=== PATIENT | male | born 1980 | race Caucasian/White ===

== ENCOUNTER 2016-10-01 07:52 | Outpatient (CLI) | payer OTHER ==
[~2016-10-01] VITALS: Ht 170.2 cm; Wt 69.4 kg
[~2016-10-01 07:52] MED LIST: BACTROBAN TOP; DEPA1TAB3 PO; DILA2TAB OR; HEPARIN IV; INVE1.5T PO; INVE156I IM; NICO21DI4 TD; NICODERM CQ TOP; No Historical Meds; No home meds; PERC7.5T8 OR; PRIV5INJ IV; PROZ20CA11 PO; RISP2TAB30 PO; SALINE FLUSHES IV; TRAM50TA2 OR; TRAZ50TA4 PO; TRIAMCINOLONE TOP; VANCOMYCIN IV; [UNRECOGNIZED DRUG - OTHER] PO; anexsia; anexsia PO
[2016-10-01] MEDS ORDERED: ACETAMINOPHEN TAB 650MG DOSE (2X325MG) PO ONE (08:00)
[2016-10-01] MEDS ORDERED: FAMOTIDINE INJ 20MG/2ML VIAL (S0028) IV ONE (08:00)
[2016-10-01] MEDS ORDERED: IMMUNE GLOBULIN 10% 5 GM in APPROPRIATE DILUENT 1 EA IV ONE (08:00)
[2016-10-01] MEDS ORDERED: diphenhydrAMINE INJ 50MG/ML VIAL (J1200) IV ONE (08:00)
[2016-10-01] MEDS ORDERED: IMMUNE GLOBULIN 10% 20 GM in APPROPRIATE DILUENT 1 EA IV ONE (08:00)
[2016-10-01] MEDS ORDERED: dexameTHASONE 20 MG/5 ML VIAL (J1100) IV ONE (08:00)
[2016-10-01] MEDS ORDERED: MEPERIDINE INJ 25 MG/ML VIAL (J2175) IV ONE (08:00)
== END 2016-10-01 11:30 | disposition home or self-care (01) ==
LOC: M INFU 07:52
PROVIDERS: ATTEND Internal Medicine Infectious Disease
DX: D83.9 Common variable immunodeficiency, unspecified (principal); Z88.6 Allergy status to analgesic agent; Z88.0 Allergy status to penicillin; Z88.2 Allergy status to sulfonamides; Z79.899 Other long term (current) drug therapy
CPT/HCPCS: 96365; 96366; 96375; J1100; J1200; J1568; J2175

== ENCOUNTER 2016-10-29 07:54 | Outpatient (CLI) | payer OTHER ==
[~2016-10-29] VITALS: Ht 170.2 cm; Wt 69.4 kg
[2016-10-29] MEDS ORDERED: ACETAMINOPHEN TAB 650MG DOSE (2X325MG) PO ONE (08:15)
[2016-10-29] MEDS ORDERED: dexameTHASONE 20 MG/5 ML VIAL (J1100) IV ONE (08:15)
[2016-10-29] MEDS ORDERED: diphenhydrAMINE INJ 50MG/ML VIAL (J1200) IV ONE (08:15)
[2016-10-29] MEDS ORDERED: MEPERIDINE INJ 25 MG/ML VIAL (J2175) IV ONE (08:15)
[2016-10-29] MEDS ORDERED: FAMOTIDINE INJ 20MG/2ML VIAL (S0028) IV ONE (08:30)
[2016-10-29] MEDS ORDERED: IMMUNE GLOBULIN 10% 5 GM in APPROPRIATE DILUENT 1 EA IV ONE (08:30)
[2016-10-29] MEDS ORDERED: IMMUNE GLOBULIN 10% 20 GM in APPROPRIATE DILUENT 1 EA IV ONE (08:30)
== END 2016-10-29 11:15 | disposition home or self-care (01) ==
LOC: M INFU 07:54
PROVIDERS: ATTEND Internal Medicine Infectious Disease
DX: D83.9 Common variable immunodeficiency, unspecified (principal); Z79.899 Other long term (current) drug therapy; Z88.8 Allergy status to other drugs, medicaments and biological substances; Z88.0 Allergy status to penicillin; Z88.1 Allergy status to other antibiotic agents; Z88.2 Allergy status to sulfonamides
CPT/HCPCS: 96365; 96366; 96375; J1100; J1200; J1568; J2175

== ENCOUNTER 2016-11-26 08:21 | Outpatient (CLI) | payer OTHER ==
[~2016-11-26] VITALS: Ht 170.2 cm; Wt 69.4 kg
[2016-11-26] MEDS ORDERED: diphenhydrAMINE INJ 50MG/ML VIAL (J1200) IV ONE (08:45)
[2016-11-26] MEDS ORDERED: FAMOTIDINE INJ 20MG/2ML VIAL (S0028) IV ONE (08:45)
[2016-11-26] MEDS ORDERED: ACETAMINOPHEN TAB 650MG DOSE (2X325MG) PO ONE (09:00)
[2016-11-26] MEDS ORDERED: IMMUNE GLOBULIN 10% 5 GM in APPROPRIATE DILUENT 1 EA IV ONE (09:00)
[2016-11-26] MEDS ORDERED: MEPERIDINE INJ 25 MG/ML VIAL (J2175) IV ONE (09:00)
[2016-11-26] MEDS ORDERED: dexameTHASONE 20 MG/5 ML VIAL (J1100) IV ONE (09:00)
[2016-11-26] MEDS ORDERED: IMMUNE GLOBULIN 10% 20 GM in APPROPRIATE DILUENT 1 EA IV ONE (09:00)
== END 2016-11-26 12:00 | disposition home or self-care (01) ==
LOC: M INFU 08:21
PROVIDERS: ATTEND Internal Medicine Infectious Disease
DX: D83.9 Common variable immunodeficiency, unspecified (principal); Z88.2 Allergy status to sulfonamides; Z88.1 Allergy status to other antibiotic agents; Z88.8 Allergy status to other drugs, medicaments and biological substances; Z88.0 Allergy status to penicillin
CPT/HCPCS: 96365; 96366; 96375; J1100; J1200; J1568; J2175

== ENCOUNTER 2016-12-27 08:54 | Outpatient (CLI) | payer OTHER ==
[~2016-12-27] VITALS: Ht 170.2 cm; Wt 69.4 kg
[2016-12-27] MEDS ORDERED: ACETAMINOPHEN TAB 650MG DOSE (2X325MG) PO ONE (09:15)
[2016-12-27] MEDS ORDERED: dexameTHASONE 20 MG/5 ML VIAL (J1100) IV ONE (09:15)
[2016-12-27] MEDS ORDERED: MEPERIDINE INJ 25 MG/ML VIAL (J2175) IV ONE (09:15)
[2016-12-27] MEDS ORDERED: IMMUNE GLOBULIN 10% 5 GM in APPROPRIATE DILUENT 1 EA IV ONE ×2 (09:15→09:45)
[2016-12-27] MEDS ORDERED: diphenhydrAMINE INJ 50MG/ML VIAL (J1200) IV ONE (09:15)
[2016-12-27] MEDS ORDERED: IMMUNE GLOBULIN 10% 20 GM in APPROPRIATE DILUENT 1 EA IV ONE ×2 (09:15→09:45)
[2016-12-27] MEDS ORDERED: FAMOTIDINE IV BAG 20 MG in APPROPRIATE DILUENT 1 EA IV ONE (09:15)
== END 2016-12-27 13:00 | disposition home or self-care (01) ==
LOC: M INFU 08:54
PROVIDERS: ATTEND Internal Medicine Infectious Disease
DX: D83.9 Common variable immunodeficiency, unspecified (principal)
CPT/HCPCS: 96365; 96366; 96374; 96375; J1100; J1200; J1568; J2175

== ENCOUNTER → 2017-01-17 | Outpatient (REF) | payer OTHER ==
[2017-01-17 11:58] LABS: BASO # 0.1 K/mm3 (0.0-0.2); BASO % 0.9 % (0.0-1.0); EOS # 0.2 K/mm3 (0.0-0.50); LARGE UNSTAINED CELL # 0.1 K/mm3 (0.0-0.4); LARGE UNSTAINED CELL % 1.5 % (0.0-4.0); LYMPH # 1.9 K/mm3 (1.5-4.5); LYMPH % 20.6 % (24.0-44.0); MEAN CORPUSCULAR HEMOGLOBIN 30.4 pg (27.0-33.0); MEAN CORPUSCULAR HGB CONC 34.8 g/dl (32.0-36.5); MEAN CORPUSCULAR VOLUME 87.4 fl (80.0-96.0); MONO # 0.5 K/mm3 (0.0-0.8); MONO % 5.9 % (0.0-5.0); NEUTROPHILS # 5.8 K/mm3 (1.8-7.7); NEUTROPHILS % 69.2 % (36.0-66.0); PLATELET COUNT, AUTOMATED 267 k/mm3 (150-450); RED CELL DISTRIBUTION WIDTH 12.7 % (11.5-14.5); WHITE BLOOD COUNT 8.4 K/mm3 (4.0-10.0)
[2017-01-17 12:20] LABS: ALBUMIN 4.2 GM/DL (3.2-5.2); ALBUMIN/GLOBULIN RATIO 1.5 (1.00-1.93); BILIRUBIN,DIRECT 0.2 MG/DL (0.0-0.2); BILIRUBIN,TOTAL 1.1 MG/DL (0.2-1.0); FREE T4 1.15 NG/DL (0.76-1.46); IMMUNOGLOBULIN A 21.2 MG/DL (70-400)
== END ==
LOC: M SFHCPLAZ 09:51
PROVIDERS: ATTEND Internal Medicine Infectious Disease
DX: D83.9 Common variable immunodeficiency, unspecified (principal); R00.2 Palpitations; R12 Heartburn

== ENCOUNTER 2017-01-28 10:26 | Outpatient (CLI) | payer OTHER ==
[~2017-01-28] VITALS: Ht 170.2 cm; Wt 69.4 kg
[2017-01-28] MEDS ORDERED: ACETAMINOPHEN TAB 650MG DOSE (2X325MG) PO ONE (10:45)
[2017-01-28] MEDS ORDERED: MEPERIDINE INJ 25 MG/ML VIAL (J2175) IV ONE (11:00)
[2017-01-28] MEDS ORDERED: IMMUNE GLOBULIN 10% 5 GM in APPROPRIATE DILUENT 1 EA IV ONE (11:00)
[2017-01-28] MEDS ORDERED: IMMUNE GLOBULIN 10% 20 GM in APPROPRIATE DILUENT 1 EA IV ONE (11:00)
[2017-01-28] MEDS ORDERED: diphenhydrAMINE INJ 50MG/ML VIAL (J1200) IV ONE (11:00)
[2017-01-28] MEDS ORDERED: dexameTHASONE 20 MG/5 ML VIAL (J1100) IV ONE (11:00)
[2017-01-28] MEDS ORDERED: FAMOTIDINE IV BAG 20 MG in APPROPRIATE DILUENT 1 EA IV ONE (11:00)
== END 2017-01-28 14:20 | disposition home or self-care (01) ==
LOC: M INFU 10:26
PROVIDERS: ATTEND Internal Medicine Infectious Disease
DX: D83.9 Common variable immunodeficiency, unspecified (principal); Z79.899 Other long term (current) drug therapy; Z88.0 Allergy status to penicillin; Z88.1 Allergy status to other antibiotic agents; Z88.2 Allergy status to sulfonamides
CPT/HCPCS: 96365; 96367; 96375; J1100; J1200; J1568; J2175

== ENCOUNTER 2017-02-04 19:26 | Inpatient (IN) | payer OTHER ==
[~2017-02-04] VITALS: Ht 170.2 cm; Wt 73.2 kg
[2017-02-04] MEDS ORDERED: RISP1TAB3 PO (19:41)
[2017-02-04 20:43] LABS: MEAN CORPUSCULAR HEMOGLOBIN 31.8 pg (27.0-33.0); MEAN CORPUSCULAR HGB CONC 36.2 g/dl (32.0-36.5); RED CELL DISTRIBUTION WIDTH 12.3 % (11.5-14.5); WHITE BLOOD COUNT 11.6 K/mm3 (4.0-10.0)
[2017-02-04 20:44] LABS: METHADONE URINE NEGATIVE (NEGATIVE)
[2017-02-04 21:13] LABS: ALBUMIN 4.4 GM/DL (3.2-5.2); ALBUMIN/GLOBULIN RATIO 1.22 (1.00-1.93); ALKALINE PHOSPHATASE 93 U/L (45-117); ALT/SGPT 35 U/L (12-78); ANION GAP 9 MEQ/L (8-16); AST/SGOT 13 U/L (15-37); BILIRUBIN,DIRECT 0.2 MG/DL (0.0-0.2); BILIRUBIN,TOTAL 0.9 MG/DL (0.2-1.0); BLOOD UREA NITROGEN 10 MG/DL (7-18); CALCIUM LEVEL 9.6 MG/DL (8.5-10.1); CARBON DIOXIDE LEVEL 26 MEQ/L (21-32); CHLORIDE LEVEL 106 MEQ/L (98-107); CREATININE FOR GFR 0.89 MG/DL (0.70-1.30); GLOMERULAR FILTRATION RATE > 60.0 (>60); GLUCOSE, FASTING 95 MG/DL (70-105); POTASSIUM SERUM 3.9 MEQ/L (3.5-5.1); SODIUM LEVEL 141 MEQ/L (136-145)
[2017-02-05] MEDS ORDERED: MOM 30ML SUSPENSION UDC PO PRN (02:00)
[2017-02-05] MEDS ORDERED: MAALOX 30 ML SUSP *UDC PO PRN (02:00)
[2017-02-05] MEDS ORDERED: traZODone 50 MG TAB PO PRN (02:00)
[2017-02-05] MEDS ORDERED: DIVA500T9 PO (02:35)
[2017-02-05 04:45] VITALS: BP 134/77
[2017-02-05] MEDS ORDERED: CitaloPRAM (CeleXA) 10 MG TABLET PO SCH (09:00)
[2017-02-05] MEDS: NICOTINE 21MG/24HR 1 EA TRANSDERMAL TD SCH (17:42)
[2017-02-05 18:00] VITALS: BP 140/75
[2017-02-05] MEDS: DIVALPROEX 500MG *ER* TAB PO SCH (18:01)
[2017-02-05] MEDS: OMEPRAZOLE 20 MG CAP PO SCH (18:01)
[2017-02-05] MEDS: PALIPERIDONE 3 MG ER TAB (INVEGA) PO SCH (21:00)
[2017-02-05] MEDS ORDERED: PALIPERIDONE 3 MG ER TAB (INVEGA) PO SCH (21:00)
--- NOTE | 2017-02-06 01:38 | MHHPE ---
DATE OF ADMISSION: 02/05/2017 LEGAL STATUS ON ADMISSION: 9.39 legal status CHIEF COMPLAINT: "I do not know." HISTORY OF PRESENT ILLNESS: 37-year-old male with a history of bipolar disorder admitted to our unit on a 9.39 legal status. According to the chart, the patient came to the emergency department to be evaluated since he stopped taking his psychiatric medications two weeks ago. According to the chart, the patient is now depressed, but was "very manic last week." The patient has difficulty concentration, has thought blocking and there is a significant delay between any question and the answer, more than 45 seconds to answer very simple questions. The patient admits feeling depressed. The patient has significant psychomotor retardation. Very poor eye contact. He is lying in bed. He is tearful and labile. The patient admits poor sleep. The patient was on Invega 1.5 mg at bedtime and Depakote ER 500 mg a day before he stopped taking the medication. The patient is a poor historian and answers questions with "I don't remember." "I don't know." Therefore, I could not get all the information for history and physical and mental status examination. PAST MEDICAL HISTORY: The patient states, "I don't remember." PAST PSYCHIATRIC HISTORY: Gathered from the chart. As above, he has been diagnosed of bipolar disorder. This is his first psychiatric admission to our facility. FAMILY HISTORY: Unknown. SOCIAL HISTORY: Unable to obtain. SUBSTANCE ABUSE HISTORY: The patient denies any problems with drugs or alcohol. The patient's urine drug screen and blood alcohol level is negative. REVIEW OF SYSTEMS: CONSTITUTIONAL: The patient denies weight loss, fevers, chills, weakness, or fatigue. CARDIOVASCULAR: The patient denies chest pain, chest pressure, chest discomfort, palpitations, or edema. RESPIRATORY: The patient denies shortness of breath, cough or sputum. The patient denies pain. PHYSICAL EXAMINATION: As per physician's family and divorce legal assistant. LABORATORIES ON ADMISSION: Complete blood count (CBC) is within normal limits except WBC of 11.6. Comprehensive metabolic panel (BMP) is unremarkable. TSH within normal limits. Blood alcohol level is negative. Urine drug screen is negative. MENTAL STATUS EXAMINATION: [facility]. The patient is lying in bed. Speech is very soft and monotone, poor and significant delay between question and answer. Has very poor eye contact. . Mood is depressed. Affect is restricted and labile, tearful. The patient is oriented to time, place, and person. Attention, concentration and memory are significant impaired. The patient denies auditory or visual hallucinations. The patient reports some feeling of paranoia, "at times." The patient is denying suicidal or homicidal ideation. Judgment and insight are poor. DIAGNOSES: AXIS I: Bipolar disorder, depressed episode. AXIS II: Deferred. AXIS III: None acute. INITIAL TREATMENT PLAN: Patient was admitted on a 9.39 legal status. Complete history was obtained. With his permission, family will be contacted, and database will be expanded. His medication regimen will be reviewed and changed accordingly. He will be provided with protected environment. He will be treated with individual, group, and milieu therapies. He will also receive supportive psychoeducation. Discharge planning will commence immediately. Length of stay will be between 7 and 10 days. Outpatient followup will be strongly recommended. The treatment plan will focus initially on depression, risk for suicide, altered thoughts, cognitive impairment.
[2017-02-06 06:32] VITALS: BP 137/77
[2017-02-06] MEDS: CitaloPRAM (CeleXA) 10 MG TABLET PO SCH (09:00)
[2017-02-06] MEDS: OMEPRAZOLE 20 MG CAP PO SCH (09:00)
[2017-02-06] MEDS: DIVALPROEX 500MG *ER* TAB PO SCH (09:00)
[2017-02-06] MEDS: NICOTINE 21MG/24HR 1 EA TRANSDERMAL TD SCH (09:34)
[2017-02-06] MEDS: ACETAMINOPHEN TAB 650MG DOSE (2X325MG) PO PRN (17:45)
[2017-02-06 18:00] VITALS: BP 145/77
[2017-02-06] MEDS: PALIPERIDONE 3 MG ER TAB (INVEGA) PO SCH (21:00)
[2017-02-07 06:48] VITALS: BP_SYST 112; BP_SYST 138; BP_DIAS 58; BP_DIAS 76
[2017-02-07] MEDS: OMEPRAZOLE 20 MG CAP PO SCH ×2 (09:00→17:46)
[2017-02-07] MEDS: DIVALPROEX 500MG *ER* TAB PO SCH ×2 (09:00→17:46)
[2017-02-07] MEDS ORDERED: LORazepam 1 MG TAB PO SCH (09:00)
[2017-02-07] MEDS: CitaloPRAM (CeleXA) 10 MG TABLET PO SCH ×2 (09:00→17:46)
[2017-02-07] MEDS ORDERED: LORazepam 2 MG/ML VIAL (J2060) IM SCH (09:00)
[2017-02-07] MEDS: NICOTINE 21MG/24HR 1 EA TRANSDERMAL TD SCH (10:14)
--- NOTE | 2017-02-07 10:31 | HPEPDOC ---
Medical History and Physical Date of Admission February 05, 2017 at 01:56 History and Physical PCP: [facility] ATTENDING: Dr. Armando Forbes HPI: 37yoM admitted to [facility] for unspecified depressive disorder, being medically examined today. Patient declines to participate with exam at this time. History is taken from the chart. 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 Dr Rojas 08/11. IVIG infusion 01/28/[address] Rojas. History of MRSA abscess in the past I&D of a MRSA abscess of his left leg and left hand in the past Migraine headaches PSHX: Vasectomy I&D of left hand and leg (as above) SOCHX: Resides in: [place] Marital Status: Single Kids: 2 children Employment: Works at [employer] Tobacco use: One pack per day for greater than 10 years ETOH: History of 1-2 drinks daily. Illicit Drugs: Denies IV Drug Use: Denies Tattoos done unprofessionally: Denies FAMHX: Mother: Alive, history of hypertension Father: Alive, well Siblings: Alive, well Children: Alive, well Unexpected deaths due to medical reasons: None. ROS: Patient declines to provide any history at this time. PE: Patient declines physical examination at this time. EKG: Pending A&P: 37yoM admitted to [facility] for unspecified depressive disorder. 1. Psych. Plan per Psychiatry. Obtain baseline EKG to assure the safety of psychiatric medications as they can prolong the QT interval. 2. Nicotine dependence. Patch available. 3. Mild leukocytosis on admission. Patient declining to provide any history at this time. Tmax 100.9. Monitor clinically. Recheck CBC, check UA. 4. Follow up with PCP at discharge. 5. 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 Follows with Dr. Rojas as outpt. IVIG monthly, last infusion 01/28/17. 6. As previously noted Pt declined to participate with history or physical exam. Vital Signs Vital Signs Date Time Temp Pulse Resp B/P (MAP) Pulse Ox O2 Delivery O2 Flow Rate FiO2 02/07/17 09:37 99.0 02/07/17 06:48 97 18 138/76 (96) 02/05/17 04:45 98 Room Air Laboratory Data Labs 24H Item Value Date Time White Blood Count 11.6 K/mm3 H 02/04/172027 Red Blood Count 5.43 M/mm3 02/04/172027 Hemoglobin 17.3 g/dl 02/04/172027 Hematocrit 47.8 % 02/04/172027 Mean Corpuscular Volume 88.0 fl 02/04/172027 Mean Corpuscular Hemoglobin 31.8 pg 02/04/172027 Mean Corpuscular Hemoglobin Concent 36.2 g/dl 02/04/172027 Red Cell Distribution Width 12.3 % 02/04/172027 Platelet Count 307 k/mm3 02/04/172027 Sodium Level 141 MEQ/L 02/04/172027 Potassium Level 3.9 MEQ/L 02/04/172027 Chloride Level 106 MEQ/L 02/04/172027 Carbon Dioxide Level 26 MEQ/L 02/04/172027 Anion Gap 9 MEQ/L 02/04/172027 Blood Urea Nitrogen 10 MG/DL 02/04/172027 Creatinine 0.89 MG/DL 02/04/172027 Glomerular Filtration Rate > 60.0 02/04/172027 Fasting Glucose 95 MG/DL 02/04/172027 Calcium Level 9.6 MG/DL 02/04/172027 Total Bilirubin 0.9 MG/DL 02/04/172027 Direct Bilirubin 0.2 MG/DL 02/04/172027 Aspartate Amino Transf (AST/SGOT) 13 U/L L 02/04/172027 Alanine Aminotransferase (ALT/SGPT) 35 U/L 02/04/172027 Alkaline Phosphatase 93 U/L 02/04/172027 Total Protein 8.0 GM/DL 02/04/172027 Albumin 4.4 GM/DL 02/04/172027 Albumin/Globulin Ratio 1.22 02/04/172027 Thyroid Stimulating Hormone (TSH) 2.430 uIU/ML 02/04/172027 Salicylates Level 4.0 MG/DL L 02/04/172027 Urine Opiates Screen NEGATIVE 02/04/172019 Urine Methadone Screen NEGATIVE 02/04/172019 Acetaminophen Level < 2.0 UG/ML L 02/04/172027 Urine Barbiturates Screen NEGATIVE 02/04/172019 Valproic Acid (Depakene) Level 26.9 UG/ML L 02/04/172027 Urine Phencyclidine Screen NEGATIVE 02/04/172019 Urine Amphetamines Screen NEGATIVE 02/04/172019 Urine Benzodiazepines Screen NEGATIVE 02/04/172019 Urine Cocaine Metabolite Screen NEGATIVE 02/04/172019 Urine Cannabinoids Screen NEGATIVE 02/04/172019 Ethyl Alcohol Level < 0.003 % 02/04/172027 Home Medications Scheduled Divalproex Sodium (Divalproex Sodium ER) 500 Mg Tab, 500 MG PO DAILY Paliperidone (Invega) 1.5 Mg Tab, 1.5 MG PO QHS Allergies Coded Allergies: Aspirin (Verified Allergy, Unknown, 05/13/15) Clindamycin (Verified Allergy, Unknown, 05/13/15) Penicillins (Verified Allergy, Unknown, 12/27/12) Penicillins Cross Reactors (Verified Allergy, Unknown, 12/27/12) Sulfa Drugs (Verified Allergy, Unknown, 12/27/12) Sulfa Drugs Cross Reactors (Verified Allergy, Unknown, 12/27/12) Marilyn Schafer February 07, 2017 10:31
[2017-02-07 11:01] LABS: MEAN CORPUSCULAR HEMOGLOBIN 31.7 pg (27.0-33.0); MEAN CORPUSCULAR HGB CONC 35.4 g/dl (32.0-36.5); MEAN CORPUSCULAR VOLUME 89.8 fl (80.0-96.0); RED CELL DISTRIBUTION WIDTH 12.1 % (11.5-14.5); WHITE BLOOD COUNT 11.6 K/mm3 (4.0-10.0)
[2017-02-07 12:01] VITALS: BP 136/81
[2017-02-07 18:00] VITALS: BP 129/81
--- NOTE | 2017-02-07 18:05 | ECGEPIP ---
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
--- NOTE | 2017-02-07 18:59 | IPN ---
DATE OF SERVICE: 02/06/2017 37-year-old male with history of bipolar disorder admitted for a depressive episode, significant thought blocking and delay between question and answer. Psychomotor retardation. Very poor eye contact. Blunted affect. SUBJECTIVE: "I cannot do this." OBJECTIVE: No major changes from yesterday. Patient has refused to take the Invega at bedtime, but is taking the Depakote and very low dosage of Celexa. Patient continues with significant thought blocking, very poor speech, psychomotor retardation, stays in his bed, has no interaction with other patients and staff. MENTAL STATUS EXAMINATION: Patient is dressed in [facility]. Has very poor eye contact. Speech is very poor with thought blocking. Mood is depressed. Affect is blunted. Appears to react to internal stimuli. Unable to test attention, concentration and memory. Insight and judgment is poor. ASSESSMENT: Bipolar disorder, depressed episode. PLAN: 1. Increase Celexa to 10 mg by mouth every morning. 2. Continue Invega. 3. Continue with 500 mg nightly. 4. Continue individual and group therapy.
--- NOTE | 2017-02-07 19:32 | MHIPNPDOC ---
[facility] Progress Note Progress Note DATE OF SERVICE: 02/07/17 HISTORY: Evaluated 37 year old male with history of who was admitted for Depression, medication non compliance and not being able to function. According to history, he has been manic a couple of weeks ago, and when he came in, he had psychomotor retardation, poor eye contact, had thought blocking, very low energy levels and spoke very little. This morning he was seen in his room and had not being able to eat his breakfast, he didnt speak at all, at times his eyes seemed to be tearful, had poor eye contact and seemed to struggle when he tried to speak. He made an effort, but he just couldnt do it. The author of this document decided to start him on Ativan 1 mg. IM BID for catatonia, because he was not able to swallow his pills or eat. He had a good response to this medication and was able to relax, sleep and take some medications. VITAL SIGNS: See below. NEW TEST RESULTS: None CURRENT MEDICATIONS: See below. MENTAL STATUS EXAMINATION: Patient is a 37-year old male, who is in his room, dressed in hospital clothes, looking confused, with poor eye contact. Speech: Is He doesnt speak at all. He tries but he cant. Language skills are unable to assess because pt. is catatonic and cant speak for now. Thought processes including: Unable to assess. The patient was not talking. Thought content: Unable to assess, He couldnt talk. Abstract reasoning, and computation: Unable to assess. Description of associations: Unable to assess. Description of abnormal or psychotic thoughts: Unable to assess, patient is not able to talk due to catatonia. Judgment: Unable to assess, but it seems to be very poor ( by history) because he stopped taking his medications. Insight: Poor Orientation: Unable to assess. Patient is not able to speak due to catatonia. Recent and remote memory: Unable to assess. Attention span and concentration: Unable to assess. Language: Unable to assess. Fund of knowledge: Unable to assess. Mood: He couldnt tell me how he feels but he looks very depressed.. Affect: Sad , constricted DIAGNOSES: 1. Bipolar disorder, manic episode. 2. Catatonia. 3. . ASSESSMENT:Pt. has shown improvement to first dose of Ativan 1 mg. IM, hoping he will continue to improve with this same medication to overcome the catatonia. Once he is able to overcome that problem, he will be able to take his medications regularly. Patient is very depressed. MANAGEMENT PLAN: Continue with current treatment plan, encourage him to attend groups, to interact with peers and staff and adjust medications when needed.. TIME SPENT: 20 minutes. Vital Signs Vital Signs Date Time Temp Pulse Resp B/P (MAP) Pulse Ox O2 Delivery O2 Flow Rate FiO2 02/07/17 18:00 98.1 88 16 129/81 (97) 02/07/17 12:01 99 Room Air Laboratory Data CBC/BMP Laboratory Tests 02/07/17 10:51 Red Blood Count 5.18, Mean Corpuscular Volume 89.8, Mean Corpuscular Hemoglobin 31.7, Mean Corpuscular Hemoglobin Concent 35.4, Red Cell Distribution Width 12.1 Current Medications Current Medications Acetaminophen (Tylenol Tab) 650 mg Q6HP PRN PO HEADACHE or DISCOMFORT Last administered on 02/06/17 17:45; Start 02/05/17 at 02:00; Stop 03/07/17 at 01:59 Al Hydrox/Mg Hydrox/Simethicone (Mylanta) 30 ml Q4HP PRN PO HEARTBURN/ INDIGESTION; Start 02/05/17 at 02:00; Stop 03/07/17 at 01:59 Citalopram Hydrobromide (CeleXA) 5 mg QAM PO Last administered on 02/05/17 18: 01; Start 02/05/17 at 09:00; Stop 02/06/17 at 13:16; Status DC Citalopram Hydrobromide (CeleXA) 10 mg DAILY PO Last administered on 02/07/17 17:46; Start 02/06/17 at 09:00; Stop 03/08/17 at 08:59 Divalproex Sodium (Depakote Er) 500 mg DAILY PO Last administered on 02/07/17 17:46; Start 02/05/17 at 09:00; Stop 03/07/17 at 08:59 Home Med (Med Rec Complete!) ASDIRECTED XX ; Start 02/05/17 at 02:45; Stop at 02:45; Status DC Lorazepam (Ativan) 1 mg BID IM Last administered on 02/07/17 11:21; Start at 09:00; Stop 02/14/17 at 08:59 Lorazepam (Ativan) 1 mg BID PO ; Start 02/07/17 at 09:00; Stop 02/07/17 at 10:35 ; Status DC Magnesium Hydroxide (Milk Of Magnesia) 30 ml DAILYPRN PRN PO CONSTIPATION; Start 02/05/17 at 02:00; Stop 03/07/17 at 01:59 Nicotine (Nicoderm Cq 21mg) 1 patch DAILY TD Last administered on 02/07/17 10: 14; Start 02/05/17 at 09:00; Stop 03/07/17 at 08:59 Omeprazole (PriLOSEC) 40 mg DAILY PO Last administered on 02/07/17 17:46; Start 02/05/17 at 09:00; Stop 03/07/17 at 08:59 Paliperidone (Invega) 1.5 mg QHS PO ; Start 02/05/17 at 21:00; Stop 02/05/17 at 21:00; Status DC Paliperidone (Invega) 3 mg QHS PO ; Start 02/05/17 at 21:00; Stop 03/07/17 at 20 :59 Trazodone HCl (Desyrel) 50 mg QHSP PRN PO INSOMNIA; Start 02/05/17 at 02:00; Stop 03/07/17 at 01:59 Allergies Coded Allergies: Aspirin (Verified Allergy, Unknown, 05/13/15) Clindamycin (Verified Allergy, Unknown, 05/13/15) Penicillins (Verified Allergy, Unknown, 12/27/12) Penicillins Cross Reactors (Verified Allergy, Unknown, 12/27/12) Sulfa Drugs (Verified Allergy, Unknown, 12/27/12) Sulfa Drugs Cross Reactors (Verified Allergy, Unknown, 12/27/12) BRIANNA MOYA MD February 07, 2017 19:32
[2017-02-07] MEDS: PALIPERIDONE 3 MG ER TAB (INVEGA) PO SCH (21:00)
[2017-02-08 06:30] VITALS: BP 123/73
[2017-02-08] MEDS: LORazepam 1 MG TAB PO SCH ×2 (09:03→20:40)
[2017-02-08] MEDS: DIVALPROEX 500MG *ER* TAB PO SCH (09:03)
[2017-02-08] MEDS: OMEPRAZOLE 20 MG CAP PO SCH (09:03)
[2017-02-08] MEDS: NICOTINE 21MG/24HR 1 EA TRANSDERMAL TD SCH (09:03)
[2017-02-08] MEDS: CitaloPRAM (CeleXA) 10 MG TABLET PO SCH (09:03)
[2017-02-08 09:25] LABS: BASO # 0.1 K/mm3 (0.0-0.2); BASO % 0.7 % (0.0-1.0); EOS # 0.2 K/mm3 (0.0-0.50); EOS % 1.7 % (0.0-3.0); LARGE UNSTAINED CELL # 0.1 K/mm3 (0.0-0.4); LARGE UNSTAINED CELL % 1.1 % (0.0-4.0); LYMPH # 1.3 K/mm3 (1.5-4.5); LYMPH % 12.2 % (24.0-44.0); MEAN CORPUSCULAR HEMOGLOBIN 31.1 pg (27.0-33.0); MEAN CORPUSCULAR HGB CONC 34.9 g/dl (32.0-36.5); MEAN CORPUSCULAR VOLUME 89.1 fl (80.0-96.0); MONO # 0.6 K/mm3 (0.0-0.8); MONO % 5.1 % (0.0-5.0); NEUTROPHILS # 8.6 K/mm3 (1.8-7.7); NEUTROPHILS % 79.2 % (36.0-66.0); PLATELET COUNT, AUTOMATED 303 k/mm3 (150-450); WHITE BLOOD COUNT 10.9 K/mm3 (4.0-10.0)
--- NOTE | 2017-02-08 16:01 | MHIPNPDOC ---
[facility] Progress Note Progress Note DATE OF SERVICE: 02/08/17 HISTORY: Evaluated 37-year-old male with history of bipolar disorder who was brought to the emergency room over the weekend because he was seen extremely depressed by his family. According to his mother he stopped taking all his medications except for Depakote since August 2016. When he was admitted to the [facility] he was seen catatonic and yesterday when he was evaluated he could not respond even when he was doing an effort to speak, he was not able to eat his breakfast and he was not able to drink. After he is IM doses of Ativan yesterday he improved, and IM Ativan was discontinued but he is still taking the same medication but orally. Today he was able to express how he felt , how confused she has been, that everything has been blurry and he admits that he stopped taking paliperidone because he felt that it was not working anymore. He was offered the possibility to start treatment with another medication and he accepted. He has been started on Zyprexa 5 mg by mouth daily at bedtime and the dose will be titrated and increased accordingly. He has being taking his Depakote and he continues to be on citalopram 10 mg by mouth daily. The patient is pleasant,, cooperative, with poor eye contact, with depressed mood and affect, slow speech, organized thought processes, thought content negative for homicidal ideation, negative for psychosis positive for passive suicidal thoughts. He is alert and oriented to place and person but not to date and time. His memory is poor at this time, he has gaps. His attention and concentration are fair. Abstract thinking is fair. Computation is poor because its difficult for him to concentrate. Fund of knowledge was not assessed because patient has trouble focusing and has thought blocking. Patient's insight and judgment are still poor but slowly improving. His impulse control is fair. He continues to be a danger to self because he is still very depressed and still has passive suicidal thoughts. . DIAGNOSES: 1. Bipolar disorder, current depressive episode 2. Catatonia. ASSESSMENT: The patient will continue on the same medications and those will be titrated accordingly. He needs to continue an inpatient mental health unit until stabilized properly MANAGEMENT PLAN: As above. TIME SPENT: 20 minutes. Vital Signs Vital Signs Date Time Temp Pulse Resp B/P (MAP) Pulse Ox O2 Delivery O2 Flow Rate FiO2 02/08/17 06:30 98.3 91 18 123/73 (90) 02/07/17 12:01 99 Room Air Laboratory Data 24H Labs Laboratory Tests 2 02/08/17 09:00: White Blood Count 10.9H, Red Blood Count 5.02, Hemoglobin 15.6, Hematocrit 44.8 , Mean Corpuscular Volume 89.1, Mean Corpuscular Hemoglobin 31.1, Mean Corpuscular Hemoglobin Concent 34.9, Red Cell Distribution Width 12.0, Platelet Count 303, Neutrophils (%) (Auto) 79.2H, Lymphocytes (%) (Auto) 12.2L, Monocytes (%) (Auto) 5.1H, Eosinophils (%) (Auto) 1.7, Basophils (%) (Auto) 0.7 , Neutrophils # (Auto) 8.6H, Lymphocytes # (Auto) 1.3L, Monocytes # (Auto) 0.6, Eosinophils # (Auto) 0.2, Basophils # (Auto) 0.1, Large Unclassified Cells % 1.1 , Large Unclassified Cells # 0.1 02/08/17 09:30: Urine Appearance HAZY, Urine Color YELLOW, Urine pH 5.0, Urine Specific [place] 1.028, Urine Protein NEGATIVE, Urine Glucose (UA) NEGATIVE, Urine Ketones 1+H, Urine Urobilinogen 0.2, Urine Bilirubin NEGATIVE, Urine Leukocyte Esterase NEGATIVE, Urine Blood NEGATIVE, Urine Nitrite NEGATIVE, Urine WBC (Auto) 1, Urine RBC (Auto) 2, Urine Hyaline Casts (Auto) 0, Urine Bacteria (Auto) NEGATIVE , Urine Squamous Epithelial Cells 0, Urine Mucus (Auto) MODERATE, Urine Sperm ( Auto) CBC/BMP Laboratory Tests 02/08/17 09:00 Red Blood Count 5.02, Mean Corpuscular Volume 89.1, Mean Corpuscular Hemoglobin 31.1, Mean Corpuscular Hemoglobin Concent 34.9, Red Cell Distribution Width 12.0 , Neutrophils (%) (Auto) 79.2 H, Lymphocytes (%) (Auto) 12.2 L, Monocytes (%) ( Auto) 5.1 H, Eosinophils (%) (Auto) 1.7, Basophils (%) (Auto) 0.7, Neutrophils # (Auto) 8.6 H, Lymphocytes # (Auto) 1.3 L, Monocytes # (Auto) 0.6, Eosinophils # (Auto) 0.2, Basophils # (Auto) 0.1 Current Medications Current Medications Acetaminophen (Tylenol Tab) 650 mg Q6HP PRN PO HEADACHE or DISCOMFORT Last administered on 02/06/17 17:45; Start 02/05/17 at 02:00; Stop 03/07/17 at 01:59 Al Hydrox/Mg Hydrox/Simethicone (Mylanta) 30 ml Q4HP PRN PO HEARTBURN/ INDIGESTION; Start 02/05/17 at 02:00; Stop 03/07/17 at 01:59 Citalopram Hydrobromide (CeleXA) 5 mg QAM PO Last administered on 02/05/17 18: 01; Start 02/05/17 at 09:00; Stop 02/06/17 at 13:16; Status DC Citalopram Hydrobromide (CeleXA) 10 mg DAILY PO Last administered on 02/08/17 09:03; Start 02/06/17 at 09:00; Stop 03/08/17 at 08:59 Divalproex Sodium (Depakote Er) 500 mg DAILY PO Last administered on 02/08/17 09:03; Start 02/05/17 at 09:00; Stop 03/07/17 at 08:59 Home Med (Med Rec Complete!) ASDIRECTED XX ; Start 02/05/17 at 02:45; Stop at 02:45; Status DC Lorazepam (Ativan) 1 mg BID IM Last administered on 02/07/17 11:21; Start at 09:00; Stop 02/07/17 at 23:44; Status DC Lorazepam (Ativan) 1 mg BID PO ; Start 02/07/17 at 09:00; Stop 02/07/17 at 10:35 ; Status DC Lorazepam (Ativan) 1 mg BID PO Last administered on 02/08/17 09:03; Start at 09:00; Stop 02/15/17 at 08:59 Magnesium Hydroxide (Milk Of Magnesia) 30 ml DAILYPRN PRN PO CONSTIPATION; Start 02/05/17 at 02:00; Stop 03/07/17 at 01:59 Nicotine (Nicoderm Cq 21mg) 1 patch DAILY TD Last administered on 5/16/17at 09: 03; Start 02/05/17 at 09:00; Stop 03/07/17 at 08:59 Olanzapine (ZyPREXA) 5 mg QHS PO ; Start 02/08/17 at 21:00; Stop 03/10/17 at 20: 59 Omeprazole (PriLOSEC) 40 mg DAILY PO Last administered on 02/08/17t 09:03; Start 02/05/17 at 09:00; Stop 03/07/17 at 08:59 Paliperidone (Invega) 1.5 mg QHS PO ; Start 02/05/17 at 21:00; Stop 02/05/17 at 21:00; Status DC Paliperidone (Invega) 3 mg QHS PO ; Start 02/05/17 at 21:00; Stop 02/08/17 at 10 :46; Status DC Trazodone HCl (Desyrel) 50 mg QHSP PRN PO INSOMNIA; Start 02/05/17 at 02:00; Stop 03/07/17 at 01:59 Allergies Coded Allergies: Aspirin (Verified Allergy, Unknown, 05/13/15) Clindamycin (Verified Allergy, Unknown, 05/13/15) Penicillins (Verified Allergy, Unknown, 12/27/12) Penicillins Cross Reactors (Verified Allergy, Unknown, 12/27/12) Sulfa Drugs (Verified Allergy, Unknown, 12/27/12) Sulfa Drugs Cross Reactors (Verified Allergy, Unknown, 12/27/12) BRIANNA MOYA MD February 08, 2017 16:01
[2017-02-08 18:07] VITALS: BP 120/71
[2017-02-08] MEDS: OLANZapine 5 MG TAB PO SCH (20:40)
[2017-02-09 06:45] VITALS: BP 137/79
[2017-02-09 07:26] LABS: BASO # 0.1 K/mm3 (0.0-0.2); BASO % 0.6 % (0.0-1.0); EOS # 0.4 K/mm3 (0.0-0.50); EOS % 3.9 % (0.0-3.0); LARGE UNSTAINED CELL # 0.2 K/mm3 (0.0-0.4); LARGE UNSTAINED CELL % 1.7 % (0.0-4.0); LYMPH # 1.9 K/mm3 (1.5-4.5); LYMPH % 20.8 % (24.0-44.0); MEAN CORPUSCULAR HEMOGLOBIN 31.3 pg (27.0-33.0); MEAN CORPUSCULAR VOLUME 89.3 fl (80.0-96.0); MONO # 0.6 K/mm3 (0.0-0.8); MONO % 6.3 % (0.0-5.0); NEUTROPHILS % 66.7 % (36.0-66.0); PLATELET COUNT, AUTOMATED 310 k/mm3 (150-450); RED CELL DISTRIBUTION WIDTH 11.9 % (11.5-14.5); WHITE BLOOD COUNT 8.9 K/mm3 (4.0-10.0)
[2017-02-09] MEDS: DIVALPROEX 500MG *ER* TAB PO SCH (08:11)
[2017-02-09] MEDS: CitaloPRAM (CeleXA) 10 MG TABLET PO SCH (08:11)
[2017-02-09] MEDS: NICOTINE 21MG/24HR 1 EA TRANSDERMAL TD SCH (08:11)
[2017-02-09] MEDS: LORazepam 1 MG TAB PO SCH ×2 (08:11→20:39)
[2017-02-09] MEDS: OMEPRAZOLE 20 MG CAP PO SCH (08:11)
[2017-02-09] MEDS: ACETAMINOPHEN TAB 650MG DOSE (2X325MG) PO PRN (08:58)
[2017-02-09 18:01] VITALS: BP 129/80
[2017-02-09] MEDS: OLANZapine 5 MG TAB PO SCH (20:39)
--- NOTE | 2017-02-09 22:17 | IPN ---
DATE: 02/09/2017 Evaluated 37-year-old male with history of bipolar disorder and medication noncompliance who was brought to the emergency room over the weekend because he was seen extremely depressed by his family. According to his mother, and now according to him, he stopped taking the paliperidone that he was supposed to take approximately in July or August. He says that he did not want to continue taking it because he thought that it was the same thing as Risperdal and that he already has taken Risperdal before and it had worked for a brief period of time but then it stopped being effective as to controlling his symptoms. He says that he does not mind taking Depakote and he was told that yesterday he agreed on taking Zyprexa and that he was started on Zyprexa 5 mg by mouth nightly. The patient was seen at the office, he had a good attitude, good eye contact, he was dressed in hospital clothes, and he was cooperative with interview. His speech is normal, soft spoken. His thought process is more organized but he still presents thought blocking, although less than before. His thought content is negative for homicidal ideation, negative for psychotic thoughts, but is still positive for hopelessness, helplessness, worthlessness, and passive suicidal thoughts. His attention and concentration are still poor, his memory, recent and remote, are limited, and his insight and judgment are still poor but are slowly improving. His impulse control is fair. The patient reports that he cannot remember many of the things that have happened to him, including the two previous days when he has been hospitalized. He has shown improvement in regards to his catatonia. He is taking his medications, and continues on Ativan , that was the medication that helped him to come out of the catatonia. He is more sociable, has a more reactive affect, he smiles occasionally, and has been engaging with other patients and has been interactive with staff. He has been attending groups. He will continue the same treatment, will followup, closely monitor him, and adjust medications as needed. Will continue to encourage him to attend groups and interact with staff and peers. Will followup. TIFFANIE
[2017-02-10 06:33] VITALS: BP 133/78
[2017-02-10] MEDS: DIVALPROEX 500MG *ER* TAB PO SCH (08:10)
[2017-02-10] MEDS: NICOTINE 21MG/24HR 1 EA TRANSDERMAL TD SCH (08:10)
[2017-02-10] MEDS: LORazepam 1 MG TAB PO SCH ×2 (08:11→21:03)
[2017-02-10] MEDS: OMEPRAZOLE 20 MG CAP PO SCH (08:11)
[2017-02-10] MEDS: CitaloPRAM (CeleXA) 10 MG TABLET PO SCH (08:11)
[2017-02-10 18:00] VITALS: BP 135/68
--- NOTE | 2017-02-10 19:29 | IPN ---
DATE: 02/10/2017 Evaluated 37-year-old male with a history of bipolar disorder, and medication, noncompliance, who was admitted through the emergency room over last weekend because he was extremely depressed and catatonic. He has received treatment at the inpatient mental health unit with Zyprexa 5 mg by mouth nightly, citalopram 10 mg by mouth daily and Depakote. As an as needed medication for insomnia, he takes trazodone. The patient was seen today at the office, dressed in hospital clothes, cooperative, with good eye contact and pleasant attitude. His speech is normal. His thought process is more organized, although he exhibits thought blocking, but much less compared to previous days.. His thought content is negative for suicidal ideation, negative for homicidal ideation and negative for delusional thoughts and visual or auditory hallucinations. His attention and concentration have improved. His memory is slowly improving, although he still says that he cannot remember a lot of things on the day that he was hospitalized, and he had the impression that when he was at the [facility], was not real. His impulse control is good, his insight and judgment are still improving. For example, he asked me today if I truly believed that he has bipolar disorder, and the author of this document said that yes I do believe he has bipolar disorder. The author of this document believes that most likely he did not think that he really was bipolar, that he was in denial and most likely that is why he stopped taking his medications because he said that he remembers the last time that he had his Invega injection was around January of last year. He does not report any medication side effects, in fact, he believes that Zyprexa has helped him, and he is grateful that he received Ativan, that is the medication that brought him out of the catatonia and that he is still receiving. Discussed with the patient the possibility of switching from Zyprexa to Abilify in order to place him on an injection that will be better for him, so that he would not have to take oral medications and forget them or stop taking them. He agrees to try this option, and this author will speak to him again about this and try to start him on Abilify tomorrow, so that when he gets discharged he can receive the Abilify Maintena injection. Mr. Espinal, the patient, has been attending groups, interacts with peers and staff in a respectful and appropriate manner. He has shown improvement and a good response to medications and to group therapy. Will continue to watch him closely, monitor medication adjustments and continue to encourage him to attend groups. Will followup. TIFFANIE
[2017-02-10] MEDS: OLANZapine 5 MG TAB PO SCH (21:03)
[2017-02-10] MEDS: ACETAMINOPHEN TAB 650MG DOSE (2X325MG) PO PRN (21:05)
[2017-02-11 06:26] VITALS: BP 131/63
[2017-02-11] MEDS: OMEPRAZOLE 20 MG CAP PO SCH (08:09)
[2017-02-11] MEDS: LORazepam 1 MG TAB PO SCH ×2 (08:09→20:51)
[2017-02-11] MEDS: DIVALPROEX 500MG *ER* TAB PO SCH (08:09)
[2017-02-11] MEDS: NICOTINE 21MG/24HR 1 EA TRANSDERMAL TD SCH (08:09)
[2017-02-11] MEDS: CitaloPRAM (CeleXA) 10 MG TABLET PO SCH (08:09)
[2017-02-11 18:01] VITALS: BP 136/74
[2017-02-11] MEDS: OLANZapine 5 MG TAB PO SCH (20:51)
[2017-02-11] MEDS: ACETAMINOPHEN TAB 650MG DOSE (2X325MG) PO PRN (20:51)
[2017-02-12 06:30] VITALS: BP 128/76
[2017-02-12] MEDS: NICOTINE 21MG/24HR 1 EA TRANSDERMAL TD SCH (08:10)
[2017-02-12] MEDS: CitaloPRAM (CeleXA) 10 MG TABLET PO SCH (08:11)
[2017-02-12] MEDS: OMEPRAZOLE 20 MG CAP PO SCH (08:11)
[2017-02-12] MEDS: LORazepam 1 MG TAB PO SCH ×2 (08:11→20:41)
[2017-02-12] MEDS: DIVALPROEX 500MG *ER* TAB PO SCH (08:11)
[2017-02-12] MEDS: ACETAMINOPHEN TAB 650MG DOSE (2X325MG) PO PRN (12:14)
--- NOTE | 2017-02-12 12:46 | IPN ---
DATE: 02/11/2017 Evaluated 37-year-old male with a history of bipolar disorder and medication noncompliance who was admitted last weekend to the inpatient mental health unit. At the time of evaluation, the patient was cooperative with interview, pleasant with poor eye contact at times. His thought process is still positive for thought blocking. His thought content is negative for homicidal ideation, is negative for suicidal ideation, is negative for auditory or visual hallucinations, and is negative for delusional thoughts. His mood and affect are brighter. He smiles at this time, because when he was initially seen at the unit, his expression did not communicate any feelings or any emotions. His recent and remote memory are limited, because he still has gaps in his memory in regard to his previous experience when he was catatonic. His attention and concentration are fair. His fund of knowledge is good. His insight and judgment are improving. His impulse control is good. ASSESSMENT: The patient has improved over this last week, and this author explained to him that he has been taking Zyprexa because he requested not to use Risperdal, Abilify, or paliperidone, because he expressed that he did not like these medications. This author also explained to him that it will be more convenient for him to go back to Abilify of paliperidone so that he could use the injectable form of either one of these medications, but most likely he will benefit more from Abilify Maintena, because he can receive it almost every 3 months, although he also could benefit from Invega, but apparently he had Invega before, and he did not like it very much. The reason that he did not like it was not exactly because of the medication, but because he was in denial about having bipolar disorder, and for that very same reason, he stopped using oral and injectable medicine. At this time, he has gained some insight into his illness, and he has started accepting that he needs treatment every single day and be compliant with medications to avoid episodes as this one that he has just lived of being severely depressed, catatonic, and psychotic. The patient will be continued to be monitored closely. He will be encouraged to attend groups, as he has been attending this week, will be encouraged to interact more with peers and staff, and will make medication adjustments if necessary. Will followup.
[2017-02-12 18:06] VITALS: BP 116/56
[2017-02-13 06:22] VITALS: BP 138/71
[2017-02-13] MEDS: CitaloPRAM (CeleXA) 10 MG TABLET PO SCH (08:12)
[2017-02-13] MEDS: OMEPRAZOLE 20 MG CAP PO SCH (08:12)
[2017-02-13] MEDS: LORazepam 1 MG TAB PO SCH ×2 (08:12→20:34)
[2017-02-13] MEDS: NICOTINE 21MG/24HR 1 EA TRANSDERMAL TD SCH (08:12)
[2017-02-13] MEDS: DIVALPROEX 500MG *ER* TAB PO SCH (08:12)
[2017-02-13] MEDS: ACETAMINOPHEN TAB 650MG DOSE (2X325MG) PO PRN (08:13)
[2017-02-13 18:00] VITALS: BP 138/78
[2017-02-13] MEDS: ARIPiprazole 10 MG TAB PO SCH (20:34)
[2017-02-14 06:00] VITALS: BP 110/66
[2017-02-14] MEDS: CitaloPRAM (CeleXA) 10 MG TABLET PO SCH (08:21)
[2017-02-14] MEDS: LORazepam 1 MG TAB PO SCH ×2 (08:21→20:38)
[2017-02-14] MEDS: DIVALPROEX 500MG *ER* TAB PO SCH ×2 (08:21→20:38)
[2017-02-14] MEDS: OMEPRAZOLE 20 MG CAP PO SCH (08:21)
[2017-02-14] MEDS: ARIPiprazole 10 MG TAB PO SCH (08:21)
[2017-02-14] MEDS: NICOTINE 21MG/24HR 1 EA TRANSDERMAL TD SCH (08:21)
[2017-02-14] MEDS ORDERED: ARIPiprazole MONOHYDRATE 400 MG INJ (ABILIFY)(J0401) IM SCH (09:00)
[2017-02-14] MEDS: ACETAMINOPHEN TAB 650MG DOSE (2X325MG) PO PRN (15:48)
[2017-02-14 18:00] VITALS: BP 127/63
--- NOTE | 2017-02-14 19:59 | MHIPNPDOC ---
[facility] Progress Note Progress Note DATE OF SERVICE: 02/14/17 INTERVAL HISTORY: Medication Side effects: Reports no side effects from his Abilify Behavior/events: Has been much more engaging and less odd and bizarre. He is noted to be engaged in the social milieu. Group Attendance: He has been attending groups fairly frequently Psychiatric Symptoms: Describes that his symptoms are improving he is feeling more clear and more in control his faculties. He described that he was feeling less depressed and fatigued since the start of the Abilify. VITAL SIGNS: See below. NEW TEST RESULTS: See below CURRENT MEDICATIONS: See below. MENTAL STATUS EXAMINATION: General: Well dressed with good hygiene Speech: Spontaneous and fluid Thought processes: Linear and logical Thought content: Future orientated focused on discharge Abstract reasoning, and computation: Intact Description of associations: Intact Description of abnormal or psychotic thoughts:Denies any suicidal or homicidal ideation. Denies any auditory or visual hallucinations. Does not appear to be responding to internal stimuli. Does not appear to be endorsing any bizarre or paranoid ideation. Judgment: Fair Insight: Fair Orientation: Alert and orientated 3 Recent and remote memory: Intact Attention span and concentration: Intact Fund of knowledge: Adequate Mood: "Okay" Affect: Euthymic with a full range DIAGNOSES: 1. Unspecified bipolar disorder. ASSESSMENT: Improving MANAGEMENT PLAN: Medications: Continue Abilify oral patient is to get the long-acting Depo today. Psychotherapy: Encourage group attendance Social: Discharge planning underway possible discharge this week Misc: None Disposition: The patient will need of further inpatient stay to address disposition needs a medication titration. TIME SPENT: 15 minutes. Vital Signs Vital Signs Date Time Temp Pulse Resp B/P (MAP) Pulse Ox O2 Delivery O2 Flow Rate FiO2 02/14/17 18:00 97.7 86 16 127/63 (84) Current Medications Current Medications Acetaminophen (Tylenol Tab) 650 mg Q6HP PRN PO HEADACHE or DISCOMFORT Last administered on 02/14/17t 15:48; Start 02/05/17 at 02:00; Stop 03/07/17 at 01:59 Al Hydrox/Mg Hydrox/Simethicone (Mylanta) 30 ml Q4HP PRN PO HEARTBURN/ INDIGESTION; Start 02/05/17 at 02:00; Stop 03/07/17 at 01:59 Aripiprazole (AbiLIFY) 5 mg BID PO Last administered on 02/13/17 08:12; Start 02/12/17 at 21:00; Stop 02/13/17 at 17:56; Status DC Aripiprazole (AbiLIFY) 10 mg BID PO Last administered on 02/14/17 08:21; Start 02/13/17 at 21:00; Stop 02/14/17 at 11:19; Status DC Aripiprazole (AbiLIFY) 10 mg DAILY PO ; Start 02/15/17 at 09:00; Stop 03/15/17 at 20:59 Aripiprazole (Abilify Maintena) 400 mg Q30D IM Last administered on 02/14/17 15:45; Start 02/14/17 at 09:00; Stop 03/16/17 at 08:59 Citalopram Hydrobromide (CeleXA) 5 mg QAM PO Last administered on 02/05/17 18: 01; Start 02/05/17 at 09:00; Stop 02/06/17 at 13:16; Status DC Citalopram Hydrobromide (CeleXA) 10 mg DAILY PO Last administered on 02/14/17 08:21; Start 02/06/17 at 09:00; Stop 03/08/17 at 08:59 Divalproex Sodium (Depakote Er) 500 mg BID PO ; Start 02/14/17 at 21:00; Stop at 08:59 Divalproex Sodium (Depakote Er) 500 mg DAILY PO Last administered on 02/14/17 08:21; Start 02/05/17 at 09:00; Stop 02/14/17 at 12:30; Status DC Home Med (Med Rec Complete!) ASDIRECTED XX ; Start 02/05/17 at 02:45; Stop at 02:45; Status DC Lorazepam (Ativan) 1 mg BID IM Last administered on 02/07/17 11:21; Start at 09:00; Stop 02/07/17 at 23:44; Status DC Lorazepam (Ativan) 1 mg BID PO ; Start 02/07/17 at 09:00; Stop 02/07/17 at 10:35 ; Status DC Lorazepam (Ativan) 1 mg BID PO Last administered on 02/14/17 08:21; Start at 09:00; Stop 02/21/17 at 08:59 Magnesium Hydroxide (Milk Of Magnesia) 30 ml DAILYPRN PRN PO CONSTIPATION; Start 02/05/17 at 02:00; Stop 03/07/17 at 01:59 Nicotine (Nicoderm Cq 21mg) 1 patch DAILY TD Last administered on 02/14/17 08: 21; Start 02/05/17 at 09:00; Stop 03/07/17 at 08:59 Olanzapine (ZyPREXA) 5 mg QHS PO Last administered on 02/11/17 20:51; Start at 21:00; Stop 02/12/17 at 12:45; Status DC Omeprazole (PriLOSEC) 40 mg DAILY PO Last administered on 02/14/17 08:21; Start 02/05/17 at 09:00; Stop 03/07/17 at 08:59 Paliperidone (Invega) 1.5 mg QHS PO ; Start 02/05/17 at 21:00; Stop 02/05/17 at 21:00; Status DC Paliperidone (Invega) 3 mg QHS PO ; Start 02/05/17 at 21:00; Stop 02/08/17 at 10 :46; Status DC Trazodone HCl (Desyrel) 50 mg QHSP PRN PO INSOMNIA; Start 02/05/17 at 02:00; Stop 03/07/17 at 01:59 Allergies Coded Allergies: Aspirin (Verified Allergy, Unknown, 05/13/15) Clindamycin (Verified Allergy, Unknown, 05/13/15) Penicillins (Verified Allergy, Unknown, 12/27/12) Penicillins Cross Reactors (Verified Allergy, Unknown, 12/27/12) Sulfa Drugs (Verified Allergy, Unknown, 12/27/12) Sulfa Drugs Cross Reactors (Verified Allergy, Unknown, 12/27/12) GME ATTESTATION My preceptor for this patient encounter was physically present in the building during the encounter and was fully available. As needed, all aspects of the patient interview, examination, medical decision making process, and medical care plan development were reviewed and approved by the preceptor. Preceptor is aware and concurs with the plan as stated in the body of this note and will attest to such by his/her cosignature. AIDEN PALACIOS DO February 14, 2017 19:59
[2017-02-15 06:40] VITALS: BP 123/58
[2017-02-15] MEDS: ACETAMINOPHEN TAB 650MG DOSE (2X325MG) PO PRN (07:08)
[2017-02-15] MEDS: NICOTINE 21MG/24HR 1 EA TRANSDERMAL TD SCH (07:53)
[2017-02-15] MEDS: OMEPRAZOLE 20 MG CAP PO SCH (07:54)
[2017-02-15] MEDS: DIVALPROEX 500MG *ER* TAB PO SCH (07:54)
[2017-02-15] MEDS: LORazepam 1 MG TAB PO SCH (07:54)
[2017-02-15] MEDS: CitaloPRAM (CeleXA) 10 MG TABLET PO SCH (07:55)
[2017-02-15] MEDS ORDERED: ARIPiprazole 10 MG TAB PO SCH (09:00)
[2017-02-15] MEDS ORDERED: LORazepam 0.5 MG TAB PO PRN (09:30)
[2017-02-15] MEDS ORDERED: CELE10TA PO (09:43)
[2017-02-15] MEDS ORDERED: ABIL400I IM (09:43)
[2017-02-15] MEDS ORDERED: DEPA500T2 PO (09:43)
[2017-02-15] MEDS ORDERED: ATIV1TAB10 PO (09:43)
[2017-02-15] MEDS ORDERED: ARIP10TAB PO (09:43)
--- NOTE | 2017-02-15 12:38 | MHDSPDOC ---
[facility] Discharge Summary Discharge Summary DATE OF ADMISSION: February 05, 2017 at 01:56 DATE OF DISCHARGE: February 15 DISCHARGE DIAGNOSES: 1. Psychotic episode. 2. Bipolar disorder. REASON FOR ADMISSION: Patient was brought to the emergency room by his family because he was displaying bizarre behavior. He hadn't taken his medications for several months and he admitted lately that he hadn't asked his injection ( Abilify Maintenna) since January 2016. CONSULTANTS INVOLVED: None TREATMENT AND PROGRESS ON THE UNIT : And the patient was admitted to the unit he showed catatonic behavior, it was hard for him to move, he wouldn't get up from his bed, couldn't talk E or drink because he couldn't swallow due to catatonia. He received 2 doses of Ativan IM on the very first day at the unit because he couldn't swallow. That helped him improve and he was able to move and talk. Next day he was able to swallow and he was able to take his medications orally. He kept taking Ativan but also able started on Zyprexa 5 mg by mouth daily at bedtime because he reported that he and want to take Abilify or auditory done or Risperdal since he already has been on those medications before and he didn't like them. However, when he improved and he was able to have more logical thinking he accepted going back to Abilify and Zyprexa was discontinued. This was done because he was going to need injectables for long- term treatment and it was easier for him to have an injection per month than taking pills every day. Until last week he still displayed thought blocking But as the treatment progressed though symptoms decreased. His mood and affect became gradually brighter and he is bizarre and psychotic behavior disappeared. He received the first dose of Abilify and maintain him yesterday afternoon and he is scheduled to have monthly injections of the same medication. He received instructions to take orally Abilify for 14 days (10 mg) to comply with the protocol for treatment for injectable Abilify Maintena. HOSPITAL COURSE: As above DISCHARGE ASSESSMENT: The patient improvement has been very good. He socializes , he has a reactive affect, smiles frequently, does not respond to internal stimuli and denies abnormal perceptions like auditory or visual hallucinations or thought delusions. He is not longer catatonic, his mood and affect are bright. He is not a danger to himself or others. He is stable to be discharged and follow-up at the outpatient clinic. MENTAL STATUS EXAMINATION ON DISCHARGE: Patient is a 37-year old male, who is alert, dressed in personal clothes, cooperative, with good eye contact. Speech is and normal. Language skills are fair. Thought processes including: Intact. Thought content: Negative for anxious or depressive thoughts, negative for alcohol or thoughts or altered perceptions.. Abstract reasoning, and computation: Good. Description of associations: Not loose. Description of abnormal or psychotic thoughts: Not present at this time. Judgment: Improved. Insight: Improved. Orientation to oriented 3. Recent and remote memory: Fair. Attention span and concentration: Good Language: Fair. Fund of knowledge: Adequate. Mood: "I feel fine". Affect: Euthymic. MEDICATIONS ON DISCHARGE: -Abilify 10 mg by mouth daily for 14 days for psychosis/bipolar disorder. -Abilify Maintena 400 mg IM every 30 days for psychosis. Next dose is due on March 17, 2017 -Ativan 0.5 mg by mouth twice a day when necessary for anxiety. This is a tapering dose. No refills were given. -Citalopram 10 mg by mouth daily for depression -Depakote ER 500 mg by mouth twice a day for mood. PLAN/FOLLOWUP ARRANGEMENTS: Will continue receiving medications and psychotherapy as an outpatient. The amount of time spent in the coordination of care for this patient was approximately 20 minutes. Vital Signs/I&Os Vital Signs Date Time Temp Pulse Resp B/P (MAP) Pulse Ox O2 Delivery O2 Flow Rate FiO2 02/15/17 06:40 98.6 73 16 123/58 (79) Medications Scheduled Aripiprazole (Aripiprazole) 10 Mg Tab, 10 MG PO DAILY for psychosis, #14 Aripiprazole Monohydrate (Abilify Maintena) 400 Mg Inj, 400 MG IM Q30D for Psychosis, #1 Citalopram Hydrobromide (Celexa) 10 Mg Tab, 10 MG PO DAILY for MOOD, #10 Divalproex Sodium (Depakote ER) 500 Mg Tab, 500 MG PO BID for MOOD, #14 Scheduled PRN Lorazepam (Ativan) 0.5 Mg Tab, 0.5 MG PO BIDP PRN for ANXIETY, #7 Allergies Coded Allergies: Aspirin (Verified Allergy, Unknown, 05/13/15) Clindamycin (Verified Allergy, Unknown, 05/13/15) Penicillins (Verified Allergy, Unknown, 12/27/12) Penicillins Cross Reactors (Verified Allergy, Unknown, 12/27/12) Sulfa Drugs (Verified Allergy, Unknown, 12/27/12) Sulfa Drugs Cross Reactors (Verified Allergy, Unknown, 12/27/12) BRIANNA MOYA MD February 15, 2017 12:38
== END 2017-02-15 12:40 | disposition home or self-care (01) | DRG 751 ==
LOC: M ED 20:07 → M ED INP 02-05 01:56 → M PSY 02-05 04:49
PROVIDERS: ADMIT Psychiatry & Neurology Psychiatry; ATTEND Psychiatry & Neurology Psychiatry
DX: F23 Brief psychotic disorder (principal); D81.89 Other combined immunodeficiencies; D80.1 Nonfamilial hypogammaglobulinemia; Z91.14 Patient's other noncompliance with medication regimen; F31.9 Bipolar disorder, unspecified; F17.210 Nicotine dependence, cigarettes, uncomplicated; Z88.0 Allergy status to penicillin; Z88.2 Allergy status to sulfonamides; Z88.1 Allergy status to other antibiotic agents; Z88.6 Allergy status to analgesic agent; Z79.899 Other long term (current) drug therapy; Z86.14 Personal history of Methicillin resistant Staphylococcus aureus infection; Z98.52 Vasectomy status

== ENCOUNTER 2017-02-25 07:58 | Outpatient (CLI) | payer OTHER ==
[~2017-02-25] VITALS: Ht 170.2 cm; Wt 69.4 kg
[~2017-02-25 07:58] MED LIST changes: +ABIL400I IM; +ARIP10TAB PO; +ATIV1TAB10 PO; +CELE10TA PO; +DEPA500T2 PO; +DIVA500T9 PO; +RISP1TAB3 PO
[2017-02-25] MEDS ORDERED: FAMOTIDINE IV BAG 20 MG in APPROPRIATE DILUENT 1 EA IV ONE (08:15)
[2017-02-25] MEDS ORDERED: MEPERIDINE INJ 25 MG/ML VIAL (J2175) IV ONE (08:15)
[2017-02-25] MEDS ORDERED: ACETAMINOPHEN TAB 650MG DOSE (2X325MG) PO ONE (08:15)
[2017-02-25] MEDS ORDERED: diphenhydrAMINE INJ 50MG/ML VIAL (J1200) IV ONE (08:15)
[2017-02-25] MEDS ORDERED: dexameTHASONE 20 MG/5 ML VIAL (J1100) IV ONE (08:15)
[2017-02-25] MEDS ORDERED: IMMUNE GLOBULIN 10% 5GM 5 GM in APPROPRIATE DILUENT 1 EA IV ONE (08:30)
[2017-02-25] MEDS ORDERED: IMMUNE GLOBULIN 10% 20GM 200ML 20 GM in APPROPRIATE DILUENT 1 EA IV ONE (08:30)
== END 2017-02-25 12:45 | disposition home or self-care (01) ==
LOC: M INFU 07:58
PROVIDERS: ATTEND Internal Medicine Infectious Disease
DX: D83.9 Common variable immunodeficiency, unspecified (principal); Z88.0 Allergy status to penicillin; Z88.2 Allergy status to sulfonamides; Z79.899 Other long term (current) drug therapy
CPT/HCPCS: 96365; 96367; J1100; J1200; J1569; J2175

== ENCOUNTER → 2017-03-18 | Outpatient (REF) | payer OTHER | LOC: M SFHCPLAZ 12:42 | PROVIDERS: ATTEND Family Medicine | DX: Z11.3 Encounter for screening for infections with a predominantly sexual mode of transmission (principal); Z13.1 Encounter for screening for diabetes mellitus; Z11.4 Encounter for screening for human immunodeficiency virus [HIV] ==

== ENCOUNTER → 2017-03-24 | Outpatient (REF) | payer OTHER ==
[~2017-03-24] MED LIST changes: -RISP2TAB30 PO; +RISP2TAB32 PO; +TRAZ50TA11 PO; -TRAZ50TA4 PO
== END ==
LOC: M LABDRWAD 09:32
PROVIDERS: ATTEND Psychiatry & Neurology Psychiatry
DX: Z51.81 Encounter for therapeutic drug level monitoring (principal); Z79.899 Other long term (current) drug therapy

== ENCOUNTER → 2017-03-25 | Outpatient (REF) | payer OTHER | LOC: M SFHCPLAZ 15:21 | PROVIDERS: ATTEND Family Medicine | DX: Z11.3 Encounter for screening for infections with a predominantly sexual mode of transmission (principal); Z13.1 Encounter for screening for diabetes mellitus; Z11.4 Encounter for screening for human immunodeficiency virus [HIV] ==

== ENCOUNTER 2017-04-01 08:01 | Outpatient (CLI) | payer OTHER ==
[2017-04-01] MEDS ORDERED: MEPERIDINE INJ 25 MG/ML VIAL (J2175) IV ONE (08:15)
[2017-04-01] MEDS ORDERED: dexameTHASONE 4 MG/ML 1ML VIAL (J1100) IV ONE (08:15)
[2017-04-01] MEDS ORDERED: diphenhydrAMINE INJ 50MG/ML VIAL (J1200) IV ONE (08:15)
[2017-04-01] MEDS ORDERED: ACETAMINOPHEN TAB 650MG DOSE (2X325MG) PO ONE (08:15)
[2017-04-01] MEDS ORDERED: IMMUNE GLOBULIN 10% 5GM 5 GM in APPROPRIATE DILUENT 1 EA IV ONE (08:15)
[2017-04-01] MEDS ORDERED: FAMOTIDINE IV BAG 20 MG in APPROPRIATE DILUENT 1 EA IV ONE (08:15)
[2017-04-01] MEDS ORDERED: IMMUNE GLOBULIN 10% 20GM 200ML 20 GM in APPROPRIATE DILUENT 1 EA IV ONE (08:15)
== END 2017-04-01 12:30 | disposition home or self-care (01) ==
LOC: M INFU 08:01
PROVIDERS: ATTEND Internal Medicine Infectious Disease
DX: D83.9 Common variable immunodeficiency, unspecified (principal); Z79.899 Other long term (current) drug therapy; Z88.0 Allergy status to penicillin; Z88.2 Allergy status to sulfonamides; Z88.8 Allergy status to other drugs, medicaments and biological substances; Z88.1 Allergy status to other antibiotic agents
CPT/HCPCS: 96365; 96375; J1100; J1200; J1569; J2175

== ENCOUNTER 2017-04-29 11:48 | Outpatient (CLI) | payer OTHER ==
[2017-04-29] MEDS ORDERED: diphenhydrAMINE INJ 50MG/ML VIAL (J1200) IV ONE (12:00)
[2017-04-29] MEDS ORDERED: dexameTHASONE 20 MG/5 ML VIAL (J1100) IV ONE (12:00)
[2017-04-29] MEDS ORDERED: IMMUNE GLOBULIN 10% 20GM 200ML 20 GM in APPROPRIATE DILUENT 1 EA IV ONE (12:00)
[2017-04-29] MEDS ORDERED: MEPERIDINE INJ 25 MG/ML VIAL (J2175) IV ONE (12:00)
[2017-04-29] MEDS ORDERED: FAMOTIDINE INJ 20MG/2ML VIAL (S0028) IV ONE (12:00)
[2017-04-29] MEDS ORDERED: IMMUNE GLOBULIN 10% 5GM 5 GM in APPROPRIATE DILUENT 1 EA IV ONE (12:00)
[2017-04-29] MEDS ORDERED: ACETAMINOPHEN TAB 650MG DOSE (2X325MG) PO ONE (12:00)
[2017-04-29 12:46] LABS: BASO # 0.1 K/mm3 (0.0-0.2); BASO % 0.7 % (0.0-1.0); EOS # 0.3 K/mm3 (0.0-0.50); EOS % 3.2 % (0.0-3.0); LARGE UNSTAINED CELL # 0.1 K/mm3 (0.0-0.4); LARGE UNSTAINED CELL % 0.9 % (0.0-4.0); LYMPH # 1.8 K/mm3 (1.5-4.5); LYMPH % 19.7 % (24.0-44.0); MEAN CORPUSCULAR HEMOGLOBIN 30.7 pg (27.0-33.0); MEAN CORPUSCULAR HGB CONC 35.2 g/dl (32.0-36.5); MEAN CORPUSCULAR VOLUME 87.3 fl (80.0-96.0); MONO # 0.5 K/mm3 (0.0-0.8); MONO % 5.9 % (0.0-5.0); NEUTROPHILS # 6.1 K/mm3 (1.8-7.7); NEUTROPHILS % 69.8 % (36.0-66.0); PLATELET COUNT, AUTOMATED 249 k/mm3 (150-450); RED CELL DISTRIBUTION WIDTH 12.8 % (11.5-14.5); WHITE BLOOD COUNT 8.7 K/mm3 (4.0-10.0)
[2017-04-29 13:16] LABS: IMMUNOGLOBULIN M 22.4 MG/DL (40-230)
[2017-04-29 13:21] LABS: IMMUNOGLOBULIN A 18.6 MG/DL (70-400)
== END 2017-04-29 16:00 | disposition home or self-care (01) ==
LOC: M INFU 11:48
PROVIDERS: ATTEND Internal Medicine Infectious Disease
DX: D83.9 Common variable immunodeficiency, unspecified (principal); Z79.899 Other long term (current) drug therapy; Z88.0 Allergy status to penicillin; Z88.1 Allergy status to other antibiotic agents; Z88.2 Allergy status to sulfonamides; Z88.8 Allergy status to other drugs, medicaments and biological substances
CPT/HCPCS: 82784; 85025; 96365; 96366; 96367; 96368; 96375; J1100; J1200; J1569; J2175

== ENCOUNTER 2017-06-09 07:04 | Outpatient (CLI) | payer OTHER ==
[~2017-06-09 07:04] MED LIST changes: +ACETAMINOPHEN TAB 650MG DOSE (2X325MG) PO SCH; +FAMOTIDINE IV BAG 20 MG in APPROPRIATE DILUENT 1 EA IV ONE; +IMMUNE GLOBULIN 10% 20GM 200ML 20 GM in APPROPRIATE DILUENT 1 EA IV ONE; +IMMUNE GLOBULIN 10% 5GM 5 GM in APPROPRIATE DILUENT 1 EA IV ONE; +MEPERIDINE INJ 25 MG/ML VIAL (J2175) IV ONE; +dexameTHASONE 20 MG/5 ML VIAL (J1100) IV ONE; +diphenhydrAMINE 25 MG CAP PO SCH
[2017-06-09] MEDS ORDERED: diphenhydrAMINE INJ 50MG/ML VIAL (J1200) IV ONE (07:30)
== END 2017-06-09 11:30 | disposition home or self-care (01) ==
LOC: M INFU 07:04
PROVIDERS: ATTEND Internal Medicine Infectious Disease
DX: D83.9 Common variable immunodeficiency, unspecified (principal); Z79.899 Other long term (current) drug therapy; Z88.0 Allergy status to penicillin; Z88.2 Allergy status to sulfonamides; Z88.8 Allergy status to other drugs, medicaments and biological substances
CPT/HCPCS: 96365; 96366; 96367; 96375; J1100; J1200; J1569; J2175

== ENCOUNTER 2017-07-08 07:17 | Outpatient (CLI) | payer OTHER ==
[~2017-07-08 07:17] MED LIST changes: +ACETAMINOPHEN TAB 650MG DOSE (2X325MG) PO ONE; -ACETAMINOPHEN TAB 650MG DOSE (2X325MG) PO SCH; -diphenhydrAMINE 25 MG CAP PO SCH; +diphenhydrAMINE INJ 50MG/ML VIAL (J1200) IV ONE
== END 2017-07-08 11:25 | disposition home or self-care (01) ==
LOC: M INFU 07:17
PROVIDERS: ATTEND Internal Medicine Infectious Disease
DX: D83.9 Common variable immunodeficiency, unspecified (principal); F17.210 Nicotine dependence, cigarettes, uncomplicated; Z88.8 Allergy status to other drugs, medicaments and biological substances; Z88.1 Allergy status to other antibiotic agents; Z88.0 Allergy status to penicillin; Z88.2 Allergy status to sulfonamides; Z79.899 Other long term (current) drug therapy
CPT/HCPCS: 96365; 96366; 96367; 96375; J1100; J1200; J1569; J2175

== ENCOUNTER 2017-08-05 11:53 | Outpatient (CLI) | payer OTHER ==
[~2017-08-05] VITALS: Ht 170.2 cm; Wt 69.4 kg
[~2017-08-05 11:53] MED LIST changes: -ACETAMINOPHEN TAB 650MG DOSE (2X325MG) PO ONE; -FAMOTIDINE IV BAG 20 MG in APPROPRIATE DILUENT 1 EA IV ONE; -IMMUNE GLOBULIN 10% 20GM 200ML 20 GM in APPROPRIATE DILUENT 1 EA IV ONE; -IMMUNE GLOBULIN 10% 5GM 5 GM in APPROPRIATE DILUENT 1 EA IV ONE; -MEPERIDINE INJ 25 MG/ML VIAL (J2175) IV ONE; -dexameTHASONE 20 MG/5 ML VIAL (J1100) IV ONE; -diphenhydrAMINE INJ 50MG/ML VIAL (J1200) IV ONE
[2017-08-05 12:26] LABS: BASO # 0.1 10^3/uL (0.0-0.2); BASO % 0.8 % (0.0-1.0); EOS # 0.3 10^3/uL (0.0-0.50); EOS % 2.6 % (0.0-3.0); IMMATURE GRANULOCYTE % 0.3 % (0-0); LYMPH % 19.9 % (24.0-44.0); MEAN CORPUSCULAR HEMOGLOBIN 30.2 pg (27.0-33.0); MEAN CORPUSCULAR HGB CONC 35.4 g/dl (32.0-36.5); MEAN CORPUSCULAR VOLUME 85.4 fl (80.0-96.0); MONO # 0.9 10^3/uL (0.0-0.8); MONO % 8.8 % (0.0-5.0); NEUTROPHILS # 6.9 10^3/uL (1.8-7.7); NEUTROPHILS % 67.6 % (36.0-66.0); PLATELET COUNT, AUTOMATED 366 10^3/uL (150-450); RED CELL DISTRIBUTION WIDTH 12.2 % (11.5-14.5); WHITE BLOOD COUNT 10.3 10^3/uL (4.0-10.0)
[2017-08-05 12:59] LABS: IMMUNOGLOBULIN A 26.7 MG/DL (70-400); IMMUNOGLOBULIN M 28.4 MG/DL (40-230)
[2017-08-05] MEDS ORDERED: dexameTHASONE 4 MG/ML 1ML VIAL (J1100) IV ONE (13:00)
[2017-08-05] MEDS ORDERED: IMMUNE GLOBULIN 10% 5GM 5 GM in APPROPRIATE DILUENT 1 EA IV ONE (13:00)
[2017-08-05] MEDS ORDERED: ACETAMINOPHEN TAB 650MG DOSE (2X325MG) PO ONE (13:00)
[2017-08-05] MEDS ORDERED: MEPERIDINE INJ 25 MG/ML VIAL (J2175) IV ONE (13:00)
[2017-08-05] MEDS ORDERED: IMMUNE GLOBULIN 10% 20GM 200ML 20 GM in APPROPRIATE DILUENT 1 EA IV ONE (13:00)
[2017-08-05] MEDS ORDERED: diphenhydrAMINE INJ 50MG/ML VIAL (J1200) IV ONE (13:00)
[2017-08-05] MEDS ORDERED: FAMOTIDINE IV BAG 20 MG in APPROPRIATE DILUENT 1 EA IV ONE (13:00)
== END 2017-08-05 16:00 | disposition home or self-care (01) ==
LOC: M INFU 11:53
PROVIDERS: ATTEND Internal Medicine Infectious Disease
DX: D83.9 Common variable immunodeficiency, unspecified (principal); Z88.8 Allergy status to other drugs, medicaments and biological substances; Z88.0 Allergy status to penicillin; Z88.1 Allergy status to other antibiotic agents; Z88.2 Allergy status to sulfonamides; F17.210 Nicotine dependence, cigarettes, uncomplicated
CPT/HCPCS: 36415; 82784; 85025; 96365; 96366; 96375; J1100; J1200; J1569; J2175

== ENCOUNTER 2017-09-02 08:02 | Outpatient (CLI) | payer OTHER ==
[~2017-09-02] VITALS: Ht 170.2 cm; Wt 69.4 kg
[2017-09-02] MEDS ORDERED: MEPERIDINE INJ 25 MG/ML VIAL (J2175) IV ONE (08:45)
[2017-09-02] MEDS ORDERED: ACETAMINOPHEN TAB 650MG DOSE (2X325MG) PO ONE (08:45)
[2017-09-02] MEDS ORDERED: IMMUNE GLOBULIN 10% 5GM 5 GM in APPROPRIATE DILUENT 1 EA IV ONE (08:45)
[2017-09-02] MEDS ORDERED: diphenhydrAMINE INJ 50MG/ML VIAL (J1200) IV ONE (08:45)
[2017-09-02] MEDS ORDERED: IMMUNE GLOBULIN 10% 20GM 200ML 20 GM in APPROPRIATE DILUENT 1 EA IV ONE (08:45)
[2017-09-02] MEDS ORDERED: FAMOTIDINE IV BAG 20 MG in APPROPRIATE DILUENT 1 EA IV ONE (08:45)
[2017-09-02] MEDS ORDERED: dexameTHASONE 20 MG/5 ML VIAL (J1100) IV ONE (08:45)
== END 2017-09-02 12:10 | disposition home or self-care (01) ==
LOC: M INFU 08:02
PROVIDERS: ATTEND Internal Medicine Infectious Disease
DX: D83.9 Common variable immunodeficiency, unspecified (principal); F17.210 Nicotine dependence, cigarettes, uncomplicated; Z88.8 Allergy status to other drugs, medicaments and biological substances; Z88.1 Allergy status to other antibiotic agents; Z88.0 Allergy status to penicillin; Z88.2 Allergy status to sulfonamides; Z79.899 Other long term (current) drug therapy
CPT/HCPCS: 96365; 96366; 96375; J1100; J1200; J1569; J2175

== ENCOUNTER → 2017-09-23 | Outpatient (CLI) | payer OTHER ==
[2017-09-23 20:13] LABS: ALBUMIN 3.8 GM/DL (3.2-5.2); ALBUMIN/GLOBULIN RATIO 1.19 (1.00-1.93); ALKALINE PHOSPHATASE 82 U/L (45-117); ALT/SGPT 25 U/L (12-78); ANION GAP 4 MEQ/L (8-16); AST/SGOT 14 U/L (7-37); BILIRUBIN,TOTAL 0.4 MG/DL (0.2-1.0); BLOOD UREA NITROGEN 15 MG/DL (7-18); CALCIUM LEVEL 8.8 MG/DL (8.5-10.1); CARBON DIOXIDE LEVEL 32 MEQ/L (21-32); CHLORIDE LEVEL 104 MEQ/L (98-107); CREATININE FOR GFR 0.84 MG/DL (0.70-1.30); GLOMERULAR FILTRATION RATE > 60.0 (>60); GLUCOSE, FASTING 71 MG/DL (70-105); POTASSIUM SERUM 4.7 MEQ/L (3.5-5.1); SODIUM LEVEL 140 MEQ/L (136-145)
== END ==
LOC: M ADAMS 15:08
DX: F31.70 Bipolar disorder, currently in remission, most recent episode unspecified (principal); M51.36 Other intervertebral disc degeneration, lumbar region
CPT/HCPCS: 80053

== ENCOUNTER 2017-09-30 07:34 | Outpatient (CLI) | payer OTHER ==
[2017-09-30] MEDS: ACETAMINOPHEN TAB 650MG DOSE (2X325MG) PO (07:59)
[2017-09-30] MEDS: dexameTHASONE 20 MG/5 ML VIAL (J1100) IV (07:59)
[2017-09-30] MEDS: diphenhydrAMINE 25 MG CAP PO (07:59)
[2017-09-30] MEDS: FAMOTIDINE IV BAG 20 MG in APPROPRIATE DILUENT 1 EA IV (08:01)
[2017-09-30] MEDS: MEPERIDINE INJ 25 MG/ML VIAL (J2175) IV (08:01)
[2017-09-30] MEDS: diphenhydrAMINE INJ 50MG/ML VIAL (J1200) IV (08:30)
[2017-09-30] MEDS: IMMUNE GLOBULIN 10% 5GM 5 GM in APPROPRIATE DILUENT 1 EA IV (08:57)
[2017-09-30] MEDS: IMMUNE GLOBULIN 10% 20GM 200ML 20 GM in APPROPRIATE DILUENT 1 EA IV (08:58)
== END 2017-09-30 11:30 | disposition home or self-care (01) ==
LOC: M INFU 07:34
DX: D83.9 Common variable immunodeficiency, unspecified (principal); J45.909 Unspecified asthma, uncomplicated; M19.90 Unspecified osteoarthritis, unspecified site; M54.9 Dorsalgia, unspecified; F17.210 Nicotine dependence, cigarettes, uncomplicated; F40.240 Claustrophobia; Z79.899 Other long term (current) drug therapy; Z88.0 Allergy status to penicillin; Z88.2 Allergy status to sulfonamides; Z88.8 Allergy status to other drugs, medicaments and biological substances
CPT/HCPCS: 96375

== ENCOUNTER → 2017-10-22 | Outpatient (CLI) | payer OTHER ==
[2017-10-22 17:57] LABS: VALPROIC ACID (DEPAKOTE) 36.9 UG/ML (50.0-100.0)
== END ==
LOC: M WUC 14:48
DX: Z79.899 Other long term (current) drug therapy (principal)
CPT/HCPCS: 80164

== ENCOUNTER 2017-10-28 08:38 | Outpatient (CLI) | payer OTHER ==
[2017-10-28] MEDS: ACETAMINOPHEN TAB 650MG DOSE (2X325MG) PO (09:08)
[2017-10-28] MEDS: diphenhydrAMINE INJ 50MG/ML VIAL (J1200) IV (09:08)
[2017-10-28] MEDS: MEPERIDINE INJ 25 MG/ML VIAL (J2175) IV (09:08)
[2017-10-28] MEDS: dexameTHASONE 20 MG/5 ML VIAL (J1100) IV (09:08)
[2017-10-28] MEDS: FAMOTIDINE IV BAG 20 MG in APPROPRIATE DILUENT 1 EA IV (09:09)
[2017-10-28] MEDS: IMMUNE GLOBULIN 10% 5GM 5 GM in APPROPRIATE DILUENT 1 EA IV (10:09)
[2017-10-28] MEDS: IMMUNE GLOBULIN 10% 20GM 200ML 20 GM in APPROPRIATE DILUENT 1 EA IV (10:10)
== END 2017-10-28 12:45 | disposition home or self-care (01) ==
LOC: M INFU 08:38
DX: D83.9 Common variable immunodeficiency, unspecified (principal); J45.909 Unspecified asthma, uncomplicated; M12.9 Arthropathy, unspecified; M54.9 Dorsalgia, unspecified; F17.210 Nicotine dependence, cigarettes, uncomplicated; F40.240 Claustrophobia; Z79.899 Other long term (current) drug therapy; Z88.0 Allergy status to penicillin; Z88.2 Allergy status to sulfonamides; Z88.8 Allergy status to other drugs, medicaments and biological substances
CPT/HCPCS: J1200

== ENCOUNTER 2017-11-25 08:46 | Outpatient (CLI) | payer OTHER ==
[2017-11-25] MEDS: diphenhydrAMINE INJ 50MG/ML VIAL (J1200) IV (09:19)
[2017-11-25] MEDS: MEPERIDINE INJ 25 MG/ML VIAL (J2175) IV (09:20)
[2017-11-25] MEDS: FAMOTIDINE IV BAG 20 MG in APPROPRIATE DILUENT 1 EA IV (09:20)
[2017-11-25] MEDS: dexameTHASONE 20 MG/5 ML VIAL (J1100) IV (09:20)
[2017-11-25] MEDS: ACETAMINOPHEN TAB 650MG DOSE (2X325MG) PO (09:21)
[2017-11-25] MEDS: IMMUNE GLOBULIN 10% 20GM 200ML 20 GM in APPROPRIATE DILUENT 1 EA IV (10:21)
[2017-11-25] MEDS: IMMUNE GLOBULIN 10% 5GM 5 GM in APPROPRIATE DILUENT 1 EA IV (10:22)
== END 2017-11-25 13:00 | disposition home or self-care (01) ==
LOC: M INFU 08:46
DX: D83.9 Common variable immunodeficiency, unspecified (principal); M54.9 Dorsalgia, unspecified; M12.9 Arthropathy, unspecified; F17.210 Nicotine dependence, cigarettes, uncomplicated; F40.240 Claustrophobia; J45.909 Unspecified asthma, uncomplicated; Z79.899 Other long term (current) drug therapy; Z88.0 Allergy status to penicillin; Z88.8 Allergy status to other drugs, medicaments and biological substances
CPT/HCPCS: J1200

== ENCOUNTER → 2018-01-10 | Outpatient (REF) | payer OTHER ==
[2018-01-10 15:38] LABS: BASO # 0.1 10^3/uL (0.0-0.2); BASO % 0.9 % (0.0-1.0); EOS # 0.2 10^3/uL (0.0-0.50); EOS % 1.6 % (0.0-3.0); HEMATOCRIT 42.9 % (42.0-52.0); HEMOGLOBIN 14.7 g/dl (13.5-17.5); IMMATURE GRANULOCYTE % 0.4 % (0-3.0); LYMPH # 2.3 10^3/uL (1.5-4.5); LYMPH % 23.8 % (24.0-44.0); MEAN CORPUSCULAR HEMOGLOBIN 29.2 pg (27.0-33.0); MEAN CORPUSCULAR HGB CONC 34.3 g/dl (32.0-36.5); MEAN CORPUSCULAR VOLUME 85.3 fl (80.0-96.0); MONO # 0.8 10^3/uL (0.0-0.8); MONO % 8.4 % (0.0-5.0); NEUTROPHILS # 6.3 10^3/uL (1.8-7.7); NEUTROPHILS % 64.9 % (36.0-66.0); PLATELET COUNT, AUTOMATED 285 10^3/uL (150-450); RED BLOOD COUNT 5.03 10^6/uL (4.30-6.10); RED CELL DISTRIBUTION WIDTH 12.9 % (11.5-14.5); WHITE BLOOD COUNT 9.8 10^3/uL (4.0-10.0)
[2018-01-10 15:59] LABS: IMMUNOGLOBULIN A 30.8 MG/DL (70-400); IMMUNOGLOBULIN G 933 MG/DL (681-1648); IMMUNOGLOBULIN M 30.6 MG/DL (40-230)
== END ==
LOC: M SFHCPLAZ 11:52
DX: D83.9 Common variable immunodeficiency, unspecified (principal)
CPT/HCPCS: 82784

== ENCOUNTER → 2018-01-10 | Outpatient (REF) | payer OTHER | LOC: M SFHCPLAZ 15:24 | DX: R09.82 Postnasal drip (principal) ==

== ENCOUNTER 2018-01-17 16:07 | Emergency (ER) | payer OTHER ==
[2018-01-17] MEDS: LIDOCAINE 2% MDV 20 ML VIAL SC (17:00)
[2018-01-17] MEDS: MORPHINE 4 MG/ML 1ML VIAL/SYRINGE (J2270) IV (17:12)
== END 2018-01-17 18:53 | disposition home or self-care (01) ==
LOC: M ED 16:07
DX: S40.812A Abrasion of left upper arm, initial encounter (principal); S50.312A Abrasion of left elbow, initial encounter; S40.212A Abrasion of left shoulder, initial encounter; S51.002A Unspecified open wound of left elbow, initial encounter; S93.122A Dislocation of metatarsophalangeal joint of left great toe, initial encounter; V28.4XXA Motorcycle driver injured in noncollision transport accident in traffic accident, initial encounter; Y92.410 Unspecified street and highway as the place of occurrence of the external cause; Y93.89 Activity, other specified; Y99.9 Unspecified external cause status; R51 Headache; M54.9 Dorsalgia, unspecified; F31.9 Bipolar disorder, unspecified; F32.9 Major depressive disorder, single episode, unspecified; F41.9 Anxiety disorder, unspecified; Z87.891 Personal history of nicotine dependence; Z88.6 Allergy status to analgesic agent; Z88.0 Allergy status to penicillin; Z88.2 Allergy status to sulfonamides; Z88.1 Allergy status to other antibiotic agents
CPT/HCPCS: J2270

== ENCOUNTER 2018-01-26 07:06 | Outpatient (CLI) | payer OTHER ==
[2018-01-26] MEDS: FAMOTIDINE IV BAG 20 MG in APPROPRIATE DILUENT 1 EA IV (07:45)
[2018-01-26] MEDS: dexameTHASONE 20 MG/5 ML VIAL (J1100) IV (07:45)
[2018-01-26] MEDS: ACETAMINOPHEN TAB 650MG DOSE (2X325MG) PO (07:45)
[2018-01-26] MEDS: diphenhydrAMINE INJ 50MG/ML VIAL (J1200) IV (07:46)
[2018-01-26] MEDS: MEPERIDINE INJ 25 MG/ML VIAL (J2175) IV (07:46)
[2018-01-26] MEDS: IMMUNE GLOBULIN 10% 5GM 5 GM in APPROPRIATE DILUENT 1 EA IV (08:43)
[2018-01-26] MEDS: IMMUNE GLOBULIN 10% 20GM 200ML 20 GM in APPROPRIATE DILUENT 1 EA IV (08:44)
== END 2018-01-26 11:35 | disposition home or self-care (01) ==
LOC: M INFU 07:06
DX: D83.9 Common variable immunodeficiency, unspecified (principal); J45.909 Unspecified asthma, uncomplicated; M54.9 Dorsalgia, unspecified; M12.9 Arthropathy, unspecified; F40.240 Claustrophobia; F17.210 Nicotine dependence, cigarettes, uncomplicated; Z79.899 Other long term (current) drug therapy; Z88.0 Allergy status to penicillin; Z88.8 Allergy status to other drugs, medicaments and biological substances
CPT/HCPCS: J1200

== ENCOUNTER 2018-03-31 06:49 | Outpatient (CLI) | payer OTHER ==
[2018-03-31] MEDS: FAMOTIDINE IV BAG 20 MG in APPROPRIATE DILUENT 1 EA IV (07:27)
[2018-03-31] MEDS: ACETAMINOPHEN TAB 650MG DOSE (2X325MG) PO (07:28)
[2018-03-31] MEDS: MEPERIDINE INJ 25 MG/ML VIAL (J2175) IV (07:54)
[2018-03-31] MEDS: dexameTHASONE 20 MG/5 ML VIAL (J1100) IV (07:55)
[2018-03-31] MEDS: diphenhydrAMINE INJ 50MG/ML VIAL (J1200) IV (07:55)
[2018-03-31] MEDS: IMMUNE GLOBULIN 10% 5GM 5 GM in APPROPRIATE DILUENT 1 EA IV (07:56)
[2018-03-31] MEDS: IMMUNE GLOBULIN 10% 20GM 200ML 20 GM in APPROPRIATE DILUENT 1 EA IV (07:56)
== END 2018-03-31 11:00 | disposition home or self-care (01) ==
LOC: M INFU 06:49
DX: D83.9 Common variable immunodeficiency, unspecified (principal); Z88.1 Allergy status to other antibiotic agents; Z88.8 Allergy status to other drugs, medicaments and biological substances; Z88.0 Allergy status to penicillin; Z88.2 Allergy status to sulfonamides; Z79.899 Other long term (current) drug therapy
CPT/HCPCS: J1200

== ENCOUNTER → 2018-04-26 | Outpatient (CLI) | payer OTHER | LOC: M RAD 09:01 | DX: J32.4 Chronic pansinusitis (principal) | CPT/HCPCS: 70486 ==

== ENCOUNTER 2018-04-28 09:09 | Outpatient (CLI) | payer OTHER ==
[2018-04-28] MEDS: FAMOTIDINE/NS 20 MG/50 ML BAG (S0028) IV (09:33)
[2018-04-28] MEDS: ACETAMINOPHEN TAB 650MG DOSE (2X325MG) PO (09:33)
[2018-04-28] MEDS: MEPERIDINE INJ 25 MG/ML VIAL (J2175) IV (10:00)
[2018-04-28] MEDS: dexameTHASONE 20 MG/5 ML VIAL (J1100) IV (10:01)
[2018-04-28] MEDS: diphenhydrAMINE INJ 50MG/ML VIAL (J1200) IV (10:01)
[2018-04-28] MEDS: IMMUNE GLOBULIN 10% 20GM 200ML 20 GM in APPROPRIATE DILUENT 1 EA IV (10:53)
[2018-04-28] MEDS: IMMUNE GLOBULIN 10% 5GM 5 GM in APPROPRIATE DILUENT 1 EA IV (10:54)
== END 2018-04-28 13:30 | disposition home or self-care (01) ==
LOC: M INFU 09:09
DX: D83.9 Common variable immunodeficiency, unspecified (principal); Z79.899 Other long term (current) drug therapy; Z88.8 Allergy status to other drugs, medicaments and biological substances; Z88.1 Allergy status to other antibiotic agents; Z88.0 Allergy status to penicillin; Z88.2 Allergy status to sulfonamides
CPT/HCPCS: J1200

== ENCOUNTER 2018-05-31 10:58 | Day surgery (SDC) | payer OTHER ==
[~2018-05-31 10:58] MED LIST changes: -ABIL400I IM; -ARIP10TAB PO; -ATIV1TAB10 PO; -BACTROBAN TOP; -CELE10TA PO; -DEPA1TAB3 PO; -DEPA500T2 PO; -DILA2TAB OR; -DIVA500T9 PO; -HEPARIN IV; -INVE1.5T PO; -INVE156I IM; +LR 1,000 ML IV; +MIDAZOLAM INJ 2 MG/2 ML VIAL (J2250) As Ordered; -NICO21DI4 TD; -NICODERM CQ TOP; -No Historical Meds; -No home meds; -PERC7.5T8 OR; -PRIV5INJ IV; -PROZ20CA11 PO; -RISP1TAB3 PO; -RISP2TAB32 PO; -SALINE FLUSHES IV; -TRAM50TA2 OR; -TRAZ50TA11 PO; -TRIAMCINOLONE TOP; -VANCOMYCIN IV; -[UNRECOGNIZED DRUG - OTHER] PO; -anexsia; -anexsia PO; +fentaNYL 250 MCG/5 ML INJECTION (J3010) As Ordered
[2018-05-31 11:37] LABS: HEMATOCRIT 44.5 % (42.0-52.0); HEMOGLOBIN 15.7 g/dl (13.5-17.5); MEAN CORPUSCULAR HEMOGLOBIN 29.5 pg (27.0-33.0); MEAN CORPUSCULAR HGB CONC 35.3 g/dl (32.0-36.5); MEAN CORPUSCULAR VOLUME 83.5 fl (80.0-96.0); PLATELET COUNT, AUTOMATED 264 10^3/uL (150-450); RED BLOOD COUNT 5.33 10^6/uL (4.30-6.10); RED CELL DISTRIBUTION WIDTH 13.2 % (11.5-14.5)
[2018-05-31 12:06] LABS: ANION GAP 8 MEQ/L (8-16); BLOOD UREA NITROGEN 10 MG/DL (7-18); CALCIUM LEVEL 9.4 MG/DL (8.5-10.1); CARBON DIOXIDE LEVEL 24 MEQ/L (21-32); CHLORIDE LEVEL 111 MEQ/L (98-107); GLOMERULAR FILTRATION RATE > 60.0 (>60); GLUCOSE, FASTING 78 MG/DL (70-100); POTASSIUM SERUM 4.3 MEQ/L (3.5-5.1); SODIUM LEVEL 143 MEQ/L (136-145)
[2018-05-31] MEDS ORDERED: LIDOCAINE W/EPINEPHRINE 1% 20ML VIAL As Ordered (12:11)
[2018-05-31] MEDS: metroNIDAZOLE 500 MG in APPROPRIATE DILUENT 1 EA IV (12:25)
[2018-05-31] MEDS ORDERED: LIDOCAINE 2% INJ 100 MG/5 ML SDV (FOR ANES.) As Ordered (12:54)
[2018-05-31] MEDS ORDERED: ONDANSETRON 4MG/2ML VIAL (J2405) As Ordered (12:54)
[2018-05-31] MEDS ORDERED: ROCURONIUM BROMIDE 50 MG/5 ML VIAL As Ordered ×2 (12:54)
[2018-05-31] MEDS ORDERED: PROPOFOL 200 MG/20 ML VIAL As Ordered (12:54)
[2018-05-31] MEDS ORDERED: dexameTHASONE 4 MG/ML 1ML VIAL (J1100) As Ordered (12:54)
[2018-05-31] MEDS: EPINEPHrine 1MG/ML INJ 30ML MD-VIAL As Ordered (13:04)
[2018-05-31] MEDS: METHYLENE BLUE 0.5% (5MG/ML) 10 ML AMP (PROVAYBLUE)(Q9968 PER 1MG) As Ordered (13:05)
[2018-05-31] MEDS ORDERED: fentaNYL 100 MCG/2 ML INJECTION (J3010) As Ordered (13:05)
[2018-05-31] MEDS ORDERED: SUGAMMADEX SODIUM 500 MG/5 ML VIAL (BRIDION) As Ordered (13:05)
[2018-05-31] MEDS ORDERED: ESMOLOL INJ 100MG/10ML VIAL As Ordered (13:07)
[2018-05-31] MEDS ORDERED: fentaNYL 100 MCG/2 ML INJECTION (J3010) IV (14:45)
[2018-05-31] MEDS ORDERED: LR 1,000 ML IV ×2 (14:45)
[2018-05-31] MEDS ORDERED: ONDANSETRON 4MG/2ML VIAL (J2405) IV (14:45)
[2018-05-31] MEDS ORDERED: ACETAMINOPH W/CODEINE #3 TAB UD PO (14:45)
[2018-05-31] MEDS: NORCO, ANEXSIA 5/325MG TABLET (HYDROcodone/ACETAMINOPHEN) PO ×2 (14:55→15:29)
== END 2018-05-31 16:38 | disposition home or self-care (01) ==
LOC: M SDC 10:58
DX: J32.4 Chronic pansinusitis (principal); K02.9 Dental caries, unspecified; F17.211 Nicotine dependence, cigarettes, in remission; K21.9 Gastro-esophageal reflux disease without esophagitis; M54.9 Dorsalgia, unspecified; D83.9 Common variable immunodeficiency, unspecified; R51 Headache; R56.9 Unspecified convulsions; Z88.0 Allergy status to penicillin; Z88.1 Allergy status to other antibiotic agents; Z88.2 Allergy status to sulfonamides; Z88.6 Allergy status to analgesic agent; Z79.899 Other long term (current) drug therapy
CPT/HCPCS: 30520

== ENCOUNTER 2018-06-30 06:58 | Outpatient (CLI) | payer OTHER ==
[2018-06-30] MEDS: FAMOTIDINE/NS 20 MG/50 ML BAG (S0028) IV (07:46)
[2018-06-30] MEDS: diphenhydrAMINE INJ 50MG/ML VIAL (J1200) IV (07:47)
[2018-06-30] MEDS: dexameTHASONE 20 MG/5 ML VIAL (J1100) IV (07:47)
[2018-06-30] MEDS: MEPERIDINE INJ 25 MG/ML VIAL (J2175) IV (07:47)
[2018-06-30] MEDS: ACETAMINOPHEN TAB 650MG DOSE (2X325MG) PO (07:54)
[2018-06-30] MEDS: IMMUNE GLOBULIN 10% 5GM 5 GM in APPROPRIATE DILUENT 1 EA IV (09:05)
[2018-06-30] MEDS: IMMUNE GLOBULIN 10% 20GM 200ML 20 GM in APPROPRIATE DILUENT 1 EA IV (09:05)
== END 2018-06-30 11:45 | disposition home or self-care (01) ==
LOC: M INFU 06:58
DX: D83.9 Common variable immunodeficiency, unspecified (principal); Z88.8 Allergy status to other drugs, medicaments and biological substances; Z88.1 Allergy status to other antibiotic agents; Z88.0 Allergy status to penicillin; Z88.2 Allergy status to sulfonamides
CPT/HCPCS: J1200

== ENCOUNTER 2018-07-06 19:41 | Emergency (ER) | payer OTHER ==
[2018-07-06] MEDS: DOXYCYCLINE HYCLATE 100 MG TAB PO (20:29)
[2018-07-06 20:50] LABS: BASO # 0.1 10^3/uL (0.0-0.2); BASO % 0.8 % (0.0-1.0); EOS # 0.3 10^3/uL (0.0-0.50); EOS % 3.7 % (0.0-3.0); HEMATOCRIT 46.9 % (42.0-52.0); HEMOGLOBIN 16.3 g/dl (13.5-17.5); IMMATURE GRANULOCYTE % 0.3 % (0-3.0); LYMPH # 2.4 10^3/uL (1.5-4.5); LYMPH % 30.9 % (24.0-44.0); MEAN CORPUSCULAR HEMOGLOBIN 30.1 pg (27.0-33.0); MEAN CORPUSCULAR HGB CONC 34.8 g/dl (32.0-36.5); MEAN CORPUSCULAR VOLUME 86.7 fl (80.0-96.0); MONO # 0.5 10^3/uL (0.0-0.8); MONO % 7.1 % (0.0-5.0); NEUTROPHILS # 4.4 10^3/uL (1.8-7.7); NEUTROPHILS % 57.2 % (36.0-66.0); PLATELET COUNT, AUTOMATED 257 10^3/uL (150-450); RED BLOOD COUNT 5.41 10^6/uL (4.30-6.10); RED CELL DISTRIBUTION WIDTH 13.9 % (11.5-14.5); WHITE BLOOD COUNT 7.6 10^3/uL (4.0-10.0)
[2018-07-06 21:06] LABS: C REACTIVE PROTEIN QUANTITATIV < 0.30 MG/DL (0.00-0.30)
[2018-07-06 21:17] LABS: ERYTHROCYTE SEDIMENTATION RATE 3 mm/hr (0-15)
[2018-07-09 00:06] LABS: Lyme Disease IgG/IgM Antibodie <0.91 ISR (0.00-0.90); Lyme Disease IgM Ab Quantitati <0.80 index (0.00-0.79)
== END 2018-07-06 20:47 | disposition home or self-care (01) ==
LOC: M ED 19:41
DX: S30.861A Insect bite (nonvenomous) of abdominal wall, initial encounter (principal); W57.XXXA Bitten or stung by nonvenomous insect and other nonvenomous arthropods, initial encounter; Y92.89 Other specified places as the place of occurrence of the external cause; Z79.899 Other long term (current) drug therapy; Z88.0 Allergy status to penicillin; Z88.2 Allergy status to sulfonamides; Z88.8 Allergy status to other drugs, medicaments and biological substances; F17.210 Nicotine dependence, cigarettes, uncomplicated
CPT/HCPCS: 86140

== ENCOUNTER 2018-09-01 06:55 | Outpatient (CLI) | payer OTHER ==
[2018-09-01] MEDS: FAMOTIDINE IV BAG 20 MG in APPROPRIATE DILUENT 1 EA IV (07:39)
[2018-09-01] MEDS: ACETAMINOPHEN TAB 650MG DOSE (2X325MG) PO (07:39)
[2018-09-01] MEDS: diphenhydrAMINE INJ 50MG/ML VIAL (J1200) IV (07:56)
[2018-09-01] MEDS: dexameTHASONE 20 MG/5 ML VIAL (J1100) IV (07:56)
[2018-09-01] MEDS: MEPERIDINE INJ 25 MG/ML VIAL (J2175) IV (08:00)
[2018-09-01] MEDS: IMMUNE GLOBULIN 10% 20 GM in APPROPRIATE DILUENT 1 EA IV (09:17)
[2018-09-01] MEDS: IMMUNE GLOBULIN 10% 5 GM in APPROPRIATE DILUENT 1 EA IV (09:18)
== END 2018-09-01 11:30 | disposition home or self-care (01) ==
LOC: M INFU 06:55
DX: D83.9 Common variable immunodeficiency, unspecified (principal); Z88.2 Allergy status to sulfonamides; Z88.1 Allergy status to other antibiotic agents; Z88.0 Allergy status to penicillin
CPT/HCPCS: J1459

== ENCOUNTER 2018-09-29 07:24 | Outpatient (CLI) | payer OTHER ==
[2018-09-29] VITALS (7 sets, daily range): BP systolic 112–130; BP diastolic 59–77
[~2018-09-29] VITALS: Ht 170.2 cm; Wt 69.4 kg
[~2018-09-29 07:24] MED LIST changes: +ABIL400I IM; +ACET500T15 PO; +ARIP10TAB PO; +ATIV1TAB10 PO; +BACTROBAN TOP; +BENA25CA4 IV; +CELE10TA PO; +DECA4TAB IV; +DEPA1TAB3 PO; +DEPA500T2 PO; +DILA2TAB OR; +DIVA500T9 PO; +DOXY100C37 PO; +FLUTISP; +HEPARIN IV; +INVE1.5T PO; +INVE156I IM; +IVIG IV; +KEFL500C17 PO; -LR 1,000 ML IV; -MIDAZOLAM INJ 2 MG/2 ML VIAL (J2250) As Ordered; +MULT1TAB10 PO; +NICO21DI4 TD; +NICODERM CQ TOP; +No Historical Meds; +No home meds; +PEPC1TAB2 IV; +PERC5TAB12 PO; +PERC7.5T8 OR; +PRIV5INJ IV; +PROZ20CA11 PO; +RISP1TAB3 PO; +RISP2TAB32 PO; +SALINE FLUSHES IV; +TRAM50TA2 OR; +TRAZ-160 PO; +TRIAMCINOLONE TOP; +VANCOMYCIN IV; +VITATAB11 PO; +[UNRECOGNIZED DRUG - CODE] IV; +[UNRECOGNIZED DRUG - OTHER] PO; +anexsia; +anexsia PO; -fentaNYL 250 MCG/5 ML INJECTION (J3010) As Ordered; +garlic
[2018-09-29] MEDS ORDERED: IMMUNE GLOBULIN 10% 20 GM in APPROPRIATE DILUENT 1 EA IV ONE (08:00)
[2018-09-29] MEDS ORDERED: IMMUNE GLOBULIN 10% 5 GM in APPROPRIATE DILUENT 1 EA IV ONE (08:00)
[2018-09-29] MEDS ORDERED: dexameTHASONE 20 MG/5 ML VIAL (J1100) IV ONE (08:15)
[2018-09-29] MEDS ORDERED: MEPERIDINE INJ 25 MG/ML VIAL (J2175) As Ordered ONE (08:17)
[2018-09-29] MEDS ORDERED: dexameTHASONE 20 MG/5 ML VIAL (J1100) As Ordered ONE (08:17)
[2018-09-29] MEDS ORDERED: FAMOTIDINE/NS 20 MG/50 ML BAG (S0028) As Ordered ONE (08:18)
[2018-09-29 08:19] LABS: BASO # 0.1 10^3/uL (0.0-0.2); BASO % 0.9 % (0.0-1.0); EOS # 0.2 10^3/uL (0.0-0.50); EOS % 2.7 % (0.0-3.0); HEMATOCRIT 44.3 % (42.0-52.0); HEMOGLOBIN 15.3 g/dl (13.5-17.5); LYMPH % 21.8 % (24.0-44.0); MEAN CORPUSCULAR HEMOGLOBIN 29.3 pg (27.0-33.0); MEAN CORPUSCULAR HGB CONC 34.5 g/dl (32.0-36.5); MEAN CORPUSCULAR VOLUME 84.7 fl (80.0-96.0); MONO # 0.8 10^3/uL (0.0-0.8); NEUTROPHILS # 5.9 10^3/uL (1.8-7.7); NEUTROPHILS % 65.4 % (36.0-66.0); PLATELET COUNT, AUTOMATED 278 10^3/uL (150-450); RED BLOOD COUNT 5.23 10^6/uL (4.30-6.10)
[2018-09-29] MEDS ORDERED: FAMOTIDINE IV BAG 20 MG in APPROPRIATE DILUENT 1 EA IV ONE (08:30)
[2018-09-29] MEDS ORDERED: MEPERIDINE INJ 25 MG/ML VIAL (J2175) IV ONE (08:30)
[2018-09-29 10:02] LABS: IMMUNOGLOBULIN A 19.1 MG/DL (70-400); IMMUNOGLOBULIN E 4.2 IU/ML (<100); IMMUNOGLOBULIN M 22.8 MG/DL (40-230)
[2018-10-06 00:06] LABS: ANTI TETANUS ANTIBODY 2.77 IU/mL (<0.10); IMMUNOGLOBULIN D <1.34 mg/dL (<14.11); STREP PNEUMO TYPE 1 1.1 ug/mL (>1.3); STREP PNEUMO TYPE 12F 0.2 ug/mL (>1.3); STREP PNEUMO TYPE 14 2.8 ug/mL (>1.3); STREP PNEUMO TYPE 18C 0.8 ug/mL (>1.3); STREP PNEUMO TYPE 19A 2.1 ug/mL (>1.3); STREP PNEUMO TYPE 19F 2.1 ug/mL (>1.3); STREP PNEUMO TYPE 23F 0.5 ug/mL (>1.3); STREP PNEUMO TYPE 3 3.7 ug/mL (>1.3); STREP PNEUMO TYPE 4 0.2 ug/mL (>1.3); STREP PNEUMO TYPE 6B 0.8 ug/mL (>1.3); STREP PNEUMO TYPE 7F 1.3 ug/mL (>1.3); STREP PNEUMO TYPE 8 1.6 ug/mL (>1.3); STREP PNEUMO TYPE 9N 0.5 ug/mL (>1.3); STREP PNEUMO TYPE 9V 0.5 ug/mL (>1.3)
== END 2018-09-29 12:30 | disposition home or self-care (01) ==
LOC: M INFU 07:24
PROVIDERS: ATTEND Internal Medicine Infectious Disease
DX: D83.9 Common variable immunodeficiency, unspecified (principal); Z88.0 Allergy status to penicillin; Z88.2 Allergy status to sulfonamides; Z88.6 Allergy status to analgesic agent
CPT/HCPCS: 36415; 82784; 82785; 85025; 86609; 86762; 96365; 96366; 96367; J1100; J1459; J2175

== ENCOUNTER → 2019-03-11 | Outpatient (CLI) | payer OTHER ==
[~2019-03-11] MED LIST changes: -ARIP10TAB PO; +ARIP1TAB PO; -PEPC1TAB2 IV; +PEPC40TA12 IV; -TRAZ-160 PO; +TRAZ-252 PO
[2019-03-11 18:13] LABS: BASO # 0.1 10^3/uL (0.0-0.2); BASO % 1.2 % (0.0-1.0); EOS # 0.2 10^3/uL (0.0-0.50); EOS % 2.3 % (0.0-3.0); HEMATOCRIT 45.8 % (42.0-52.0); HEMOGLOBIN 15.9 g/dl (13.5-17.5); LYMPH % 29.2 % (24.0-44.0); MEAN CORPUSCULAR HEMOGLOBIN 29.4 pg (27.0-33.0); MEAN CORPUSCULAR HGB CONC 34.7 g/dl (32.0-36.5); MEAN CORPUSCULAR VOLUME 84.7 fl (80.0-96.0); MONO # 0.6 10^3/uL (0.0-0.8); MONO % 8.4 % (0.0-5.0); NEUTROPHILS % 58.6 % (36.0-66.0); PLATELET COUNT, AUTOMATED 260 10^3/uL (150-450); RED BLOOD COUNT 5.41 10^6/uL (4.30-6.10); WHITE BLOOD COUNT 6.8 10^3/uL (4.0-10.0)
[2019-03-11 19:57] LABS: IMMUNOGLOBULIN A 21.8 MG/DL (70-400); IMMUNOGLOBULIN E 45.7 IU/ML (<100); IMMUNOGLOBULIN G 1160 MG/DL (681-1648); IMMUNOGLOBULIN M 27.9 MG/DL (40-230)
[2019-03-12 08:45] LABS: RUBELLA IgG QUALITATIVE IMMUNE (IMMUNE)
== END ==
LOC: M WUC 15:36
PROVIDERS: ATTEND Allergy & Immunology Allergy
DX: D83.9 Common variable immunodeficiency, unspecified (principal)

== ENCOUNTER → 2019-10-23 | Outpatient (CLI) | payer MEDICAID ==
[2019-10-23 17:57] LABS: IMMUNOGLOBULIN A 19.6 MG/DL (70-400)
[2019-10-23 18:12] LABS: BASO # 0.1 10^3/uL (0.0-0.2); BASO % 1.4 % (0.0-1.0); EOS # 0.2 10^3/uL (0.0-0.5); EOS % 1.9 % (0.0-3.0); HEMATOCRIT 45.7 % (42.0-52.0); HEMOGLOBIN 15.3 g/dl (13.5-17.5); LYMPH # 2.1 10^3/uL (1.5-5.0); LYMPH % 26.7 % (24.0-44.0); MEAN CORPUSCULAR HEMOGLOBIN 29.4 pg (27.0-33.0); MEAN CORPUSCULAR HGB CONC 33.5 g/dl (32.0-36.5); MEAN CORPUSCULAR VOLUME 87.7 fl (80.0-96.0); MONO # 0.7 10^3/uL (0.0-0.8); MONO % 8.4 % (0.0-5.0); NEUTROPHILS # 4.9 10^3/uL (1.5-8.5); NEUTROPHILS % 61.3 % (36.0-66.0); PLATELET COUNT, AUTOMATED 243 10^3/uL (150-450); RED BLOOD COUNT 5.21 10^6/uL (4.30-6.10)
== END ==
LOC: M WUC 11:10
PROVIDERS: ATTEND Allergy & Immunology Allergy
DX: D83.9 Common variable immunodeficiency, unspecified (principal)

== ENCOUNTER → 2020-02-21 | Outpatient (CLI) | payer MEDICAID ==
[2020-02-21 18:25] LABS: BASO # 0.1 10^3/uL (0.0-0.2); EOS # 0.2 10^3/uL (0.0-0.5); HEMATOCRIT 44.9 % (42.0-52.0); HEMOGLOBIN 15.8 g/dl (13.5-17.5); LYMPH # 2.2 10^3/uL (1.5-5.0); LYMPH % 20.9 % (24.0-44.0); MEAN CORPUSCULAR HEMOGLOBIN 30.8 pg (27.0-33.0); MEAN CORPUSCULAR HGB CONC 35.2 g/dl (32.0-36.5); MEAN CORPUSCULAR VOLUME 87.5 fl (80.0-96.0); MONO % 9.3 % (0.0-5.0); NEUTROPHILS # 6.8 10^3/uL (1.5-8.5); NEUTROPHILS % 66.4 % (36.0-66.0); PLATELET COUNT, AUTOMATED 241 10^3/uL (150-450); RED BLOOD COUNT 5.13 10^6/uL (4.30-6.10); WHITE BLOOD COUNT 10.3 10^3/uL (4.0-10.0)
[2020-02-21 19:10] LABS: ALBUMIN 3.7 GM/DL (3.2-5.2); ALT/SGPT 27 U/L (12-78); BILIRUBIN,TOTAL 0.6 MG/DL (0.2-1.0); BLOOD UREA NITROGEN 8 MG/DL (7-18); CARBON DIOXIDE LEVEL 26 MEQ/L (21-32); CHLORIDE LEVEL 105 MEQ/L (98-107); GLOMERULAR FILTRATION RATE > 60.0 (>60); GLUCOSE, FASTING 85 MG/DL (70-100); IMMUNOGLOBULIN G 984 MG/DL (681-1648); POTASSIUM SERUM 4.1 MEQ/L (3.5-5.1); SODIUM LEVEL 140 MEQ/L (136-145); TOTAL PROTEIN 6.9 GM/DL (6.4-8.2)
[2020-02-21 19:13] LABS: IMMUNOGLOBULIN A 23.3 MG/DL (70-400)
== END ==
LOC: M WUC 14:01
PROVIDERS: ATTEND Nurse Practitioner Family
DX: D83.9 Common variable immunodeficiency, unspecified (principal)

== ENCOUNTER → 2020-10-11 | Outpatient (CLI) | payer OTHER ==
[~2020-10-11] MED LIST changes: +RISP-8 PO; -RISP1TAB3 PO
[2020-10-11 10:48] LABS: BASO # 0.1 10^3/uL (0.0-0.2); BASO % 1.1 % (0.0-1.0); EOS # 0.3 10^3/uL (0.0-0.5); EOS % 3.9 % (0.0-3.0); HEMATOCRIT 47.8 % (42.0-52.0); HEMOGLOBIN 15.9 g/dl (13.5-17.5); LYMPH # 1.7 10^3/uL (1.5-5.0); MEAN CORPUSCULAR HEMOGLOBIN 30.6 pg (27.0-33.0); MEAN CORPUSCULAR HGB CONC 33.3 g/dl (32.0-36.5); MEAN CORPUSCULAR VOLUME 92.1 fl (80.0-96.0); MONO # 0.6 10^3/uL (0.0-0.8); NEUTROPHILS # 4.3 10^3/uL (1.5-8.5); NEUTROPHILS % 61.7 % (36.0-66.0); PLATELET COUNT, AUTOMATED 262 10^3/uL (150-450); RED BLOOD COUNT 5.19 10^6/uL (4.30-6.10)
[2020-10-11 11:21] LABS: ALT/SGPT 62 U/L (12-78); BILIRUBIN,TOTAL 0.5 MG/DL (0.2-1.0); BLOOD UREA NITROGEN 10 MG/DL (7-18); CARBON DIOXIDE LEVEL 28 MEQ/L (21-32); CHLORIDE LEVEL 107 MEQ/L (98-107); CREATININE FOR GFR 0.96 MG/DL (0.70-1.30); GLOMERULAR FILTRATION RATE > 60.0 (>60); GLUCOSE, FASTING 88 MG/DL (70-100); IMMUNOGLOBULIN G 1120 MG/DL (681-1648); POTASSIUM SERUM 4.4 MEQ/L (3.5-5.1); SODIUM LEVEL 139 MEQ/L (136-145); TOTAL PROTEIN 7.1 GM/DL (6.4-8.2)
== END ==
LOC: M LAB 09:54
PROVIDERS: ATTEND Allergy & Immunology Allergy
DX: D83.9 Common variable immunodeficiency, unspecified (principal)

== ENCOUNTER → 2020-10-11 | Outpatient (CLI) | payer OTHER ==
[2020-10-11 10:48] LABS: BASO # 0.1 10^3/uL (0.0-0.2); EOS # 0.3 10^3/uL (0.0-0.5); EOS % 3.9 % (0.0-3.0); HEMATOCRIT 46.2 % (42.0-52.0); HEMOGLOBIN 15.6 g/dl (13.5-17.5); LYMPH # 1.7 10^3/uL (1.5-5.0); MEAN CORPUSCULAR HEMOGLOBIN 30.5 pg (27.0-33.0); MEAN CORPUSCULAR HGB CONC 33.8 g/dl (32.0-36.5); MEAN CORPUSCULAR VOLUME 90.4 fl (80.0-96.0); MONO # 0.7 10^3/uL (0.0-0.8); MONO % 9.4 % (0.0-5.0); NEUTROPHILS # 4.3 10^3/uL (1.5-8.5); NEUTROPHILS % 61.6 % (36.0-66.0); PLATELET COUNT, AUTOMATED 256 10^3/uL (150-450); RED BLOOD COUNT 5.11 10^6/uL (4.30-6.10)
[2020-10-11 11:31] LABS: ALT/SGPT 59 U/L (12-78); BILIRUBIN,TOTAL 0.5 MG/DL (0.2-1.0); BLOOD UREA NITROGEN 11 MG/DL (7-18); CALCIUM LEVEL 9.5 MG/DL (8.5-10.1); CARBON DIOXIDE LEVEL 28 MEQ/L (21-32); CHLORIDE LEVEL 106 MEQ/L (98-107); CHOLESTEROL LEVEL 211 MG/DL (<200); CHOLESTEROL RISK RATIO 4.489 (<5); CREATININE FOR GFR 0.94 MG/DL (0.70-1.30); FREE T4 0.99 NG/DL (0.76-1.46); GLOMERULAR FILTRATION RATE > 60.0 (>60); GLUCOSE, FASTING 87 MG/DL (70-100); HDL CHOLESTEROL 47 MG/DL (>40); LDL CHOLESTEROL 144 MG/DL (<100); NON-HDL-C 164 MG/DL; POTASSIUM SERUM 4.4 MEQ/L (3.5-5.1); SODIUM LEVEL 141 MEQ/L (136-145); TOTAL PROTEIN 7.2 GM/DL (6.4-8.2); TRIGLYCERIDES LEVEL 101 MG/DL (<150)
[2020-10-13 10:20] LABS: VITAMIN B12 LEVEL 545 PG/ML (247-911)
[2020-10-13 10:22] LABS: FOLATE 10.4 NG/ML (>5.4)
== END ==
LOC: M LAB 09:58
PROVIDERS: ATTEND Nurse Practitioner Family
DX: R51.9 Headache, unspecified (principal)

== ENCOUNTER 2020-11-06 19:53 | Inpatient (IN) | payer OTHER ==
[~2020-11-06] VITALS: Ht 167.6 cm; Wt 69.0 kg
--- OUTSIDE RECORDS SUMMARY | 2020-11-06 20:01 | CCD | Continuity of Care Document ---
Author Author Bam MEDELLIN CAMERA CONTROL OPERATOR Organization Unknown Address [address] [place] [address] Phone [phone] Care Team Providers Care Tests Superintendent Name Role Phone [facility] Neurology - Neurology AUTM Problems Description No Information Available Social History Type Date Description Comments Sex Unknown Tobacco Use Start: Unknown Never Used Smokeless Tobacco ETOH Use Denies alcohol use Tobacco Use Start: 09/26/87 Patient is a current smoker, smo kes every day 5ppd down to currently 1 cigarette per day Recreational Drug Use Denies Drug Use Smoking Status Reviewed: 10/24/20 Patient is a current smoker, smokes every day 5ppd down to currently 1 cigarette per day Exercise Type/Frequency Exercises regularly Tattoo/Piercing Tattoo Tattoo/Piercing Pierced ears Tattoo/Piercing Pierced left eyebrow Tattoo/Piercing Pierced lower lip Tattoo/Piercing Pierced nipples Sun Exposure Excessive amount of sun exposure Sun Exposure Has never experienced blistering from sunburns Sun Exposure No history of sunburn Sun Exposure Does not use sunscreen Sun Exposure Does not use tanning beds Seat Belt/Car Seat Never uses seat belt do to fe eling claustrophobic Bike Helmet Always Smoke Alarms Yes Smoke Alarms Carbon Monoxide Detector: Yes Allergies, Adverse Reactions, Alerts Active Allergies Reaction Severity Comments Date Sulfa Antibiotics SEVERELY ALLERGIC UNK REACTION 09/17/2020 Penicillin V SEVERELY ALLERGIC UNK REACTION 09/17/2020 Clindamycin Diarrhea, LONG LASTING SIDE EFFECTS 09/17/2020 Nickel Contact dermatitis, Hives Medications Active Medications SIG Qnty Indications Ordering Provide r Date Hydroxyzine HCL 10mg Tablets 1-2 tab by mouth three times a day as needed anxiety 60tabs F41.1 Pleska Ericka crBEBO 10/24/2020 Chantix Starting Month Mohit 0.5mg X 11 & 1 mg X 42 Tablets as directed 53tabs F17.210 Ericka MedellinBEBO 10/24 Amitriptyline HCL 25mg Tablets 2 tabs po QHS 60tabs R51.9 Ericka MedellinBEBO 09/17/2020 Gammagard 10GM/100ML Solution 1 Infusion Weekly Unknown Tylenol Extra Strength 500mg Table ts one- two tabs by mouth every 6 hours as needed And prior to infusions Unknown Benadryl Allergy 25mg Tablets 2 by mouth to before infusion Unknown Multivitamin Tablets 1 by mouth every day Unknown Rizatriptan Benzoate 10mg Tablets take on tablet by mouth at first onset of headache, may take one more tablet after two hours if needed R51.9 Unknown Immunizations Description No Information Available Vital Signs Date Vital Result Comment 10/24/2020 8:50am BP Systolic 136 mmHg BP Diastolic 75 mmHg Heart Rate 85 /min Body Temperature 97.6 F Respiratory Rate 18 /min Height 67.0 inches 5'7" Weight 164.50 lb O2 % BldC Oximetry 100 % Peak Expiratory Flow Rate 513 Estimated Peak Flow Rate [place] Body Weight 148 lb BMI (Body Mass Index) 25.8 kg/m2 09/17/2020 8:44am BP Systolic 165 mmHg BP Diastolic 88 mmHg BP Systolic Recheck 147 mmHg BP Diastolic Recheck 84 mmHg Heart Rate 91 /min Body Temperature 96.9 F Respiratory Rate 16 /min Height 67.0 inches 5'7" Weight 156.50 lb O2 % BldC Oximetry 98 % Peak Expiratory Flow Rate 513 Estimated Peak Flow Rate [place] Body Weight 148 lb BMI (Body Mass Index) 24.5 kg/m2 Results Test Acquired Date Facility Test Result H/L Range Note CBC With Differential 10/11/2020 Patient [facility] RADIOLOGY [place], [place] [id number] [phone] White Blood Count 7.0 10 Normal 4.0-10.0 Red Blood Count 5.19 10 Normal 4.30-6.10 Hemoglobin 15.9 g/dL Normal 13.5-17.5 Hematocrit 47.8 % Normal 42.0-52.0 Mean Corpuscular Volume 92.1 fl Normal 80.0-96.0 Mean Corpuscular Hemoglobin 30.6 pg Normal 27.0-33.0 Mean Corpuscular HGB Conc 33.3 g/dL Normal 32.0-36.5 Red Cell Distribution Width 12.5 % Normal 11.5-14.5 Platelet Count, Automated 262 10 Normal 150-450 Neutrophils % 61.7 % Normal 36.0-66.0 Lymph % 24.0 % Normal 24.0-44.0 [place] % 9.0 % High 0.0-5.0 Eos % 3.9 % High 0.0-3.0 Baso % 1.1 % High 0.0-1.0 Immature Granulocyte % 0.3 % Normal 0-3.0 Nucleated Red Blood Cell % 0.0 % Normal 0-0 Neutrophils # 4.3 10 Normal 1.5-8.5 Lymph # 1.7 10 Normal 1.5-5.0 [place] # 0.6 10 Normal 0.0-0.8 Eos # 0.3 10 Normal 0.0-0.5 Baso # 0.1 10 Normal 0.0-0.2 Comprehensive Metabolic Profil 10/11/[address] [place] [address] [phone] Glucose, Fasting 88 mg/dL Normal 70-100 Blood Urea Nitrogen 10 mg/dL Normal 7-18 Creatinine For GFR 0.96 mg/dL Normal 0.70-1.30 Glomerular Filtration Rate > 60.0 Normal >60 1 Sodium Level 139 mEq/L Normal 136-145 Potassium Serum 4.4 mEq/L Normal 3.5-5.1 Chloride Level 107 mEq/L Normal 98-107 Carbon Dioxide Level 28 mEq/L Normal 21-32 Anion Gap 4 mEq/L Low 8-16 Calcium Level 9.0 mg/dL Normal 8.5-10.1 Ast/Sgot 23 U/L Normal 7-37 Alt/SGPT 62 U/L Normal 12-78 Alkaline Phosphatase 75 U/L Normal 45-117 Bilirubin,Total 0.5 mg/dL Normal 0.2-1.0 Total Protein 7.1 GM/DL Normal 6.4-8.2 Albumin 4.0 GM/DL Normal 3.2-5.2 Albumin/Globulin Ratio 1.3 Normal Laboratory test finding 10/11/2020 [place] [address] [phone] Immunoglobulin G 1120 mg/dL Normal 681-1648 CBC With Differential 10/11/2020 [facility] [phone] White Blood Count 7.0 10 Normal 4.0-10.0 Red Blood Count 5.11 10 Normal 4.30-6.10 Hemoglobin 15.6 g/dL Normal 13.5-17.5 Hematocrit 46.2 % Normal 42.0-52.0 Mean Corpuscular Volume 90.4 fl Normal 80.0-96.0 Mean Corpuscular Hemoglobin 30.5 pg Normal 27.0-33.0 Mean Corpuscular HGB Conc 33.8 g/dL Normal 32.0-36.5 Red Cell Distribution Width 12.6 % Normal 11.5-14.5 Platelet Count, Automated 256 10 Normal 150-450 Neutrophils % 61.6 % Normal 36.0-66.0 Lymph % 24.0 % Normal 24.0-44.0 Clarke % 9.4 % High 0.0-5.0 Eos % 3.9 % High 0.0-3.0 Baso % 1.0 % Normal 0.0-1.0 Immature Granulocyte % 0.1 % Normal 0-3.0 Nucleated Red Blood Cell % 0.0 % Normal 0-0 Neutrophils # 4.3 10 Normal 1.5-8.5 Lymph # 1.7 10 Normal 1.5-5.0 Clarke # 0.7 10 Normal 0.0-0.8 Eos # 0.3 10 Normal 0.0-0.5 Baso # 0.1 10 Normal 0.0-0.2 Comprehensive Metabolic Profil 10/11/2020 [facility] [phone] Glucose, Fasting 87 mg/dL Normal 70-100 Blood Urea Nitrogen 11 mg/dL Normal 7-18 Creatinine For GFR 0.94 mg/dL Normal 0.70-1.30 Glomerular Filtration Rate > 60.0 Normal >60 2 Sodium Level 141 mEq/L Normal 136-145 Potassium Serum 4.4 mEq/L Normal 3.5-5.1 Chloride Level 106 mEq/L Normal 98-107 Carbon Dioxide Level 28 mEq/L Normal 21-32 Anion Gap 7 mEq/L Low 8-16 Calcium Level 9.5 mg/dL Normal 8.5-10.1 Ast/Sgot 22 U/L Normal 7-37 Alt/SGPT 59 U/L Normal 12-78 Alkaline Phosphatase 73 U/L Normal 45-117 Bilirubin,Total 0.5 mg/dL Normal 0.2-1.0 Total Protein 7.2 GM/DL Normal 6.4-8.2 Albumin 4.0 GM/DL Normal 3.2-5.2 Albumin/Globulin Ratio 1.3 Normal Laboratory test finding 10/11/2020 [facility] [phone] Vitamin B1 Level Whole Blood 141.9 nmol/L Normal 6 6.5-200.0 3 Vitamin B6,Pyridoxal Phosphate 5.5 ug/L Normal 5.3-46.7 4 Vitamin B3 (Niacin, Nicotinic Acid) Send 10/11/2020 [facility] [phone] Nicotinamide 17.9 ng/mL Normal 5.2-72.1 Nicotinic Acid <5.0 ng/mL Normal 0.0-5.0 Lipid Panel 10/11/2020 [facility]ter [phone] Triglycerides Level 101 mg/dL Normal <150 Cholesterol Level 211 mg/dL High <200 HDL Cholesterol 47 mg/dL Normal >40 LDL Cholesterol 144 mg/dL High <100 Non-HDL-C 164 mg/dL Normal Cholesterol Risk Ratio 4.489 Normal <5 FT4&TSH Panel 10/11/2020 [facility] nter [phone] Thyroid Stimulating Hormone 1.010 uIU/ML Normal 0. 358-3.740 Free T4 0.99 ng/dL Normal 0.76-1.46 Laboratory test finding 10/11/2020 [facility] [phone] Vitamin B12 Level 545 pg/mL Normal 247-911 5 Folate 10.4 NG/ML Normal >5.4 6 1 Units are mL/min/1.73 m2 Chronic Kidney Disease Staging per NKF: Stage I & II GFR >=60 Normal to Mildly Decreased Stage III GFR 30-59 Moderately Decreased Stage IV GFR 15-29 Severely Decreased Stage V GFR <15 Very Little GFR Left ESRD GFR <15 on ENTERPRISE INTEGRATION ARCHITECT 2 Units are mL/min/1.73 m2 Chronic Kidney Disease Staging per NKF: Stage I & II GFR >=60 Normal to Mildly Decreased Stage III GFR 30-59 Moderately Decreased Stage IV GFR 15-29 Severely Decreased Stage V GFR <15 Very Little GFR Left ESRD GFR <15 on ENTERPRISE INTEGRATION ARCHITECT 3 Performed at: - [employer] [id number] Parachute Cushion Installer: Alan Tineo MD, Phone: [phone] Specimen Comment: Test(s) 07 0112-Nicotinamide; 573568-Vceafhtan Acid; 286190- Specimen Comment: Vitamin B6; 690996-Coj. B1, Whole Blood Specimen Comment: was developed and its performance characteristics Specimen Comment: determined by [employer]. It has not been cleared or approved Specimen Comment: by the Food and Drug Administration. 5 VITAMIN B12 NORMAL RANGE NORMAL 247 - 911 PG/ML INDETERMINATE 211 - 246 PG/ML DEFICIENT LESS THAN 211 PG/ML 6 FOLATE NORMAL RANGE NORMAL GREATER THAN 5.4 NG/ML INDETERMINATE 3.4-5.4 NG/ML DEFICIENT LESS THAN 3.4 NG/ML Procedures Date Code Description Status 09/17/2020 05758 Brief Emotional/Beha v Assessment W/ Scoring Doc Per Standard Inst Completed Medical Devices Description No Information Available Encounters Type Date Location Provider Dx Diagnosis Office Visit 10/24/2020 8:45a Main Office Pleskach, Ericka, CAMERA CONTROL OPERATOR R51.9 Headache, unspecified F41.1 Generalized anxiety disorder 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, unspecified F17.210 Nicotine dependence, cigaret madhuri, uncomplicated Office Visit 09/17/2020 9:00a Main Office Pleskach, Ericka, CAMERA CONTROL OPERATOR R51.9 Headache, unspecified F41.1 Generalized anxiety disorder 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, unspecified Z13.89 Encounter for screening for other disorder Assessments Date Code Description Provider 10/24/2020 R51.9 Headache, unspecified Pleskach, Ericka, CAMERA CONTROL OPERATOR 10/24/2020 F41.1 Generalized anxiety disorder Ple skach, Ericka, CAMERA CONTROL OPERATOR 10/24/2020 D83.9 Common variable immunodeficiency , unspecified Pleskach, Ericka, CAMERA CONTROL OPERATOR 10/24/2020 F17.210 Nicotine dependence, cigarettes, uncomplicated Pleskach, Ericka, CAMERA CONTROL OPERATOR 09/17/2020 R51.9 Headache, unspecified Ericka Medellin, CAMERA CONTROL OPERATOR 09/17/2020 F41.1 Generalized anxiety disorder Ericka Fine, CAMERA CONTROL OPERATOR 09/17/2020 D83.9 Common variable immunodeficiency , unspecified Ericka Medellin, CAMERA CONTROL OPERATOR 09/17/2020 Z13.89 Encounter for screening for othe r disorder Ericka Medellin FNP Plan of Treatment Future Appointment(s):* 04/24/2021 8:15 am - Ericka Medellin FNP at Main Office 10/24/2020 - Ericka Medellin FNP* R51.9 Headache, unspecified* Comments:* established with neurology, note reviewed, started on rizatriptan, which patient does not feel has helped. * F41.1 Generalized anxiety disorder* New Medication:* Hydroxyzine HCL 10 mg - 1-2 tab by mouth three times a day as needed anxiety * Comments:* start hydroxyzine as needed * Follow up:* 6 months * D83.9 Common variable immunodeficiency, unspecified* Comments:* follows with game manager * F17.210 Nicotine dependence, cigarettes, uncomplicated* New Medication:* Chantix Starting Month Mohit 0.5 mg X 11 & 1 mg X 42 - as directed * Comments:* Smoking cessation discussed. Risk of cardiovascular disease, cancer and stroke emphasized. Patient offered assistance with smoking cessation. Patient is currently ready to quit. Stop date discussed. Chantix sent to pharmacy * Recommendations:* smoking cessation advised Functional Status Functional Condition Comment Date Status Complete lower and upper and lower dentures Active Independent with all ADL's Activ e Independent with all IADL's Acti ve Mental Status Mental Condition Comment Date Status learns things backwards Active Referrals Refer to Reason for Referral Status Appt Date [facility] Neurology pt last seen 2010. referring back for he caleb Closed 10/08/2020 [facility] [place] [address] [phone]
--- OUTSIDE RECORDS SUMMARY | 2020-11-06 20:02 | CCD | Continuity of Care Document ---
Author Author Bam MEDELLIN LACING PRESSER Organization Unknown Address [address] [place] [address] Phone [phone] Care Team Providers Care Scientific Advisor Name Role Phone [facility] Neurology - Neurology AUTM Problems Description No Information Available Social History Type Date Description Comments Sex Unknown Tobacco Use Start: Unknown Never Used Smokeless Tobacco ETOH Use Denies alcohol use Tobacco Use Start: 09/26/87 Patient is a current smoker, smo kes every day 5ppd down to currently 1 cigarette per day Recreational Drug Use Denies Drug Use Smoking Status Reviewed: 09/17/20 Patient is a current smoker, smokes every [...] SIG Qnty Indications Ordering Provide r Date Amitriptyline HCL 25mg Tablets take one tablet by mouth at bedtime for one week then increase to two tabs at bedtime 60tabs R51.9 Ericka Medellin, BEBO 09/17/2020 Gammagard 10GM/100ML Solution 1 Infusion Weekly Unknown Tylenol Extra Strength 500mg Table ts one- two tabs by mouth every 6 hours as needed And prior to infusions Unknown Benadryl Allergy 25mg Tablets 2 by mouth to before infusion Unknown Multivitamin Tablets 1 by mouth every day Unknown Immunizations Description No Information Available Vital Signs Date Vital Result Comment 09/17/2020 8:44am BP Systolic 165 mmHg BP Diastolic 88 mmHg BP Systolic Recheck 147 mmHg BP Diastolic Recheck 84 mmHg Heart Rate 91 /min Body Temperature 96.9 F Respiratory Rate 16 /min Height 67.0 inches 5'7" Weight 156.50 lb O2 % BldC Oximetry 98 % Peak Expiratory Flow Rate 513 Estimated Peak Flow Rate [place] Body Weight 148 lb BMI (Body Mass Index) 24.5 kg/m2 Results Test Acquired Date Facility Test Result H/L Range Note CBC With Differential 10/11/2020 [place] [address] [phone] White Blood Count 7.0 10 Normal 4.0-10.0 [...] 36.0-66.0 Lymph % 24.0 % Normal 24.0-44.0 [place] % 9.0 % High 0.0-5.0 Eos % 3.9 % High 0.0-3.0 Baso % 1.1 % High 0.0-1.0 Immature Granulocyte % 0.3 % Normal 0-3.0 Nucleated Red Blood Cell % 0.0 % Normal 0-0 Neutrophils # 4.3 10 Normal 1.5-8.5 Lymph # 1.7 10 Normal 1.5-5.0 [place] # 0.6 10 Normal 0.0-0.8 Eos # 0.3 10 Normal 0.0-0.5 Baso # 0.1 10 Normal 0.0-0.2 Comprehensive Metabolic Profil 10/11/[address] [place], [place] [id number] [phone] Glucose, Fasting 88 mg/dL Normal 70-100 Blood [...] Laboratory test finding 10/11/2020 [place] [address] [phone] Immunoglobulin G 1120 mg/dL Normal 681-1648 CBC With Differential 10/11/2020 [facility] [phone] White Blood Count 7.0 10 Normal 4.0-10.0 [...] 36.0-66.0 Lymph % 24.0 % Normal 24.0-44.0 [place] % 9.4 % High 0.0-5.0 Eos % 3.9 % High 0.0-3.0 Baso % 1.0 % Normal 0.0-1.0 Immature Granulocyte % 0.1 % Normal 0-3.0 Nucleated Red Blood Cell % 0.0 % Normal 0-0 Neutrophils # 4.3 10 Normal 1.5-8.5 Lymph # 1.7 10 Normal 1.5-5.0 [place] # 0.7 10 Normal 0.0-0.8 Eos # 0.3 10 Normal 0.0-0.5 Baso # 0.1 10 Normal 0.0-0.2 Comprehensive Metabolic Profil 10/11/2020 [facility] [phone] Glucose, Fasting 87 mg/dL Normal 70-100 Blood [...] GM/DL Normal 3.2-5.2 Albumin/Globulin Ratio 1.3 Normal Lipid Panel 10/11/2020 [facility] nter [phone] Triglycerides Level 101 mg/dL Normal <150 Cholesterol Level 211 mg/dL High <200 HDL Cholesterol 47 mg/dL Normal >40 LDL Cholesterol 144 mg/dL High <100 Non-HDL-C 164 mg/dL Normal Cholesterol Risk Ratio 4.489 Normal <5 FT4&TSH Panel 10/11/2020 [facility] nter [phone] Thyroid Stimulating Hormone 1.010 uIU/ML Normal 0. 358-3.740 Free T4 0.99 ng/dL Normal 0.76-1.46 Laboratory test finding 10/11/2020 [facility] [place] [phone] Vitamin B12 Level 545 pg/mL Normal 247-911 3 Folate 10.4 NG/ML Normal >5.4 4 1 Units are mL/min/1.73 m2 Chronic Kidney Disease Staging per NKF: Stage I & II GFR >=60 Normal to Mildly Decreased Stage III GFR 30-59 Moderately Decreased Stage IV GFR 15-29 Severely Decreased Stage V GFR <15 Very Little GFR Left ESRD GFR <15 on PHYSICIAN AIDE 2 Units are mL/min/1.73 m2 Chronic Kidney Disease Staging per NKF: Stage I & II GFR >=60 Normal to Mildly Decreased Stage III GFR 30-59 Moderately Decreased Stage IV GFR 15-29 Severely Decreased Stage V GFR <15 Very Little GFR Left ESRD GFR <15 on PHYSICIAN AIDE 3 VITAMIN B12 NORMAL RANGE NORMAL 247 - 911 PG/ML INDETERMINATE 211 - 246 PG/ML DEFICIENT LESS THAN 211 PG/ML 4 FOLATE NORMAL RANGE NORMAL GREATER THAN 5.4 NG/ML INDETERMINATE 3.4-5.4 NG/ML DEFICIENT LESS THAN 3.4 NG/ML Procedures Date Code Description Status 09/17/2020 86702 Brief Emotional/Beha v Assessment W/ Scoring Doc Per Standard Inst Completed Medical Devices Description No Information Available Encounters Type Date Location Provider Dx Diagnosis Office Visit 09/17/2020 9:00a Main Office Ericka Medellin FNP R51.9 Headache, unspecified F41.1 Generalized anxiety disorder 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, unspecified Z13.89 Encounter for screening for other disorder Assessments Date Code Description Provider 09/17/2020 R51.9 Headache, unspecified Ericka Medellin FNP 09/17/2020 F41.1 Generalized anxiety disorder Ericka Fine FNP 09/17/2020 D83.9 Common variable immunodeficiency , unspecified Ericka Medellin FNP 09/17/2020 Z13.89 Encounter for screening for othe r disorder Ericka Medellin FNP Plan of Treatment Future Appointment(s):* 10/22/2020 8:15 am - Ericka Medellin FNP at Main Office 09/17/2020 - Ericka Medellin FNP* R51.9 Headache, unspecified* New Medication: * Amitriptyline HCL 25 mg - take one tablet by mouth at bedtime for one week then increase to two tabs at bedtime * Comments:* refer to neurology in [place] * Referral:* [facility] Neurology, Neurology * Follow up:* one month * F41.1 Generalized anxiety disorder * D83.9 Common variable immunodeficiency, unspecified* Comments:* follows with mental health aides teacher * Z13.89 Encounter for screening for other disorder Functional Status Functional Condition Comment Date Status Complete lower and upper and lower dentures Active Independent with all ADL's Activ e Independent with all IADL's Acti ve Mental Status Mental Condition Comment Date Status learns things backwards Active Referrals Refer to Reason for Referral Status Appt Date [facility] Neurology pt last seen 2010. referring back for he caleb Closed 10/08/2020 [address] [place] [address] [phone]
--- OUTSIDE RECORDS SUMMARY | 2020-11-06 20:02 | CCD | Continuity of Care Document ---
Author Author Bam MEDELLIN [facility] Organization Unknown Address [address] [place] [address] Phone [phone] Care Team Providers Care Cabin Worker Name Role Phone [facility] Neurology - Neurology AUTM [phone] Problems Description No Information Available Social History [...] two tabs at bedtime 60tabs R51.9 Ericka Medellin FNP 09/17/2020 Gammagard 10GM/100ML Solution 1 Infusion Weekly [...] Flow Rate 513 Estimated Peak Flow Rate [place] Body Weight 148 lb BMI (Body Mass Index) 24.5 kg/m2 Results Description No Information Available Procedures Date Code Description Status 09/17/2020 16616 Brief Emotional/Beha v Assessment W/ Scoring Doc [...] 09/17/2020 D83.9 Common variable immunodeficiency , unspecified PleskachEricka, SUPERVISOR TITLE 09/17/2020 Z13.89 Encounter for screening for othe r disorder Ericka Medellin FNP Plan of Treatment Future Appointment(s):* 10/22/2020 8:15 am - Ericka Medellin FNP at Main Office 09/17/2020 - Ericka Medellin FNP* R51.9 Headache, unspecified* New Medication: * Amitriptyline HCL 25 mg - take one tablet by mouth at bedtime for one week then increase to two tabs at bedtime * New Labs:* CBC With Differential, Scheduled: 09/17/20 * Comprehensive Metabolic Profil, Scheduled: 09/17/20 * Vitamin B12 & Folate, Scheduled: 09/17/20 * Thiamine Whole Blood (Vitamin B1) [place], Scheduled: 09/17/20 * Vitamin B6,Pyridoxal Phosphate, Scheduled: 09/17/20 * Vitamin B3 (Niacin, Nicotinic Acid) Send, Scheduled: 09/17/20 * Lipid Panel, Scheduled: 09/17/20 * TSH And T4 Free (Mateo), Scheduled: 09/17/20 * Comments:* refer to neurology in [place] * Referral:* [facility] Neurology, Neurology * Follow up:* one month * F41.1 Generalized anxiety disorder * D83.9 Common variable immunodeficiency, unspecified* Comments:* follows with manager pacu * Z13.89 Encounter for screening for other disorder Functional Status Functional Condition Comment Date Status Complete lower and upper and lower dentures Active Independent with all ADL's Activ e Independent with all IADL's Acti ve Mental Status Mental Condition Comment Date Status learns things backwards Active Referrals Refer to Reason for Referral Status Appt Date [facility] Neurology pt last seen 2010. referring back for he caleb [address] [place] [address] [phone]
--- OUTSIDE RECORDS SUMMARY | 2020-11-06 20:02 | CCD | Continuity of Care Document ---
Author Author Bam MEDELLIN Organization Unknown Address [address] [place] [address] Phone [phone] Problems Description No Information Available Social History [...] Flow Rate 513 Estimated Peak Flow Rate [place] Body Weight 148 lb BMI (Body Mass Index) 24.5 kg/m2 Results Description No Information Available Procedures Description No Information Available Medical Devices Description No Information Available Encounters Description No Information Available Assessments Date Code Description Provider 09/17/2020 R51.9 Headache, unspecified Ericka Medellin FNP 09/17/2020 F41.1 Generalized anxiety disorder Ple Ericka vera FNP 09/17/2020 D83.9 Common variable immunodeficiency , unspecified Ericka Medellin FNP Plan of Treatment 09/17/2020 - Ericka Medellin FNP* R51.9 Headache, [...] Scheduled: 09/17/20 * Comments:* refer to neurology * Follow up:* one month * F41.1 Generalized anxiety disorder * D83.9 Common variable immunodeficiency, unspecified Functional Status Functional Condition Comment Date Status Complete lower and upper and lower dentures Active Independent with all ADL's Activ e Independent with all IADL's Acti ve Mental Status Mental Condition Comment Date Status learns things backwards Active Referrals Description No Information Available
--- OUTSIDE RECORDS SUMMARY | 2020-11-06 20:02 | CCD | Continuity of Care Document ---
Author Bam Poole M.D. Organization Unknown Address [address] [place] [address] Phone [phone] Care Team Providers Care Die Maintenance Technician Name Role Phone Ericka Medellin AUTM [phone] Problems Active Problems Provider Date Chronic intractable migraine without aura Cruz Turk M.D. Onset: 10/08/2020 Chronic tension-type headache Cruz Turk M.D. Onset: Neck pain Cruz Turk M.D. Onset: 10/08/2020 Cervico-occipital neuralgia Cruz Turk M.D. Onset: 10/08 Spondylolysis Cruz Turk M.D. Onset: 10/08/2020 Low back pain Cruz Turk M.D. Onset: 10/08/2020 Social History Type Date Description Comments Sex Unknown Tobacco Use Start: Unknown Light tobacco smoker (10 or fewe r cigarettes/day) Allergies, Adverse Reactions, Alerts Description No Information Available Medications Active Medications SIG Qnty Indications Ordering Provide r Date Amitriptyline HCL 50mg Tablets 1 by mouth every night at bedtime 30tabs Cruz Turk M.D. 10/08/19 21 Rizatriptan Benzoate 10mg Tablets Dispers 1 by mouth at headache onset, may repeat once after 2 hrs. 9tajose alejandro Turk M.D. 10/08/2020 Naproxen 500mg Tablets 1 by mouth twice a day as needed for headaches 30tabs Cruz Turk M.D. Immunizations Description No Information Available Vital Signs Date Vital Result Comment 10/08/2020 9:11am BP Systolic 100 mmHg BP Diastolic 70 mmHg Heart Rate 78 /min Respiratory Rate 14 /min Height 67 inches 5'7" Weight 160.00 lb BMI (Body Mass Index) 25.1 kg/m2 [place] Body Weight 148 lb Results Description No Information Available Procedures Description No Information Available Medical Devices Description No Information Available Encounters Type Date Location Provider Dx Diagnosis Office Visit 10/08/2020 8:30a [facility] Kye Maldonado G43.719 Chronic migraine w/o aura, intractable, w/o stat migr G44.221 Chronic tension-type headach e, intractable M54.2 Cervicalgia M54.81 Occipital neuralgia M43.06 Spondylolysis, lumbar region M54.5 Low back pain Assessments Date Code Description Provider 10/08/2020 G43.719 Chronic migraine wit hout aura, intractable, without status migrainosus Cruz Turk M.D. 10/08/2020 G44.221 Chronic tension-type headache, i ntractable Cruz Turk M.D. 10/08/2020 M54.2 Cervicalgia Cruz Turk M.D. 10/08/2020 M54.81 Occipital neuralgia Cruz Turk M.D. 10/08/2020 M43.06 Spondylolysis, lumbar region Dave Turk M.D. 10/08/2020 M54.5 Low back pain Cruz Turk M.D. Plan of Treatment Future Appointment(s):* 11/19/2020 12:15 pm - Cruz Turk M.D. at [facility] Functional Status Description No Information Available Mental Status Description No Information Available Referrals Description No Information Available
--- OUTSIDE RECORDS SUMMARY | 2020-11-06 20:02 | CCD | Continuity of Care Document ---
Author Author Bam WELLS M.D. Organization Unknown Address [address], [address], [place] [address] Phone [phone] Care Team Providers Care String Laster Name Role Phone Sania Rojas MD AUTM [phone] Problems Active Problems Provider Date Allergic rhinitis due to pollen Onset: 1 11/14/2017 Note: 3+ reaction to goldenrod and ragwe ed pollens on scratch test completed in 2018. Common variable agammaglobulinemia Onset : 09/13/2018 Chronic sinusitis Onset: 09/13/2018 Social History Type Date Description Comments Sex Unknown Tobacco Use Start: 09/26/85 Light tobacco smoker (10 or fewe r cigarettes/day) 6 Cigarettes Per Day Smoking Status Reviewed: 09/03/20 Light tobacco smoker (10 or fewer cigarettes/day) 6 Cigarettes Per Day Allergies, Adverse Reactions, Alerts Active Allergies Reaction Severity Comments Date Penicillins unknown as 05/19/2019 Sulfonamides unknown as child 05/19/2019 Aspirin unknown as child 05/19/2019 Clindamycin middle or intermediate school principal side effects 12 months 05/19/2019 Nickel 05/19/2019 Medications Active Medications SIG Qnty Indications Ordering Provide r Date Hydrocortisone 2.5% Cream apply topically twice daily as needed for 7-10 days for flare of dermatitis 60gm Stanislaw Wells M.D. 03/05/2020 Gammagard 10GM/100ML Solution infuse 10gm (100ml) subcutaneously via freedom 60 pump once weekly 400ml Stanislaw Wells M.D. Nicotine Transdermal System Step 1 21mg/24HR Patches 24HR Apply 1 patch per day Unknown 000 Immunizations Description No Information Available Vital Signs Date Vital Result Comment 09/03/2020 3:47pm Weight 159.38 lb Height 66.5 inches 5'6.50" Heart Rate 88 /min Respiratory Rate 18 /min BP Systolic 155 mmHg BP Diastolic 76 mmHg BMI (Body Mass Index) 25.3 kg/m2 03/05/2020 10:26am Weight 165.00 lb Height 67 inches 5'7" Heart Rate 83 /min Respiratory Rate 16 /min BP Systolic 118 mmHg BP Diastolic 62 mmHg BMI (Body Mass Index) 25.8 kg/m2 Results Test Acquired Date Facility Test Result H/L Range Note CBC With Differential 10/11/[address] [facility] White Blood Count 7.0 10 Normal 4.0-10.0 [...] 36.0-66.0 Lymph % 24.0 % Normal 24.0-44.0 [place] % 9.0 % High 0.0-5.0 Eos % 3.9 % High 0.0-3.0 Baso % 1.1 % High 0.0-1.0 Immature Granulocyte % 0.3 % Normal 0-3.0 Nucleated Red Blood Cell % 0.0 % Normal 0-0 Neutrophils # 4.3 10 Normal 1.5-8.5 Lymph # 1.7 10 Normal 1.5-5.0 [place] # 0.6 10 Normal 0.0-0.8 Eos # 0.3 10 Normal 0.0-0.5 Baso # 0.1 10 Normal 0.0-0.2 Comprehensive Metabolic Profil 10/11/[address] [facility] Glucose, Fasting 88 mg/dL Normal 70-100 Blood [...] Ratio 1.3 Normal Laboratory test finding 10/11/[address] [facility] Immunoglobulin G 1120 mg/dL Normal 681-1648 1 Units are mL/min/1.73 m2 Chronic Kidney Disease Staging per NKF: Stage I & II GFR >=60 Normal to Mildly Decreased Stage III GFR 30-59 Moderately Decreased Stage IV GFR 15-29 Severely Decreased Stage V GFR <15 Very Little GFR Left ESRD GFR <15 on CONSOLE OPERATOR Procedures Description No Information Available Medical Devices Description No Information Available Encounters Type Date Location Provider Dx Diagnosis Office Visit 09/03/2020 3:45p Main Office Stanislaw Wells M.D. D83.9 Common variable immunodeficiency, unspecified J30.1 Allergic rhinitis due to lisandra vicki Assessments Date Code Description Provider 09/03/2020 D83.9 Common variable immunodeficiency , unspecified Stanislaw Wells M.D. 09/03/2020 J30.1 Allergic rhinitis due to pollen Stanislaw Wells M.D. Plan of Treatment Future Appointment(s):* 03/04/2021 11:00 am - Stanislaw Wells M.D. 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 Patient encouraged to report any suspected infection early. Infections should be treated with longer courses of antibiotics in order to eradicate infection due to being immunocompromised. Blood work to be repeated 1-2 days before infusion later this week. He should contact Home Health agency to supervise one of the infusions in order to determine the cause of the leaks and localized reactions (needle type or needle positioning issue). He will let us know if this issue is not resolved. * J30.1 Allergic rhinitis due to pollen* Recommendations:* Discussed if symptoms persistent in the spring or late summer that he may have to consider medications for allergic rhinitis. * All * Follow up:* Recheck in 6 months. Repeat trough IgG before next visit. Will call us for blood request. Functional Status Description No Information Available Mental Status Description No Information Available Referrals Description No Information Available
--- OUTSIDE RECORDS SUMMARY | 2020-11-06 20:02 | CCD | Continuity of Care Document ---
Author Organization Unknown Address Unknown Phone Unavailable Care Team Providers Care Maintenance Service Dispatcher Name Role Phone [facility] Neurology - Neurology AUTM Problems Description [...] Flow Rate 513 Estimated Peak Flow Rate [place] Body Weight 148 lb BMI (Body Mass Index) 24.5 kg/m2 Results Test Acquired Date Facility Test Result H/L Range Note CBC With Differential 10/11/2020 [facility] [place] [id number] [phone] White Blood Count 7.0 10 Normal 4.0-10.0 [...] 36.0-66.0 Lymph % 24.0 % Normal 24.0-44.0 [place] % 9.0 % High 0.0-5.0 Eos % 3.9 % High 0.0-3.0 Baso % 1.1 % High 0.0-1.0 Immature Granulocyte % 0.3 % Normal 0-3.0 Nucleated Red Blood Cell % 0.0 % Normal 0-0 Neutrophils # 4.3 10 Normal 1.5-8.5 Lymph # 1.7 10 Normal 1.5-5.0 [place] # 0.6 10 Normal 0.0-0.8 Eos # 0.3 10 Normal 0.0-0.5 Baso # 0.1 10 Normal 0.0-0.2 Comprehensive Metabolic Profil 10/11/2020 [facility] [place], [place] [id number] [phone] Glucose, Fasting 88 mg/dL Normal 70-100 Blood [...] Normal Laboratory test finding 10/11/2020 Patient Service [place], [place] [id number] [phone] Immunoglobulin G 1120 mg/dL Normal 681-1648 CBC With Differential 10/11/2020 [facility] [phone] White Blood Count 7.0 10 Normal 4.0-10.0 [...] 36.0-66.0 Lymph % 24.0 % Normal 24.0-44.0 [place] % 9.4 % High 0.0-5.0 Eos % 3.9 % High 0.0-3.0 Baso % 1.0 % Normal 0.0-1.0 Immature Granulocyte % 0.1 % Normal 0-3.0 Nucleated Red Blood Cell % 0.0 % Normal 0-0 Neutrophils # 4.3 10 Normal 1.5-8.5 Lymph # 1.7 10 Normal 1.5-5.0 [place] # 0.7 10 Normal 0.0-0.8 Eos # 0.3 10 Normal 0.0-0.5 Baso # 0.1 10 Normal 0.0-0.2 Comprehensive Metabolic Profil 10/11/2020 [facility] [phone] Glucose, Fasting 87 mg/dL Normal 70-100 Blood [...] Ratio 1.3 Normal Laboratory test finding 10/11/2020 [facility] [phone] Thiamine Whole Blood (Vitamin B1) Sendo <pending> Vitamin B6,Pyridoxal Phosphate <pending> Vitamin B3 (Niacin, Nicotinic Acid) Send <pending> Lipid Panel 10/11/2020 [facility] nter [phone] Triglycerides Level 101 mg/dL Normal <150 Cholesterol Level 211 mg/dL High <200 HDL Cholesterol 47 mg/dL Normal >40 LDL Cholesterol 144 mg/dL High <100 Non-HDL-C 164 mg/dL Normal Cholesterol Risk Ratio 4.489 Normal <5 TSH And T4 Free ([facility]) 10/11/2020 [facility] [phone] Thyroid Stimulating Hormone <pending> Free T4 <pending> FT4&TSH Panel 10/11/2020 [facility] nter [phone] Thyroid Stimulating Hormone 1.010 uIU/ML Normal 0. 358-3.740 Free T4 0.99 ng/dL Normal 0.76-1.46 Laboratory test finding 10/11/2020 [facility] [phone] Vitamin B12 Level 545 pg/mL Normal 247-911 3 Folate 10.4 NG/ML Normal >5.4 4 1 Units are mL/min/1.73 m2 Chronic Kidney Disease Staging per NKF: Stage I & II GFR >=60 Normal to Mildly Decreased Stage III GFR 30-59 Moderately Decreased Stage IV GFR 15-29 Severely Decreased Stage V GFR <15 Very Little GFR Left ESRD GFR <15 on FLIGHT NURSE 2 Units are mL/min/1.73 m2 Chronic Kidney Disease Staging per NKF: Stage I & II GFR >=60 Normal to Mildly Decreased Stage III GFR 30-59 Moderately Decreased Stage IV GFR 15-29 Severely Decreased Stage V GFR <15 Very Little GFR Left ESRD GFR <15 on FLIGHT NURSE 3 VITAMIN B12 NORMAL RANGE NORMAL 247 - 911 PG/ML INDETERMINATE 211 - 246 PG/ML DEFICIENT LESS THAN 211 PG/ML 4 FOLATE NORMAL RANGE NORMAL GREATER THAN 5.4 NG/ML INDETERMINATE 3.4-5.4 NG/ML DEFICIENT LESS THAN 3.4 NG/ML Procedures Date Code Description Status 09/17/2020 29873 Brief Emotional/Beha v Assessment W/ Scoring Doc [...] FNP 09/17/2020 F41.1 Generalized anxiety disorder Ericka Fine, BEBO 09/17/2020 D83.9 Common variable immunodeficiency , unspecified [...] bedtime * Comments:* refer to neurology in [place] * Referral:* [facility] Neurology, Neurology * Follow up:* one month * F41.1 Generalized anxiety disorder * 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 referring back for he caleb Closed 10/08/2020 [address] [place] [address] [phone]
--- OUTSIDE RECORDS SUMMARY | 2020-11-06 20:02 | CCD | Continuity of Care Document ---
Author Author Bam WELLS M.D. Organization Unknown Address [address], [place] [address] Phone [phone] Care Team Providers Care Marine Insurance Claim Examiner Name Role Phone Sania Rojas MD AUTM [phone] Problems Active Problems Provider Date Allergic rhinitis [...] 05/19/2019 Aspirin unknown as child 05/19/2019 Clindamycin lobsterman side effects 12 months 05/19/2019 Nickel 05/19/2019 [...] BMI (Body Mass Index) 25.8 kg/m2 Results Description No Information Available Procedures [...]
--- OUTSIDE RECORDS SUMMARY | 2020-11-06 20:02 | CCD | Continuity of Care Document ---
Author Author Bam MEDELLIN DRILLING FOREMAN Organization Unknown Address [address] [place] [address] Phone [phone] Care Team Providers Care Matlab Developer Name Role Phone [facility] Neurology - Neurology AUTM Problems [...] Flow Rate 513 Estimated Peak Flow Rate [place] Body Weight 148 lb BMI (Body Mass [...] Flow Rate 513 Estimated Peak Flow Rate [place] Body Weight 148 lb BMI (Body Mass Index) 24.5 kg/m2 Results Test Acquired Date Facility Test Result H/L Range Note CBC With Differential 10/11/2020 Patient [facility] RADIOLOGY [place], [place] [id number] [phone] White Blood Count 7.0 10 Normal 4.0-10.0 [...] 36.0-66.0 Lymph % 24.0 % Normal 24.0-44.0 [place] % 9.0 % High 0.0-5.0 Eos % 3.9 % High 0.0-3.0 Baso % 1.1 % High 0.0-1.0 Immature Granulocyte % 0.3 % Normal 0-3.0 Nucleated Red Blood Cell % 0.0 % Normal 0-0 Neutrophils # 4.3 10 Normal 1.5-8.5 Lymph # 1.7 10 Normal 1.5-5.0 [place] # 0.6 10 Normal 0.0-0.8 Eos # 0.3 10 Normal 0.0-0.5 Baso # 0.1 10 Normal 0.0-0.2 Comprehensive Metabolic Profil 10/11/[address] [place] [address] [phone] Glucose, Fasting 88 mg/dL Normal 70-100 Blood [...] Laboratory test finding 10/11/2020 [place] [address] [phone] Immunoglobulin G 1120 mg/dL Normal 681-1648 CBC With Differential 10/11/2020 [facility] [phone] White Blood Count 7.0 10 Normal 4.0-10.0 [...] 36.0-66.0 Lymph % 24.0 % Normal 24.0-44.0 [place] % 9.4 % High 0.0-5.0 Eos % 3.9 % High 0.0-3.0 Baso % 1.0 % Normal 0.0-1.0 Immature Granulocyte % 0.1 % Normal 0-3.0 Nucleated Red Blood Cell % 0.0 % Normal 0-0 Neutrophils # 4.3 10 Normal 1.5-8.5 Lymph # 1.7 10 Normal 1.5-5.0 [place] # 0.7 10 Normal 0.0-0.8 Eos # 0.3 10 Normal 0.0-0.5 Baso # 0.1 10 Normal 0.0-0.2 Comprehensive Metabolic Profil 10/11/2020 [facility] [phone] Glucose, Fasting 87 mg/dL Normal 70-100 Blood [...] Ratio 1.3 Normal Laboratory test finding 10/11/2020 [facility] [phone] Vitamin B1 Level Whole Blood 141.9 nmol/L Normal 6 6.5-200.0 3 Vitamin B6,Pyridoxal Phosphate 5.5 ug/L Normal 5.3-46.7 4 Vitamin B3 (Niacin, Nicotinic Acid) Send 10/11/2020 [facility] [phone] Nicotinamide 17.9 ng/mL Normal 5.2-72.1 Nicotinic Acid <5.0 ng/mL Normal 0.0-5.0 Lipid Panel 10/11/2020 [facility] nter [phone] Triglycerides Level 101 mg/dL Normal <150 Cholesterol Level 211 mg/dL High <200 HDL Cholesterol 47 mg/dL Normal >40 LDL Cholesterol 144 mg/dL High <100 Non-HDL-C 164 mg/dL Normal Cholesterol Risk Ratio 4.489 Normal <5 FT4&TSH Panel 10/11/2020 [facility] nter [phone] Thyroid Stimulating Hormone 1.010 uIU/ML Normal 0. 358-3.740 Free T4 0.99 ng/dL Normal 0.76-1.46 Laboratory test finding 10/11/2020 [facility] [phone] Vitamin B12 Level 545 pg/mL Normal 247-911 5 Folate 10.4 NG/ML Normal >5.4 6 1 Units are mL/min/1.73 m2 Chronic Kidney Disease Staging per NKF: Stage I & II GFR >=60 Normal to Mildly Decreased Stage III GFR 30-59 Moderately Decreased Stage IV GFR 15-29 Severely Decreased Stage V GFR <15 Very Little GFR Left ESRD GFR <15 on SHAKE SPLITTER 2 Units are mL/min/1.73 m2 Chronic Kidney Disease Staging per NKF: Stage I & II GFR >=60 Normal to Mildly Decreased Stage III GFR 30-59 Moderately Decreased Stage IV GFR 15-29 Severely Decreased Stage V GFR <15 Very Little GFR Left ESRD GFR <15 on SHAKE SPLITTER 3 Performed at: - [facility] [id number] Mobile Electronics Installer: Alan Tineo MD, Phone: [phone] Specimen Comment: Test(s) 07 0112-Nicotinamide; 475721-Bdzonshmv Acid; 893299- Specimen Comment: Vitamin B6; 023910-Exd. B1, Whole Blood Specimen Comment: was developed and its performance characteristics Specimen Comment: determined by [facility]. It has not been cleared or approved Specimen Comment: by the Food and Drug Administration. 5 VITAMIN B12 NORMAL RANGE NORMAL 247 - 911 PG/ML INDETERMINATE 211 - 246 PG/ML DEFICIENT LESS THAN 211 PG/ML 6 FOLATE NORMAL RANGE NORMAL GREATER THAN 5.4 NG/ML INDETERMINATE 3.4-5.4 NG/ML DEFICIENT LESS THAN 3.4 NG/ML Procedures Date Code Description Status 09/17/2020 80203 Brief Emotional/Beha v Assessment W/ Scoring Doc Per Standard Inst Completed Medical Devices Description No Information Available Encounters Type Date Location Provider Dx Diagnosis Office Visit 09/17/2020 9:00a Main Office Matthew Medelliny, DRILLING FOREMAN R51.9 Headache, unspecified F41.1 Generalized anxiety disorder 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, unspecified Z13.89 Encounter for screening for other disorder Assessments Date Code Description Provider 10/24/2020 R51.9 Headache, unspecified Pleskach, Ericka, DRILLING FOREMAN 10/24/2020 F41.1 Generalized anxiety disorder Ple skach, Ericka, DRILLING FOREMAN 10/24/2020 D83.9 Common variable immunodeficiency , unspecified Pleskach, Ericka, DRILLING FOREMAN 10/24/2020 F17.210 Nicotine dependence, cigarettes, uncomplicated Pleskach, Ericka, DRILLING FOREMAN 09/17/2020 R51.9 Headache, unspecified Pleskach, Ericka, DRILLING FOREMAN 09/17/2020 F41.1 Generalized anxiety disorder Ple skach, Ericka, DRILLING FOREMAN 09/17/2020 D83.9 Common variable immunodeficiency , unspecified Pleskach, Ericka, DRILLING FOREMAN 09/17/2020 Z13.89 Encounter for screening for othe r disorder Ericka Medellin FNP Plan of Treatment Future Appointment(s):* 04/24/2021 8:15 am - Ericka Medellin FNP at Main Office 10/24/2020 - Ericka Medellin FNP* R51.9 Headache, unspecified* Comments:* established with neurology, started on rizatriptan, which patient does not feel has helped. 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 referring back for he caleb Closed 10/08/2020 [facility] [place] [address] [phone]
--- OUTSIDE RECORDS SUMMARY | 2020-11-06 20:03 | CCD ---
Author Author [facility] Organization [facility] Address Unknown Phone Unavailable Support Name Relationship Address Phone [facility] Next Of Kin [address] [facility] [address] [place] [address] OD GREENS Next Of Kin [address] [place] [address] O.D. HANNON Next Of Kin [address] [place] [address] O.D. HANNON [facility] Next Of Kin [address] [place] [address] OD GREEN Next Of Kin [address] [place] [address] O.D. 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 Next Of Kin [address] [place] [address] OD HANNON Next Of Kin [address] [place] [address] DAVID GARCIA Next Of Kin [address] [place] [id number] David Garcia [place] [id number] GUILHERME CURTISANNE [facility] [address] [place] [address] Unavailable Care Team Providers Care Agricultural Systems Specialist Name Role Phone JAZIEL WELLS MD Unavailable Unavailable CHROSTJAZIEL WOLFE MD Unavailable Unavailable CHROSTJAZIEL WOLFE MD Unavailable Unavailable CHROSTJAZIEL WOLFE MD Unavailable Unavailable CHROSTJAZIEL WOLFE MD Unavailable Unavailable CHROSTJAZIEL WOLFE MD Unavailable Unavailable CHROSTJAZIEL WOLFE MD Unavailable Unavailable CHROSTJAZIEL WOLFE MD Unavailable Unavailable CHROSTOWSKIJAZIEL MD Unavailable Unavailable CHROSTOWSKIJAZIEL MD Unavailable Unavailable CHROSTOWSKIJAZIEL MD Unavailable Unavailable CHROSTJAZIEL WOLFE MD Unavailable Unavailable CHROSTJAZIEL WOLFE MD Unavailable Unavailable CHROSTJAZIEL WOLFE MD Unavailable Unavailable CHROSTJAZIEL WOLFE MD Unavailable Unavailable CHROSTJAZIEL WOLFE MD Unavailable Unavailable CHROSTJAZIEL WOLFE MD Unavailable Unavailable CHROSTJAZIEL WOLFE MD Unavailable Unavailable CHROSTJAZIEL WOLFE MD Unavailable Unavailable CHROSTJAZIEL WOLFE MD Unavailable Unavailable CHROSTJAZIEL WOLFE MD Unavailable Unavailable CHROSTOWSKIJAZIEL MD Unavailable Unavailable CHROSTJAZIEL WOLFE MD Unavailable Unavailable CHROSTOWSKIJAZIEL MD Unavailable Unavailable CHROSTJAZIEL WOLFE MD Unavailable Unavailable CHROSTOWSKIJAZIEL MD Unavailable Unavailable CHROSTOWSKIJAZIEL MD Unavailable Unavailable CHROSTOWSKIJAZIEL MD Unavailable Unavailable CHROSTOWSKIJAZIEL MD Unavailable Unavailable CHROSTOWSKIJAZIEL MD Unavailable Unavailable CHROSTJAZIEL WOLFE MD Unavailable Unavailable CHROSTJAZIEL WOLFE MD Unavailable Unavailable CHROSTJAZIEL WOLFE MD Unavailable Unavailable CHROSTOWSKILEONORJAZIEL MD Unavailable Unavailable CHROSTOWSKIJAZIEL MD Unavailable Unavailable CHROSTOWSKILEONORJAZIEL MD Unavailable Unavailable CHROSTOWSKIJAZIEL MD Unavailable Unavailable CHROSTJAZIEL WOLFE MD Unavailable Unavailable CHROSTOWSKIJAZIEL MD Unavailable Unavailable CHROSTJAZIEL WOLFE MD Unavailable Unavailable [place], Ericka CAMPAIGN ASSOCIATE Unavailable Unavailable Pleskach, Ericka CAMPAIGN ASSOCIATE Unavailable Unavailable [place], Ericka CAMPAIGN ASSOCIATE Unavailable Unavailable [place], Ericka CAMPAIGN ASSOCIATE Unavailable Unavailable [place], Ericka CAMPAIGN ASSOCIATE Unavailable Unavailable [place], Ericka CAMPAIGN ASSOCIATE Unavailable Unavailable [place], Ericka CAMPAIGN ASSOCIATE Unavailable Unavailable [place], Ericka CAMPAIGN ASSOCIATE Unavailable Unavailable Pleskach, Ericka CAMPAIGN ASSOCIATE Unavailable Unavailable [place], Ericka CAMPAIGN ASSOCIATE Unavailable Unavailable [place], Ericka CAMPAIGN ASSOCIATE Unavailable Unavailable [place]ach, Ericka CAMPAIGN ASSOCIATE Unavailable Unavailable [place], Ericka CAMPAIGN ASSOCIATE Unavailable Unavailable Pleskach, Ericka CAMPAIGN ASSOCIATE Unavailable Unavailable Pleskach, Ericka CAMPAIGN ASSOCIATE Unavailable Unavailable Pleskach, Ericka CAMPAIGN ASSOCIATE Unavailable Unavailable Pleskach, Ericka CAMPAIGN ASSOCIATE Unavailable Unavailable Pleskach, Ericka CAMPAIGN ASSOCIATE Unavailable Unavailable [place]leskach, Ericka CAMPAIGN ASSOCIATE Unavailable Unavailable [place]leskach, Ericka CAMPAIGN ASSOCIATE Unavailable Unavailable [place], Ericka CAMPAIGN ASSOCIATE Unavailable Unavailable Pleskach, Ericka CAMPAIGN ASSOCIATE Unavailable Unavailable Pleskach, Ericka CAMPAIGN ASSOCIATE Unavailable Unavailable Pleskach, Ericka CAMPAIGN ASSOCIATE Unavailable Unavailable Pleskach, Ericka CAMPAIGN ASSOCIATE Unavailable Unavailable Pleskach, Ericka CAMPAIGN ASSOCIATE Unavailable Unavailable Pleskach, Ericka CAMPAIGN ASSOCIATE Unavailable Unavailable Pleskach, Ericka CAMPAIGN ASSOCIATE Unavailable Unavailable Pleskach, Ericka CAMPAIGN ASSOCIATE Unavailable Unavailable [place], Ericka CAMPAIGN ASSOCIATE Unavailable Unavailable [place], L Angella PIPELINE CONTROLLER Unavailable Unavailable [place], L Angella PIPELINE CONTROLLER Unavailable Unavailable [place], L Angella PIPELINE CONTROLLER Unavailable Unavailable [place], L Angella PIPELINE CONTROLLER Unavailable Unavailable Emma, L Angella PIPELINE CONTROLLER Unavailable Unavailable [place], L Angella PIPELINE CONTROLLER Unavailable Unavailable Emma, L Angella PIPELINE CONTROLLER Unavailable Unavailable Emma, L Angella PIPELINE CONTROLLER Unavailable Unavailable Emma, L Angella PIPELINE CONTROLLER Unavailable Unavailable [place], L Angella PIPELINE CONTROLLER Unavailable Unavailable Emma, L Angella PIPELINE CONTROLLER Unavailable Unavailable [place], L Angella PIPELINE CONTROLLER Unavailable Unavailable Emma, L Angella PIPELINE CONTROLLER Unavailable Unavailable Emma, L Angella PIPELINE CONTROLLER Unavailable Unavailable Emma, L Angella PIPELINE CONTROLLER Unavailable Unavailable Emma, L Angella PIPELINE CONTROLLER Unavailable Unavailable [place], L Angella PIPELINE CONTROLLER Unavailable Unavailable Emma, L Angella PIPELINE CONTROLLER Unavailable Unavailable [place], L Angella PIPELINE CONTROLLER Unavailable Unavailable [place], L Angella PIPELINE CONTROLLER Unavailable Unavailable [place], L Angella PIPELINE CONTROLLER Unavailable Unavailable [place], L Angella PIPELINE CONTROLLER Unavailable Unavailable Emma, L Angella PIPELINE CONTROLLER Unavailable Unavailable Emma, L Angella PIPELINE CONTROLLER Unavailable Unavailable [place], L Angella PIPELINE CONTROLLER Unavailable Unavailable Emma, L Angella PIPELINE CONTROLLER Unavailable Unavailable [place], L Angella PIPELINE CONTROLLER Unavailable Unavailable Emma, L Angella PIPELINE CONTROLLER Unavailable Unavailable [place], L Angella PIPELINE CONTROLLER Unavailable Unavailable Emma, L Angella PIPELINE CONTROLLER Unavailable Unavailable [place], L Angella PIPELINE CONTROLLER Unavailable Unavailable [place], L Angella PIPELINE CONTROLLER Unavailable Unavailable [place], L Angella PIPELINE CONTROLLER Unavailable Unavailable Ali, Cruz MD Unavailable Unavailable Ali, Cruz MD Unavailable Unavailable Ali, Cruz MD Unavailable Unavailable Ali, Cruz MD Unavailable Unavailable Ali, Cruz MD Unavailable Unavailable Ali, Cruz MD Unavailable Unavailable Ali, Cruz MD Unavailable Unavailable Ali, Cruz MD Unavailable Unavailable Ali, Cruz MD Unavailable Unavailable Ali, Cruz MD Unavailable Unavailable Ali, Cruz MD Unavailable Unavailable Ali, Cruz MD Unavailable Unavailable Ali, Cruz MD Unavailable Unavailable Ali, Cruz MD Unavailable Unavailable Ali, Cruz MD Unavailable Unavailable Ali, Cruz MD Unavailable Unavailable Ali, Cruz MD Unavailable Unavailable Ali, Cruz MD Unavailable Unavailable Ali, Cruz MD Unavailable Unavailable Ali, Cruz MD Unavailable Unavailable Ali, Cruz MD Unavailable Unavailable Ali, Cruz MD Unavailable Unavailable Ali, Cruz MD Unavailable Unavailable Ali, Cruz MD Unavailable Unavailable Ali, Cruz MD Unavailable Unavailable Ali, Cruz MD Unavailable Unavailable Ali, Cruz MD Unavailable Unavailable Ali, Cruz MD Unavailable Unavailable Ali, Cruz MD Unavailable Unavailable Ali, Cruz MD Unavailable Unavailable Ali, Cruz MD Unavailable Unavailable Ali, Cruz MD Unavailable Unavailable Ali, Cruz MD Unavailable Unavailable Ali, Cruz MD Unavailable Unavailable Ali, Cruz MD Unavailable Unavailable Ali, Cruz MD Unavailable Unavailable Ali, Cruz MD Unavailable Unavailable Ali, Cruz MD Unavailable Unavailable Ali, Cruz MD Unavailable Unavailable Ali, Cruz MD Unavailable Unavailable Ali, Cruz MD Unavailable Unavailable Ali, Cruz MD Unavailable Unavailable Ali, Cruz MD Unavailable Unavailable Ali, Cruz MD Unavailable Unavailable Ali, Cruz MD Unavailable Unavailable Ali, Cruz MD Unavailable Unavailable Ali, Cruz MD Unavailable Unavailable Ali, Cruz MD Unavailable Unavailable Ali, Cruz MD Unavailable Unavailable Re-disclosure Warning The records that you are about to access may contain information from federally-assisted alcohol or drug abuse programs. If such information is present, then the following federally mandated warning applies: This information has been disclosed to you from records protected by federal confidentiality rules (42 CFR part 2). The federal rules prohibit you from making any further disclosure of this information unless further disclosure is expressly permitted by the written consent of the person to whom it pertains or as otherwise permitted by 42 CFR part 2. A general authorization for the release of medical or other information is NOT sufficient for this purpose. The Federal rules restrict any use of the information to criminally investigate or prosecute any alcohol or drug abuse patient.The records that you are about to access may contain highly sensitive health information, the redisclosure of which is protected by Article 27-F of the [facility] Public Health law. If you continue you may have access to information: Regarding HIV / AIDS; Provided by facilities licensed or operated by the [facility] Office of Mental Health; or Provided by the [facility] Office for People With Developmental Disabilities. If such information is present, then the following [facility] mandated warning applies: This information has been disclosed to you from confidential records which are protected by state law. State law prohibits you from making any further disclosure of this information without the specific written consent of the person to whom it pertains, or as otherwise permitted by law. Any unauthorized further disclosure in violation of state law may result in a fine or long term sentence or both. A general authorization for the release of medical or other information is NOT sufficient authorization for further disc losure. Family History Family Member Name Family Member Gender Family Member Status Date o f Status Description Data Source(s) Unknown Unknown Problem [facility] ([facility], ) Encounters Encounter Providers Location Date Indications Data Source(s ) Outpatient Attender: Ericka TOLEDOP Main Office 10/24/2020 0 7:45:00 AM EST [facility] ([facility] Outpatient Attender: Cruz Turk MD Main office [facility] 10/08/2020 07:30:00 AM EST [facility] ([facility], ) Outpatient Attender: Ericka TOLEDOP Main Office 09/17/2020 0 8:00:00 AM EST [facility] ([facility] Outpatient Attender: JAZIEL WELLS MD Main Office 09/03/2020 02:45:00 PM EST [facility] ([facility] Outpatient Attender: JAZIEL WELLS MD Main Office 03/05/2020 10:00:00 AM EDT [facility] ([facility]) Outpatient Attender: Angella SUAREZ Main Office 11/05/2019 09:00:0 0 AM EST [facility] ([facility]) Medications Medication Brand Name Start Date Product Form Dose Route Admi nistrative Instructions Pharmacy Instructions Status Indications Reaction Description Data Source(s) 10 mg 10/25/2020 12:00:00 AM EST tablet 60 TAKE ONE TO TWO TABLETS BY MOUTH THREE TIMES A DAY NEEDED FOR ANXIETY TAKE ONE TO TWO TABLETS BY MOUTH THREE TIMES A DAY NEEDED FOR ANXIETY SOLD: 10/27/2020 [facility] 0.5 mg (11)- 1 mg (42) 10/25/2020 12:00:00 AM EST tablets,do se pack 53 TAKE BY MOUTH DAILY DIRECTED TAKE BY MOUTH DAILY DIRECTED SOLD: 10/27/2020 [facility] Hydroxyzine Hydrochloride 10 MG Oral Tablet Hydroxyzine HCL 10/24/2020 12:00:00 AM EST ORAL active [facility] ([facility] Chantix Starting Month Chantix Starting Month Mohit 2020 12:00:00 AM EST active [facility] ([facility] Amitriptyline Hydrochloride 25 MG Oral Tablet AMITRIPTYLINE HCL 10/22/2020 12:00:00 AM EST tablet 60 TAKE TWO TABLETS BY MOUTH EVERY DAY AT BEDTIME TAKE TWO TABLETS BY MOUTH EVERY DAY AT BEDTIME SOLD: 10/27/2020 [facility] Amitriptyline Hydrochloride 50 MG Oral Tablet Amitriptyline HCL 10/08/2020 12:00:00 AM EST ORAL active [facility] ([facility]) rizatriptan 10 MG Disintegrating Oral Tablet Rizatriptan Jared zoate 10/08/2020 12:00:00 AM EST ORAL active [facility] ([facility]) rizatriptan 10 MG Disintegrating Oral Tablet RIZATRIPTAN JARED ZOATE 10/08/2020 12:00:00 AM EST tablet,disintegrating 9 TAKE ONE T ABLET BY MOUTH AT ONSET OF HEADACHE, MAY REPEAT ONCE AFTER 2 HOURS TAKE ONE TABLET BY MOUTH AT ONSET OF HEADACHE, MAY REPEAT ONCE AFTER 2 HOURS SOLD: 10/09/2020 [facility] Naproxen 500 MG Oral Tablet Naproxen 10/08/2020 12:00:00 AM EST ORAL active [facility] ([facility]) 500 mg 10/08/2020 12:00:00 AM EST tablet 30 TAKE ONE TABLET BY MOUTH TWICE A DAY NEEDED FOR HEADACHES TAKE ONE TABLET BY MOUTH TWICE A DAY NEEDED FOR HEADACHES SOLD: 10/09/2020 [facility] Amitriptyline Hydrochloride 25 MG Oral Tablet Amitriptyline HCL 09/17/2020 12:00:00 AM EST ORAL active [facility] ([facility] Amitriptyline Hydrochloride 25 MG Oral Tablet AMITRIPTYLINE HCL 09/17/2020 12:00:00 AM EST tablet 60 TAKE ONE TABLET BY MOUTH AT BEDTIME FOR 1 WEEK THEN INCREASE TO TAKE TWO TABLETS BY MOUTH AT BEDTIME TAKE ONE TABLET BY MOUTH AT BEDTIME FOR 1 WEEK THEN INCREASE TO TAKE TWO TABLETS BY MOUTH AT BEDTIME SOLD: 09/18/2020 [facility] 2.5 % 03/06/2020 12:00:00 AM EDT cream 60 APPLY TOPICALLY TWO TIMES A DAY NEEDED FOR 7-10 DAYS FOR FLARE OF DERMATITIS APPLY TOPICALLY TWO TIMES A DAY NEEDED FOR 7-10 DAYS FOR FLARE OF DERMATITIS SOLD: 03/11/2020 [facility] Hydrocortisone 25 MG/ML Topical Cream Hydrocortisone 03/05/2020 12:00:00 AM EDT active [facility] ( [facility]) Insurance Providers Payer name Policy type / Coverage type Policy ID Covered constitution party ID Covered constitution party's relationship to garza Policy Garza Plan Information [facility] [id number] SP [id number] [facility] [id number] SP [id number] MEDICAID [id number] SP [id number] [facility] [id number] Preferred Provider Organization (PPO) [id number] ANSI-Medicaid [id number] ANSI-Commercial [id number] ANSI-Medicaid [id number] ANSI-Not a Secondary Insurance [id number] ANSI-Medicaid [id number] ANSI-Medicaid [id number] ANSI-Commercial [id number] ANSI-Not a Secondary Insurance [id number] ANSI-Medicaid [id number] ANSI-Medicaid [id number] ANSI-Commercial [id number] ANSI-Not a Secondary Insurance [id number] ANSI-Not a Secondary Insurance [id number] ANSI-Medicaid [id number] ANSI-Commercial [id number] ANSI-Medicaid [id number] [facility] [id number] SP [id number] [facility] [id number] ANSI-Medicaid [id number] ANSI-Not a Secondary Insurance [id number] ANSI-Medicaid [id number] ANSI-Commercial [id number] ANSI-Not a Secondary Insurance [id number] ANSI-Medicaid [id number] ANSI-Commercial [id number] ANSI-Medicaid [id number] ANSI-Medicaid [id number] ANSI-Not a Secondary Insurance [id number] ANSI-Commercial [id number] ANSI-Medicaid [id number] ANSI-Medicaid [id number] ANSI-Medicaid [id number] ANSI-Commercial [id number] ANSI-Not a Secondary Insurance [id number] ANSI-Not a Secondary Insurance [id number] ANSI-Medicaid [id number] ANSI-Commercial [id number] ANSI-Medicaid [id number] [facility] Health Maintenance Organization (HMO) [id number] Self [id number] [facility] [id number] SP [id number] ANSI-Medicaid [id number] ANSI-Not a Secondary Insurance [id number] ANSI-Commercial [id number] ANSI-Medicaid [id number] [employer] MCDO [id number] SP [id number] [employer] MCDO [id number] SP [id number] [employer] MCDO [id number] SP [id number] ANSI-Not a Secondary Insurance [id number] ANSI-Medicaid [id number] ANSI-Medicaid [id number] ANSI-Commercial [id number] ANSI-Medicaid [id number] ANSI-Commercial [id number] ANSI-Medicaid [id number] ANSI-Not a Secondary Insurance [id number] [facility] [id number] ANSI-Commercial [id number] ANSI-Not a Secondary Insurance [id number] ANSI-Medicaid [id number] [facility] Health Maintenance Organization (HMO) [id number] Self [id number] MVP Medicaid Health Maintenance Organization ([facility]) [id number] Self [id number] ANSI-Medicaid [id number] ANSI-Not a Secondary Insurance [id number] ANSI-Commercial [id number] ANSI-Commercial [id number] ANSI-Medicaid [id number] ANSI-Not a Secondary Insurance [id number] ANSI-Medicaid [id number] ANSI-Not a Secondary Insurance [id number] ANSI-Commercial [id number] [employer] MCDHMO [id number] SP [id number] [facility] O [id number] S [id number] [employer] MCDHMO [id number] SP [id number] [facility] [id number] SP [id number] VALUE OPTIONS (MVP) [id number] SP [id number] [employer] PPO O [id number] S [id number] [employer] MCDHMO [id number] SP [id number] [employer] OPTIONS (MVP) [id number] SP [id number] VAL[employer] OPT[employer] (MVP) [id number] SP [id number] [facility] O [id number] S [id number] [facility] [id number] SP [id number] MVP MCDHMO [id number] SP [id number] [facility] [id number] SP [id number] MVP Commercial [id number] Self [id number] [facility] [id number] SP [id number] [facility] [id number] SP [id number] VALUE OPTIONS (MVP) [id number] SP [id number] [facility] [id number] SP [id number] MVP Commercial [id number] Self [id number] [facility] [id number] SP [id number] [facility] [id number] SP [id number] MVP H [id number] Self [id number] [facility] PHY [id number] SP [id number] MVP H [id number] Self [id number] [employer] [place] PPO 302/307 [id number] [place] PPO 302/307 [id number] EXCELLUS H [id number] Spouse [id number] EXCELLUS H [id number] Unkn [id number] ITT [employer] WORK COMP [id number] SP [id number] EXCELLUS H [id number] Self [id number] [employer]BS HMO [place] O [id number] O [id number] ITT [employer]RIANA WORK COMP [id number] SP [id number] Problems, Conditions, and Diagnoses Code Display Name Description Problem Type Effective Dates Data Source(s) 600268626 Low back pain Low back pain Problem 10/08/2020 12:00:00 AM EST [facility] ([facility], ) [id number] Spondylolysis Spondylolysis Problem 10/08/2020 12:00:00 AM EST [facility] ([facility], ) [id number] Cervico-occipital neuralgia Cervico-occipital neuralgi a Problem 10/08/2020 12:00:00 AM EST [facility] ([facility], ) [id number] Neck pain Neck pain Problem 10/08/2020 12:00:00 AM ES T [facility] ([facility], ) [id number] Chronic tension-type headache Chronic tension-type hea dache Problem 10/08/2020 12:00:00 AM EST [facility] ([facility], ) [id number] Chronic intractable migraine without aur a Chronic intractable migraine without aura Problem 10/08/2020 12:00:00 AM EST [facility] ([place] [facility] Surgeries/Procedures Procedure Description Date Indications Data Source(s) Brief Emotional/Behav Assessment W/ Scoring Doc Per Standard Inst 09/17/2020 12:00:00 AM EST [facility] ([facility] Results ID Date Data Source [id number] 10/11/2020 10:29:00 AM EST [facility] ([facility] Name Value Range Interpretation Code Description Data Marilyn rce(s) Supporting Document(s) IgG [Mass/volume] in Serum or Plasma 1120 mg/dL [id number] [facility] ([facility] ID Date Data Source [id number] 10/11/2020 10:29:00 AM EST [facility] ([facility] Name Value Range Interpretation Code Description Data Marilyn rce(s) Supporting Document(s) Glucose, Fasting 88 mg/dL 70-100 [facility] ([facility] Glomerular Filtration Rate Laboratory test result [facility] ([facility] <content>Units are mL/min/1.73 m2</content>
<content></content>
<content>Chronic Kidney Disease Staging per [facility]:</content>
<content></content>
<content>Stage I & II GFR >=60 Normal to Mildly Decreased</content>
<content>Stage III GFR 30- 59 Moderately Decreased</content>
<content>Stage IV GFR 15-29 Severely Decreased</content>
<content>Stage V GFR <15 Very Little GFR Left</content>
<content>ESRD GFR <15 on [employer]CH[employer]ECT</content>
<content></content> Creatinine For GFR 0.96 mg/dL 0.70-1.30 [facility] ([facility] Blood Urea Nitrogen 10 mg/dL 7-18 [facility] ([facility] Chloride Level 107 meq/L 98-107 [facility] ([facility] Sodium Level 139 meq/L 136-145 [facility] Potassium Serum 4.4 meq/L 3.5-5.1 [facility] ([facility] Carbon Dioxide Level 28 meq/L 21-32 [facility] ([facility] Anion Gap 4 meq/L 8-16 [facility] ([facility] Calcium Level 9.0 mg/dL 8.5-10.1 [facility] ([facility] Alt/SGPT 62 U/L 12-78 [facility] Ast/Sgot 23 U/L 7-37 [facility] Alkaline Phosphatase 75 U/L 45-117 [facility] ([facility] Bilirubin,Total 0.5 mg/dL 0.2-1.0 [facility] ([facility] Total Protein 7.1 GM/DL 6.4-8.2 [facility] ([facility] Albumin/Globulin Ratio 1.3 [facility] ([facility] Albumin 4.0 GM/DL 3.2-5.2 [facility] ID Date Data Source [id number] 10/11/2020 10:29:00 AM EST [facility] ([facility] Name Value Range Interpretation Code Description Data Marilyn rce(s) Supporting Document(s) White Blood Count 7.0 10 4.0-10.0 [facility] ([facility] Red Blood Count 5.19 10 4.30-6.10 [facility] Hemoglobin 15.9 g/dL 13.5-17.5 [facility] ([facility] Mean Corpuscular Volume 92.1 fl 80.0-96.0 M [facility] ([facility] Hematocrit 47.8 % 42.0-52.0 [facility] ([facility] Mean Corpuscular HGB Conc 33.3 g/dL 32.0-36.5 [facility] ([facility] Red Cell Distribution Width 12.5 % 11.5-14.5 [facility] ([facility] Mean Corpuscular Hemoglobin 30.6 pg 27.0-33.0 [facility] ([facility] Lymph % 24.0 % 24.0-44.0 [facility] Platelet Count, Automated 262 10 150-450 [facility] ([facility] Neutrophils % 61.7 % 36.0-66.0 [facility] ([facility] Eos % 3.9 % 0.0-3.0 [facility] Andrews % 9.0 % 0.0-5.0 [facility] Nucleated Red Blood Cell % 0.0 % 0-0 [facility] ([facility] Immature Granulocyte % 0.3 % 0-3.0 [facility] ([facility] Baso % 1.1 % 0.0-1.0 [facility] Neutrophils # 4.3 10 1.5-8.5 [facility] Andrews # 0.6 10 0.0-0.8 [facility] Lymph # 1.7 10 1.5-5.0 [facility] Eos # 0.3 10 0.0-0.5 [facility] Baso # 0.1 10 0.0-0.2 [facility] ([facility] ID Date Data Source [id number] 10/11/2020 10:29:00 AM EST [facility] ([facility]) Name Value Range Interpretation Code Description Data Marilyn rce(s) Supporting Document(s) IgG [Mass/volume] in Serum or Plasma 1120 mg/dL [id number] Normal (applies to non- numeric results) [facility] ([facility] ) ID Date Data Source [id number] 10/11/2020 10:29:00 AM EST [facility] ([facility]) Name Value Range Interpretation Code Description Data Marilyn rce(s) Supporting Document(s) Laboratory test finding (navigational concept) 88 mg/dL 7 0-100 Normal (applies to non-numeric results) [facility] ([facility] [place]) Laboratory test finding (navigational concept) 10 mg/dL 7 -18 Normal (applies to non-numeric results) [facility] ([facility] [place]) Laboratory test finding (navigational concept) Laboratory test r esult Normal (applies to non-numeric results) [facility]) <content>Units are mL/min/1.73 m2</content>
<content></content>
<content>Chronic Kidney Disease Staging per [facility]:</content>
<content></content>
<content>Stage I & II GFR >=60 Normal to Mildly Decreased</content>
<content>Stage III GFR 30- 59 Moderately Decreased</content>
<content>Stage IV GFR 15-29 Severely Decreased</content>
<content>Stage V GFR <15 Very Little GFR Left</content>
<content>ESRD GFR <15 on [employer]CH[employer]</content>
<content></content> Laboratory test finding (navigational concept) 0.96 mg/dL 0 .70-1.30 Normal (applies to non-numeric results) [facility] [place]) Laboratory test finding (navigational concept) 139 meq/L 1 36-145 Normal (applies to non-numeric results) [facility] ([facility] [place]) Laboratory test finding (navigational concept) 4.4 meq/L 3 .5-5.1 Normal (applies to non-numeric results) [facility] [place] Laboratory test finding (navigational concept) 107 meq/L 9 8-107 Normal (applies to non-numeric results) [facility] [place] Laboratory test finding (navigational concept) 4 meq/L 8-16 Below low normal [facility] ([facility]) Laboratory test finding (navigational concept) 28 meq/L 2 1-32 Normal (applies to non-numeric results) [facility] [place] Laboratory test finding (navigational concept) 62 U/L 1 2-78 Normal (applies to non-numeric results) [facility] ([facility] [place] Laboratory test finding (navigational concept) 9.0 mg/dL 8 .5-10.1 Normal (applies to non-numeric results) [facility]) Laboratory test finding (navigational concept) 23 U/L 7 -37 Normal (applies to non-numeric results) [facility] [place] Laboratory test finding (navigational concept) 0.5 mg/dL 0 .2-1.0 Normal (applies to non-numeric results) [facility] ([facility]) Laboratory test finding (navigational concept) 75 U/L 4 5-117 Normal (applies to non-numeric results) [facility] ([facility]) Laboratory test finding (navigational concept) 4.0 GM/DL 3 .2-5.2 Normal (applies to non-numeric results) [facility]) Laboratory test finding (navigational concept) 7.1 GM/DL 6 .4-8.2 Normal (applies to non-numeric results) [facility] ([facility]) Laboratory test finding (navigational concept) 1.3 Normal (applies to non- numeric results) [facility] ([facility] ) ID Date Data Source [id number] 10/11/2020 10:29:00 AM EST [facility] ([facility]) Name Value Range Interpretation Code Description Data Marilyn rce(s) Supporting Document(s) Laboratory test finding (navigational concept) 7.0 10 4 .0-10.0 Normal (applies to non-numeric results) [facility] ([facility]) Laboratory test finding (navigational concept) 5.19 10 4 .30-6.10 Normal (applies to non-numeric results) [facility]) Laboratory test finding (navigational concept) 15.9 g/dL 1 3.5-17.5 Normal (applies to non-numeric results) [facility] [place] Laboratory test finding (navigational concept) 30.6 pg 2 7.0-33.0 Normal (applies to non-numeric results) [facility] [place] Laboratory test finding (navigational concept) 92.1 fl 8 0.0-96.0 Normal (applies to non-numeric results) [facility] [place] Laboratory test finding (navigational concept) 47.8 % 4 2.0-52.0 Normal (applies to non-numeric results) [facility] ([facility] [place]) Laboratory test finding (navigational concept) 12.5 % 1 1.5-14.5 Normal (applies to non-numeric results) [facility] ([facility] [place] Laboratory test finding (navigational concept) 262 10 1 50-450 Normal (applies to non-numeric results) [facility] [place] Laboratory test finding (navigational concept) 33.3 g/dL 3 2.0-36.5 Normal (applies to non-numeric results) [facility] [place] Laboratory test finding (navigational concept) 24.0 % 2 4.0-44.0 Normal (applies to non-numeric results) [facility] ([facility] [place] Laboratory test finding (navigational concept) 61.7 % 3 6.0-66.0 Normal (applies to non-numeric results) [facility] ([facility] [place] Laboratory test finding (navigational concept) 9.0 % 0.0-5.0 Above high normal [facility] ([facility] [place]) Laboratory test finding (navigational concept) 3.9 % 0.0-3.0 Above high normal [facility] ([facility] [place]) Laboratory test finding (navigational concept) 0.0 % 0 -0 Normal (applies to non- numeric results) [facility] ([facility] [place] [facility] Laboratory test finding (navigational concept) 0.3 % 0 -3.0 Normal (applies to non-numeric results) [facility] ([facility] [place] Laboratory test finding (navigational concept) 1.1 % 0.0-1.0 Above high normal [facility] ([facility]) Laboratory test finding (navigational concept) 1.7 10 1 .5-5.0 Normal (applies to non-numeric results) [facility] ([facility]) Laboratory test finding (navigational concept) 4.3 10 1 .5-8.5 Normal (applies to non-numeric results) [facility] ([facility]) Laboratory test finding (navigational concept) 0.3 10 0 .0-0.5 Normal (applies to non-numeric results) [facility] ([facility]) Laboratory test finding (navigational concept) 0.1 10 0 .0-0.2 Normal (applies to non-numeric results) [facility] ([facility]) Laboratory test finding (navigational concept) 0.6 10 0 .0-0.8 Normal (applies to non-numeric results) [facility] ([facility]) ID Date Data Source [id number] 10/11/2020 10:24:00 AM EST [facility] ([facility] Name Value Range Interpretation Code Description Data Marilyn rce(s) Supporting Document(s) Folate [Mass/volume] in Serum or Plasma 10.4 ng/mL [facility] FOLATE NORMAL RANGE NORMAL GREATER THAN 5.4 NG/ML INDETERMINATE 3.4-5.4 NG/ML DEFICIENT LESS THAN 3.4 NG/ML Cobalamin (Vitamin B12) [Mass/volume] in Serum or Plasma 545 pg/mL 2 47-911 [facility] ([facility] VITAMIN B12 NORMAL RANGE NORMAL 247 - 911 PG/ML INDETERMINATE 211 - 246 PG/ML DEFICIENT LESS THAN 211 PG/ML ID Date Data Source [id number] 10/11/2020 10:24:00 AM EST [facility] ([facility] Name Value Range Interpretation Code Description Data Marilyn rce(s) Supporting Document(s) Thyroid Stimulating Hormone 1.010 uIU/ML 0.358-3.740 [facility] ([facility] Free T4 0.99 ng/dL 0.76-1.46 [facility] ([facility] ID Date Data Source [id number] 10/11/2020 10:24:00 AM EST [facility] ([facility] Name Value Range Interpretation Code Description Data Marilyn rce(s) Supporting Document(s) Cholesterol Level 211 mg/dL [facility] ([facility] Triglycerides Level 101 mg/dL [facility] ([facility] Non-HDL-C 164 mg/dL [facility] HDL Cholesterol 47 mg/dL [facility] LDL Cholesterol 144 mg/dL [facility] Cholesterol Risk Ratio 4.489 [facility] ([facility] ID Date Data Source [id number] 10/11/2020 10:24:00 AM EST [facility] ([facility] Name Value Range Interpretation Code Description Data Marilyn rce(s) Supporting Document(s) Laboratory test finding (navigational concept) 17.9 ng/mL 5.2-72.1 [facility] ([facility] Laboratory test finding (navigational concept) Laboratory test resu lt 0.0-5.0 [facility] ([facility] ID Date Data Source [id number] 10/11/2020 10:24:00 AM EST [facility] ([facility] Name Value Range Interpretation Code Description Data Marilyn rce(s) Supporting Document(s) Niacin [Mass/volume] in Serum or Plasma Laboratory test result [facility] ([facility] Pyridoxine [Mass/volume] in Serum or Plasma 5.5 ug/L 5.3-46.7 [facility] ([facility] Specimen Comment: Test(s) [id number] amide; [id number]-Lbirkckon Acid; [id number] Specimen Comment: Vitamin B6; [id number]-Vmd. B1, Whole Blood Specimen Comment: was developed and its performance characteristics Specimen Comment: determined by [facility]. It has not been cleared or approved Specimen Comment: by the Food and Drug Administration. Thiamine [Mass/volume] in Blood 141.9 nmol/L 66.5-200.0 [facility] ([facility] Performed at: [address] [id number] [address] Covering Installer: Alan Tineo MD, Phone: [phone] ID Date Data Source [id number] 10/11/2020 10:24:00 AM EST [facility] ([facility] Name Value Range Interpretation Code Description Data Marilyn rce(s) Supporting Document(s) Glucose, Fasting 87 mg/dL 70-100 [facility] Blood Urea Nitrogen 11 mg/dL 7-18 [facility] ([facility] Creatinine For GFR 0.94 mg/dL 0.70-1.30 [facility] ([facility] Glomerular Filtration Rate Laboratory test result [facility] ([facility] <content>Units are mL/min/1.73 m2</content>
<content></content>
<content>Chronic Kidney Disease Staging per [facility]:</content>
<content></content>
<content>Stage I & II GFR >=60 Normal to Mildly Decreased</content>
<content>Stage III GFR 30- 59 Moderately Decreased</content>
<content>Stage IV GFR 15-29 Severely Decreased</content>
<content>Stage V GFR <15 Very Little GFR Left</content>
<content>ESRD GFR <15 on [employer]CHITECT</content>
<content></content> Sodium Level 141 meq/L 136-145 [facility] Potassium Serum 4.4 meq/L 3.5-5.1 [facility] Chloride Level 106 meq/L 98-107 [facility] Anion Gap 7 meq/L 8-16 [facility] Calcium Level 9.5 mg/dL 8.5-10.1 [facility] ([facility] Carbon Dioxide Level 28 meq/L 21-32 [facility] ([facility] Alkaline Phosphatase 73 U/L 45-117 [facility] Ast/Sgot 22 U/L 7-37 [facility] Alt/SGPT 59 U/L 12-78 [facility] Total Protein 7.2 GM/DL 6.4-8.2 [facility] ([facility] Bilirubin,Total 0.5 mg/dL 0.2-1.0 [facility] Albumin/Globulin Ratio 1.3 [facility] Albumin 4.0 GM/DL 3.2-5.2 [facility] ID Date Data Source [id number] 10/11/2020 10:24:00 AM EST [facility] ([facility] Name Value Range Interpretation Code Description Data Marilyn rce(s) Supporting Document(s) Red Blood Count 5.11 10 4.30-6.10 [facility] ([facility] White Blood Count 7.0 10 4.0-10.0 [facility] ([facility] Hematocrit 46.2 % 42.0-52.0 [facility] ([facility] Hemoglobin 15.6 g/dL 13.5-17.5 [facility] ([facility] Mean Corpuscular HGB Conc 33.8 g/dL 32.0-36.5 [facility] ([facility] Mean Corpuscular Hemoglobin 30.5 pg 27.0-33.0 [facility] Mean Corpuscular Volume 90.4 fl 80.0-96.0 M [facility] ([facility] Neutrophils % 61.6 % 36.0-66.0 [facility] Platelet Count, Automated 256 10 150-450 [facility] Red Cell Distribution Width 12.6 % 11.5-14.5 [facility] Eos % 3.9 % 0.0-3.0 [facility] ([facility] Andrews % 9.4 % 0.0-5.0 [facility] ([facility] Lymph % 24.0 % 24.0-44.0 [facility] Immature Granulocyte % 0.1 % 0-3.0 [facility] ([facility] Baso % 1.0 % 0.0-1.0 [facility] Nucleated Red Blood Cell % 0.0 % 0-0 [facility] ([facility] Neutrophils # 4.3 10 1.5-8.5 [facility] ([facility] Lymph # 1.7 10 1.5-5.0 [facility] ([facility] Baso # 0.1 10 0.0-0.2 [facility] ([facility] Andrews # 0.7 10 0.0-0.8 [facility] ([facility] Eos # 0.3 10 0.0-0.5 [facility] ([facility] ID Date Data Source [id number] 10/11/2020 10:24:00 AM EST [facility] ([facility] Name Value Range Interpretation Code Description Data Marilyn rce(s) Supporting Document(s) Thyroxine (T4) free [Mass/volume] in Serum or Plasma Laboratory madhuri t result [facility] ([facility] Thyrotropin [Units/volume] in Serum or Plasma Laboratory test result [facility] ([facility] ID Date Data Source [id number] 10/23/2019 11:13:00 AM EST [facility] ([facility] [place]) Name Value Range Interpretation Code Description Data Marilyn rce(s) Supporting Document(s) IgD [Mass/volume] in Serum Laboratory test result Normal (applies to non- numeric results) [facility] ([facility] [place] ) Performed at: [address] [id number] [address] Covering Installer: Alan Tineo MD, Phone: [phone] ID Date Data Source [id number] 10/23/2019 11:13:00 AM EST [facility] ([facility] [place]) Name Value Range Interpretation Code Description Data Marilyn rce(s) Supporting Document(s) Laboratory test finding (navigational concept) 61.3 % 3 6.0-66.0 Normal (applies to non-numeric results) [facility] ([facility] [place]) Laboratory test finding (navigational concept) 26.7 % 2 4.0-44.0 Normal (applies to non-numeric results) [facility] ([facility] [place] Laboratory test finding (navigational concept) 8.4 % 0.0-5.0 Above high normal [facility] ([facility] [place]) Laboratory test finding (navigational concept) 1.9 % 0 .0-3.0 Normal (applies to non-numeric results) [facility] ([facility] [place] Laboratory test finding (navigational concept) 1.4 % 0.0-1.0 Above high normal [facility] ([facility] [place]) Laboratory test finding (navigational concept) 0.3 % 0 -3.0 Normal (applies to non-numeric results) [facility] [place] Laboratory test finding (navigational concept) 4.9 10 1 .5-8.5 Normal (applies to non-numeric results) [facility] ([facility]) Laboratory test finding (navigational concept) 2.1 10 1 .5-5.0 Normal (applies to non-numeric results) [facility] ([facility]) Laboratory test finding (navigational concept) 0.1 10 0 .0-0.2 Normal (applies to non-numeric results) [facility] ([facility]) Laboratory test finding (navigational concept) 0.2 10 0 .0-0.5 Normal (applies to non-numeric results) [facility] ([facility]) Laboratory test finding (navigational concept) 0.7 10 0 .0-0.8 Normal (applies to non-numeric results) [facility] ([facility]) ID Date Data Source [id number] 10/23/2019 11:13:00 AM EST [facility] ([facility]) Name Value Range Interpretation Code Description Data Marilyn rce(s) Supporting Document(s) Laboratory test finding (navigational concept) 8.0 10 4 .0-10.0 Normal (applies to non-numeric results) [facility] ([facility] [place]) Laboratory test finding (navigational concept) 15.3 g/dL 1 3.5-17.5 Normal (applies to non-numeric results) [facility] [place] Laboratory test finding (navigational concept) 5.21 10 4 .30-6.10 Normal (applies to non-numeric results) [facility] ([facility] [place] Laboratory test finding (navigational concept) 45.7 % 4 2.0-52.0 Normal (applies to non-numeric results) [facility] ([facility] [place]) Laboratory test finding (navigational concept) 87.7 fl 8 0.0-96.0 Normal (applies to non-numeric results) [facility] ([facility] [place] Laboratory test finding (navigational concept) 33.5 g/dL 3 2.0-36.5 Normal (applies to non-numeric results) [facility] [place] Laboratory test finding (navigational concept) 29.4 pg 2 7.0-33.0 Normal (applies to non-numeric results) [facility] ([facility] [place] Laboratory test finding (navigational concept) 13.2 % 1 1.5-14.5 Normal (applies to non-numeric results) [facility] ([facility] [place] Laboratory test finding (navigational concept) 243 10 1 50-450 Normal (applies to non-numeric results) [facility] ([facility]) Laboratory test finding (navigational concept) 0.0 % 0 -0 Normal (applies to non- numeric results) [facility] ([facility] [place] ) ID Date Data Source [id number] 10/23/2019 11:13:00 AM EST [facility] ([facility] [place]) Name Value Range Interpretation Code Description Data Marilyn rce(s) Supporting Document(s) Laboratory test finding (navigational concept) 19.6 mg/dL 7 0-400 Below low normal [facility] ([facility] [place] ) /LIGA Laboratory test finding (navigational concept) 22.0 mg/dL 4 0-230 Below low normal [facility] ([facility] [place] ) Laboratory test finding (navigational concept) 755 mg/dL 6 81-1648 Normal (applies to non-numeric results) [facility] [place] Procedure Vital Signs ID Date Data Source [id number] Name Value Range Interpretation Code Description Data Source(s) Body mass index (BMI) [Ratio] 25.8 kg/m2 25.8 k g/m2 [facility] [place] body weight 148 [lb_av] 148 [lb_av] [facility] ([facility] Oxygen saturation in Arterial blood by Pulse oximetry 100 % 100 % [facility] ([facility] Body weight 164.50 [lb_av] 164.50 [lb_av] [facility] ([facility] Body height 67.0 [in_i] 67.0 [in_i] [facility] ([facility] 5'7" Respiratory rate 18 /min 18 /min [facility] ( [facility] Body temperature 97.6 [degF] 97.6 [degF] [facility] ([facility] Heart rate 85 /min 85 /min [facility] ([facility] Diastolic blood pressure 75 mm[Hg] 75 mm[Hg] [facility] Systolic blood pressure 136 mm[Hg] 136 mm[Hg] [facility] ([facility] [place] body weight 148 [lb_av] 148 [lb_av] [facility] T ([facility], ) Body mass index (BMI) [Ratio] 25.1 kg/m2 25.1 k g/m2 [facility] ([facility]) Body weight 160.00 [lb_av] 160.00 [lb_av] [facility] T ([facility]) Body height 67 [in_i] 67 [in_i] [facility] ([facility]) 5'7" Respiratory rate 14 /min 14 /min [facility] ( [facility], ) Heart rate 78 /min 78 /min [facility] ([facility], ) Diastolic blood pressure 70 mm[Hg] 70 mm[Hg] [facility] ([facility], ) Systolic blood pressure 100 mm[Hg] 100 mm[Hg] M [facility] ([facility]) Body mass index (BMI) [Ratio] 24.5 kg/m2 24.5 k g/m2 [facility] [place] body weight 148 [lb_av] 148 [lb_av] [facility] ([facility] Oxygen saturation in Arterial blood by Pulse oximetry 98 % 98 % [facility] ([facility] Body weight 156.50 [lb_av] 156.50 [lb_av] [facility] ([facility] Body height 67.0 [in_i] 67.0 [in_i] [facility] ([facility] 5'7" Respiratory rate 16 /min 16 /min [facility] ( [facility] Body temperature 96.9 [degF] 96.9 [degF] [facility] ([facility] Heart rate 91 /min 91 /min [facility] ([facility] Diastolic blood pressure 84 mm[Hg] 84 mm[Hg] [facility] ([facility] Systolic blood pressure 147 mm[Hg] 147 mm[Hg] M [facility] ([facility] Diastolic blood pressure 88 mm[Hg] 88 mm[Hg] [facility] ([facility] Systolic blood pressure 165 mm[Hg] 165 mm[Hg] [facility] ([facility] Body mass index (BMI) [Ratio] 25.3 kg/m2 25.3 k g/m2 [facility] ([facility]) Diastolic blood pressure 76 mm[Hg] 76 mm[Hg] [facility] ([facility]) Systolic blood pressure 155 mm[Hg] 155 mm[Hg] [facility] ([facility]) Respiratory rate 18 /min 18 /min [facility] ( [facility]) Heart rate 88 /min 88 /min [facility] ([facility] Body height 66.5 [in_i] 66.5 [in_i] [facility] ([facility] 5'6.50" Body weight 159.38 [lb_av] 159.38 [lb_av] [facility] T ([facility]) Body mass index (BMI) [Ratio] 25.8 kg/m2 25.8 k g/m2 [facility] ([facility]) Diastolic blood pressure 62 mm[Hg] 62 mm[Hg] [facility] ([facility]) Systolic blood pressure 118 mm[Hg] 118 mm[Hg] M [facility] ([facility]) Respiratory rate 16 /min 16 /min [facility] ( [facility]) Heart rate 83 /min 83 /min [facility] ([facility] Body height 67 [in_i] 67 [in_i] [facility] ([facility] 5'7" Body weight 165.00 [lb_av] 165.00 [lb_av] [facility] T ([facility]) Body mass index (BMI) [Ratio] 26.4 kg/m2 26.4 k g/m2 [facility] ([facility]) Diastolic blood pressure 78 mm[Hg] 78 mm[Hg] [facility] ([facility]) Systolic blood pressure 117 mm[Hg] 117 mm[Hg] [facility] ([facility]) Respiratory rate 20 /min 20 /min [facility] ( [facility]) Heart rate 92 /min 92 /min [facility] ([facility] Body height 67 [in_i] 67 [in_i] [facility] ([facility] 5'7" Body weight 168.38 [lb_av] 168.38 [lb_av] APOLONIA Crow ([facility])
[2020-11-06] MEDS ORDERED: NS 1,000 ML IV ONE (20:30)
[2020-11-06 21:15] LABS: BASO # 0.1 10^3/uL (0.0-0.2); BASO % 0.8 % (0.0-1.0); EOS # 0.1 10^3/uL (0.0-0.5); EOS % 1.2 % (0.0-3.0); HEMATOCRIT 45.6 % (42.0-52.0); HEMOGLOBIN 15.6 g/dl (13.5-17.5); LYMPH # 1.6 10^3/uL (1.5-5.0); LYMPH % 20.2 % (24.0-44.0); MEAN CORPUSCULAR HEMOGLOBIN 30.3 pg (27.0-33.0); MEAN CORPUSCULAR HGB CONC 34.2 g/dl (32.0-36.5); MEAN CORPUSCULAR VOLUME 88.5 fl (80.0-96.0); MONO # 0.8 10^3/uL (0.0-0.8); NEUTROPHILS # 5.2 10^3/uL (1.5-8.5); NEUTROPHILS % 67.5 % (36.0-66.0); PLATELET COUNT, AUTOMATED 284 10^3/uL (150-450); RED BLOOD COUNT 5.15 10^6/uL (4.30-6.10); WHITE BLOOD COUNT 7.7 10^3/uL (4.0-10.0)
[2020-11-06 21:43] LABS: RSV AMPLIFICATION NEGATIVE (NEGATIVE)
[2020-11-06 21:51] LABS: ACETAMINOPHEN LEVEL < 2.0 UG/ML (10.0-30.0); ALBUMIN 4.3 GM/DL (3.2-5.2); ALT/SGPT 40 U/L (12-78); BILIRUBIN,DIRECT 0.1 MG/DL (0.0-0.2); BILIRUBIN,TOTAL 0.7 MG/DL (0.2-1.0); BLOOD UREA NITROGEN 10 MG/DL (7-18); CALCIUM LEVEL 9.1 MG/DL (8.5-10.1); CARBON DIOXIDE LEVEL 30 MEQ/L (21-32); CHLORIDE LEVEL 105 MEQ/L (98-107); CK-MB VALUE MASS < 1.0 NG/ML (<3.6); CPK CREATINE PHOSPHOKINASE 69 U/L (39-308); CREATININE FOR GFR 0.96 MG/DL (0.70-1.30); ETHYL ALCOHOL (ETHANOL) 0.006 % (0.000-0.010); GLOMERULAR FILTRATION RATE > 60.0 (>60); GLUCOSE, FASTING 96 MG/DL (70-100); MB/CK RELATIVE INDEX 1.45 (< OR =4); SODIUM LEVEL 142 MEQ/L (136-145); TOTAL PROTEIN 7.7 GM/DL (6.4-8.2); TROPONIN I < 0.02 NG/ML (< 0.10)
--- NOTE | 2020-11-06 21:57 | REPVR ---
PROCEDURE INFORMATION: Exam: CT Head without Contrast Exam date and time: 11/06/20 (8:38pm) Age: 40 years old Clinical indication: Altered mental status / memory loss TECHNIQUE: Imaging protocol: Computed tomography of the head without contrast. Radiation optimization: All CT scans at this facility use at least one of these dose optimization techniques: automated exposure control; mA and/or kV adjustment per patient size (includes targeted exams where dose is matched to clinical indication); or iterative reconstruction. COMPARISON: CT BRAIN LAB SINUSES of 04/26/18 FINDINGS: Brain: Unremarkable. No acute emorrhage. Unremarkable white matter. No mass effect. Cerebral ventricles: No ventriculomegaly. Bones/joints: Unremarkable. No acute fracture. Paranasal sinuses: Visualized sinuses are unremarkable. No air-fluid levels. Mastoid air cells: Visualized mastoid air cells are well aerated. Soft tissues: Unremarkable. IMPRESSION: No acute intracranial pathology is appreciated. Electronically signed by: Cyn Díaz On 11/06/2020 21:57:09 PM
[2020-11-06 22:04] LABS: AMPHETAMINES LEVEL URINE NEGATIVE (NEGATIVE); BARBITURATES URINE NEGATIVE (NEGATIVE); BENZODIAZEPINES URINE NEGATIVE (NEGATIVE); CANNABINOIDS URINE NEGATIVE (NEGATIVE); COCAINE METABOLITE URINE NEGATIVE (NEGATIVE); METHADONE URINE NEGATIVE (NEGATIVE); OPIATES URINE NEGATIVE (NEGATIVE); PHENCYCLIDINE URINE NEGATIVE (NEGATIVE)
--- NOTE | 2020-11-06 22:04 | REPVR ---
PROCEDURE INFORMATION: Exam: XR Chest, 1 View Exam date and time: 11/06/20 (8:39pm) Age: 40 years old Clinical indication: SOB. AMS. TECHNIQUE: Imaging protocol: Portable CXR Views: 1 view COMPARISON: No relevant prior studies available FINDINGS: Lungs: Unremarkable. No consolidation. Pleural spaces: Unremarkable. No pleural effusion. No pneumothorax. Heart/Mediastinum: Unremarkable. No cardiomegaly. Bones/joints: Unremarkable. Soft tissues: Bilateral nipple rings. IMPRESSION: No acute findings. Clear lung apple. Electronically signed by: Cyn Díaz On 11/06/2020 22:04:25 PM
--- OUTSIDE RECORDS SUMMARY | 2020-11-06 23:30 | CCD ---
Author Author [facility] Organization [facility] Address Unknown Phone Unavailable Support Name Relationship Address Phone [facility] Next Of Kin [address] [facility] [address] [place] [address] OD GREENS Next Of Kin [address] [place] [address] O.D. HANNON Next Of Kin [address] [place] [address] O.D. HANNON [facility] Next Of Kin [address] [place] [address] OD GREEN Next Of Kin [address] [place] [address] O.D. 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 Next [place] Kin [address] [place] [address] OD HANNON Next Of Kin [address] [place] [address] DAVID GARCIA Next Of Kin [address] [place] [id number] David Garcia [place] [id number] GUILHERME CURTISANNE [facility] [address] [place] [address] Unavailable Care Team Providers Care Cafeteria Helper Name Role Phone JAZIEL WELLS MD Unavailable [...] CHROSTJAZIEL WOLFE MD Unavailable Unavailable Pleskach, Ericka BAND CUTTER Unavailable Unavailable Pleskach, Ericka BAND CUTTER Unavailable Unavailable Pleskach, Ericka BAND CUTTER Unavailable Unavailable Pleskach, Ericka BAND CUTTER Unavailable Unavailable Pleskach, Ericka BAND CUTTER Unavailable Unavailable Pleskach, Ericka BAND CUTTER Unavailable Unavailable Pleskach, Ericka BAND CUTTER Unavailable Unavailable Pleskach, Ericka BAND CUTTER Unavailable Unavailable Pleskach, Ericka BAND CUTTER Unavailable Unavailable Pleskach, Ericka BAND CUTTER Unavailable Unavailable Pleskach, Ericka BAND CUTTER Unavailable Unavailable Pleskach, Ericka BAND CUTTER Unavailable Unavailable Pleskach, Ericka BAND CUTTER Unavailable Unavailable Pleskach, Ericka BAND CUTTER Unavailable Unavailable Pleskach, Ericka BAND CUTTER Unavailable Unavailable Pleskach, Ericka BAND CUTTER Unavailable Unavailable Pleskach, Ericka BAND CUTTER Unavailable Unavailable Pleskach, Ericka BAND CUTTER Unavailable Unavailable Pleskach, Ericka BAND CUTTER Unavailable Unavailable Pleskach, Ericka BAND CUTTER Unavailable Unavailable Pleskach, Ericka BAND CUTTER Unavailable Unavailable Pleskach, Ericka BAND CUTTER Unavailable Unavailable Pleskach, Ericka BAND CUTTER Unavailable Unavailable Pleskach, Ericka BAND CUTTER Unavailable Unavailable Pleskach, Ericka BAND CUTTER Unavailable Unavailable Pleskach, Ericka BAND CUTTER Unavailable Unavailable Pleskach, Ericka BAND CUTTER Unavailable Unavailable Pleskach, Ericka BAND CUTTER Unavailable Unavailable Pleskach, Ericka BAND CUTTER Unavailable Unavailable Pleskach, Ericka BAND CUTTER Unavailable Unavailable Aline, L Angella PAYROLL ASSISTANT Unavailable Unavailable Aline, L Angella PAYROLL ASSISTANT Unavailable Unavailable Aline, L Angella PAYROLL ASSISTANT Unavailable Unavailable Aline, L Angella PAYROLL ASSISTANT Unavailable Unavailable Emma, L Angella PAYROLL ASSISTANT Unavailable Unavailable Aline, L Angella PAYROLL ASSISTANT Unavailable Unavailable Emma, L Angella PAYROLL ASSISTANT Unavailable Unavailable Emma, L Angella PAYROLL ASSISTANT Unavailable Unavailable Emma, L Angella PAYROLL ASSISTANT Unavailable Unavailable Aline, L Angella PAYROLL ASSISTANT Unavailable Unavailable Emma, L Angella PAYROLL ASSISTANT Unavailable Unavailable Aline, L Angella PAYROLL ASSISTANT Unavailable Unavailable Emma, L Angella PAYROLL ASSISTANT Unavailable Unavailable Emma, L Angella PAYROLL ASSISTANT Unavailable Unavailable Emma, L Angella PAYROLL ASSISTANT Unavailable Unavailable Emma, L Angella PAYROLL ASSISTANT Unavailable Unavailable Aline, L Angella PAYROLL ASSISTANT Unavailable Unavailable Emma, L Angella PAYROLL ASSISTANT Unavailable Unavailable Aline, L Angella PAYROLL ASSISTANT Unavailable Unavailable Aline, L Angella PAYROLL ASSISTANT Unavailable Unavailable Aline, L Angella PAYROLL ASSISTANT Unavailable Unavailable Aline, L Angella PAYROLL ASSISTANT Unavailable Unavailable Emma, L Angella PAYROLL ASSISTANT Unavailable Unavailable Emma, L Angella PAYROLL ASSISTANT Unavailable Unavailable Aline, L Angella PAYROLL ASSISTANT Unavailable Unavailable Emma, L Angella PAYROLL ASSISTANT Unavailable Unavailable Aline, L Angella PAYROLL ASSISTANT Unavailable Unavailable Emma, L Angella PAYROLL ASSISTANT Unavailable Unavailable Aline, L Angella PAYROLL ASSISTANT Unavailable Unavailable Emma, L Angella PAYROLL ASSISTANT Unavailable Unavailable Aline, L Angella PAYROLL ASSISTANT Unavailable Unavailable Aline, L Angella PAYROLL ASSISTANT Unavailable Unavailable Aline, L Angella PAYROLL ASSISTANT Unavailable Unavailable Ali, Cruz MD Unavailable Unavailable [...] is protected by Article 27-F of the [facility] Public Health law. If you continue you may have access to information: Regarding HIV / AIDS; Provided by facilities licensed or operated by the [facility] Office of Mental Health; or Provided by the [facility] Office for People With Developmental Disabilities. If such information is present, then the following [facility] mandated warning applies: This information has been [...] law may result in a fine or chcf sentence or both. A general authorization for the release of medical or other information is NOT sufficient authorization for further disc losure. Family History Family Member Name Family Member Gender Family Member Status Date o f Status Description Data Source(s) Unknown Unknown Problem [facility] ([facility], ) Encounters Encounter Providers Location Date Indications Data Source(s ) Outpatient Attender: Ericka TOLEDOP Main Office 10/24/2020 0 7:45:00 AM EST [facility] ([facility] Outpatient Attender: Cruz Turk MD Main office [facility]3] 10/08/2020 07:30:00 AM EST [facility] ([facility], ) Outpatient Attender: Ericka TOLEDOP Main Office [...] EST MED[facility] ([facility]) Medications Medication Brand Name Start Date Product [...] 12:00:00 AM EST ORAL active M EDENT ([facility]) rizatriptan 10 MG Disintegrating Oral Tablet Rizatriptan Jared zoate 10/08/2020 12:00:00 AM EST ORAL active M EDENT ([facility]) rizatriptan 10 MG Disintegrating [...] 10/08/2020 12:00:00 AM EST ORAL active MED[facility] ([facility]) 500 mg 10/08/2020 12:00:00 AM [...] [facility] ( [facility]) Insurance Providers Payer name Policy type / Coverage type Policy ID Covered democrat ID Covered democrat's relationship to garza Policy Garza Plan Information [facility] COMMUNITY PLAN [facility] [id number] SP [id number] [facility] PLAN [facility] [id number] SP [id number] MEDICAID [id number] SP [id number] [facility] [id number] Preferred Provider Organization (PPO) [id number] ANSI-Medicaid [id number] ANSI-Commercial [id number] ANSI-Medicaid [id number] ANSI-Not a Secondary Insurance [id number] ANSI-Medicaid [id number] ANSI-Medicaid [id number] ANSI-Commercial [id number] ANSI-Not a Secondary Insurance [id number] ANSI-Medicaid [id number] ANSI-Medicaid [id number] ANSI-Commercial [id number] ANSI-Not a Secondary Insurance [id number] ANSI-Not a Secondary Insurance [id number] ANSI-Medicaid [id number] ANSI-Commercial [id number] ANSI-Medicaid [id number] [facility] COMMUNITY [facility]AN [facility] [id number] SP [id number] [facility] [id number] ANSI-Medicaid [id number] ANSI-Not a Secondary Insurance [id number] ANSI-Medicaid [id number] ANSI-Commercial [id number] ANSI-Not a Secondary Insurance [id number] ANSI-Medicaid [id number] ANSI-Commercial [id number] ANSI-Medicaid [id number] ANSI-Medicaid [id number] ANSI-Not a Secondary Insurance [id number] ANSI-Commercial [id number] ANSI-Medicaid [id number] ANSI-Medicaid [id number] ANSI-Medicaid [id number] ANSI-Commercial [id number] ANSI-Not a Secondary Insurance [id number] ANSI-Not a Secondary Insurance [id number] ANSI-Medicaid [id number] ANSI-Commercial [id number] ANSI-Medicaid [id number] [facility] Health Maintenance Organization (HMO) [id number] Self [id number] [facility] [id number] SP [id number] ANSI-Medicaid [id number] ANSI-Not a Secondary Insurance [id number] ANSI-Commercial [id number] ANSI-Medicaid [id number] MVP MCDO [id number] SP [id number] MVP MCDO [id number] SP [id number] MVP MCDO [id number] SP [id number] 8000 ANSI-Not a Secondary Insurance [id number] ANSI-Medicaid [id number] ANSI-Medicaid [id number] ANSI-Commercial [id number] ANSI-Medicaid [id number] ANSI-Commercial [id number] ANSI-Medicaid [id number] ANSI-Not a Secondary Insurance [id number] [facility] [id number] ANSI-Commercial [id number] ANSI-Not a Secondary Insurance [id number] ANSI-Medicaid [id number] [facility] Health Maintenance Organization (HMO) [id number] Self [id number] MVP Medicaid Health Maintenance Organization ([facility]) [id number] Self [id number] ANSI-Medicaid [id number] ANSI-Not a Secondary Insurance [id number] ANSI-Commercial [id number] ANSI-Commercial [id number] ANSI-Medicaid [id number] ANSI-Not a Secondary Insurance [id number] ANSI-Medicaid [id number] ANSI-Not a Secondary Insurance [id number] ANSI-Commercial [id number] MVP MCDHMO [id number] SP [id number] [facility] O [id number] S [id number] MVP MCDHMO [id number] SP [id number] [facility] [id number] SP [id number] VALUE OPTIONS (MVP) [id number] SP [id number] [employer] PPO O [id number] S [id number] MVP MCDHMO [id number] SP [id number] VALUE OPTIONS (MVP) [id number] SP [id number] VALUE OPTIONS (MVP) [id number] SP [id number] [facility] O [id number] S [id number] [facility] [id number] SP [id number] MVP MCDHMO [id number] SP [id number] [facility] [id number] SP [id number] MVP Commercial [id number] Self [id number] [facility] [id number] SP [id number] [facility] [id number] SP [id number] VALUE OPTIONS (MVP) [id number] SP [id number] [facility] [id number] SP [id number] MVP Commercial [id number] Self [id number] [facility] [id number] SP [id number] [facility] [id number] SP [id number] MVP H [id number] Self [id number] [facility] PHY [id number] SP [id number] MVP H [id number] Self [id number] [employer] [place] PPO 302/307 [id number] [employer] [place] PPO 302/307 [id number] EXCELLUS H [id number] Spouse [id number] EXCELLUS H [id number] Unkn [id number] ITT ADRIANA WORK COMP [id number] SP [id number] EXCELLUS H [id number] Self [id number] BCBS HMO [place] O [id number] O [id number] ITT ADRIANA WORK COMP [id number] SP [id number] Problems, Conditions, and Diagnoses Code Display Name Description Problem Type Effective Dates Data Source(s) 852984184 Low back pain Low back pain Problem 10/08/2020 12:00:00 AM EST MED[facility] ([facility] [id number] Spondylolysis Spondylolysis Problem 10/08/2020 12:00:00 AM EST MED[facility] ([facility] [id number] Cervico-occipital neuralgia Cervico-occipital neuralgi a Problem 10/08/2020 12:00:00 AM EST [facility] ([facility] [id number] Neck pain Neck pain Problem 10/08/2020 12:00:00 AM ES T MED[facility] ([facility] [id number] Chronic tension-type headache Chronic tension-type hea dache Problem 10/08/2020 12:00:00 AM EST [facility] ([facility], ) [id number] Chronic intractable migraine without aur a Chronic intractable migraine without aura Problem 10/08/2020 12:00:00 AM EST [facility] ([facility] ) Surgeries/Procedures Procedure Description Date Indications Data Source(s) Brief Emotional/Behav Assessment W/ Scoring Doc Per Standard Inst 09/17/2020 12:00:00 AM EST [facility] ([facility] Results ID Date Data Source [id number] 10/11/2020 10:29:00 AM EST [facility] ([facility] Name Value Range Interpretation Code Description Data Marilyn rce(s) Supporting Document(s) IgG [Mass/volume] in Serum or Plasma 1120 mg/dL [phone] [facility] ([facility] ID Date Data Source [id number] 10/11/2020 10:29:00 AM EST MED[facility] ([facility] [...] Little GFR Left</content>
<content>ESRD GFR <15 on VETERINARY VIRUS SERUM INSPECTOR</content>
<content></content> Creatinine For GFR 0.96 mg/dL 0.70-1.30 [...] [facility] ID Date Data Source [id number] 10/11/2020 10:29:00 AM EST MED[facility] ([facility] [...] % 0.0-3.0 [facility] ([facility] Conway % 9.0 % 0.0-5.0 [facility] ([facility] Nucleated Red Blood Cell % 0.0 % 0-0 MED ENT ([facility] Immature Granulocyte % 0.3 % 0-3.0 [facility] ([facility] Baso % 1.1 % 0.0-1.0 [facility] ([facility] Neutrophils # 4.3 10 1.5-8.5 [facility] ([facility] Conway # 0.6 10 0.0-0.8 [facility] ([facility] Lymph # 1.7 10 1.5-5.0 [facility] ([facility] Eos # 0.3 10 0.0-0.5 [facility] ([facility] Baso # 0.1 10 0.0-0.2 [facility] ([facility] ID Date Data Source [id number] 10/11/2020 10:29:00 AM EST [facility] ([facility]) Name Value Range Interpretation Code Description Data Marilyn rce(s) Supporting Document(s) IgG [Mass/volume] in Serum or Plasma 1120 mg/dL [phone] Normal (applies to non- numeric results) [facility] ([facility] ) ID Date Data Source [id number] 10/11/2020 10:29:00 AM EST MED[facility] ([facility]) Name Value Range Interpretation Code Description Data [...] [facility] ([facility]) <content>Units are mL/min/1.73 m2</content>
<content></content>
<content>Chronic Kidney Disease Staging per NKF:</content>
<content></content>
<content>Stage I & II GFR >=60 Normal to Mildly Decreased</content>
<content>Stage III GFR 30- 59 Moderately Decreased</content>
<content>Stage IV GFR 15-29 Severely Decreased</content>
<content>Stage V GFR <15 Very Little GFR Left</content>
<content>ESRD GFR <15 on VETERINARY VIRUS SERUM INSPECTOR</content>
<content></content> Laboratory test finding (navigational concept) 0.96 [...] [facility] ([facility]) Laboratory test finding (navigational concept) 23 U/L 7 -37 Normal (applies to non-numeric results) [facility] ([facility] Laboratory test finding (navigational concept) 0.5 mg/dL 0 .2-1.0 Normal (applies to non-numeric results) [facility] ([facility]) Laboratory test finding (navigational concept) 75 U/L [...] [facility] ([facility]) Laboratory test finding (navigational concept) 1.3 Normal (applies to non- numeric results) [facility] ([facility] ) ID Date Data Source [id number] 10/11/2020 10:29:00 AM EST [facility] ([facility]) Name Value Range Interpretation Code Description Data [...] high normal [facility] ([facility]) Laboratory test finding (navigational concept) 1.7 10 1 .5-5.0 Normal (applies to non-numeric results) [facility] ([facility]) Laboratory test finding (navigational concept) 4.3 10 1 .5-8.5 Normal (applies to non-numeric results) [facility] ([facility]) Laboratory test finding (navigational concept) 0.3 10 0 .0-0.5 Normal (applies to non-numeric results) [facility] ([facility]) Laboratory test finding (navigational concept) 0.1 10 0 .0-0.2 Normal (applies to non-numeric results) [facility] ([facility]) Laboratory test finding (navigational concept) 0.6 10 0 .0-0.8 Normal (applies to non-numeric results) [facility] ([facility]) ID Date Data Source [id number] 10/11/2020 10:24:00 AM EST [facility] ([facility] [...] THAN 211 PG/ML ID Date Data Source [id number] 10/11/2020 10:24:00 AM EST [facility] ([facility] Name Value Range Interpretation Code Description Data Marilyn rce(s) Supporting Document(s) Thyroid Stimulating Hormone 1.010 uIU/ML 0.358-3.740 [facility] ([facility] Free T4 0.99 ng/dL 0.76-1.46 [facility] ([facility] ID Date Data Source [id number] 10/11/2020 10:24:00 AM EST [facility] ([facility] [...] [facility] ID Date Data Source [id number] 10/11/2020 10:24:00 AM EST [facility] ([facility] Name Value Range Interpretation Code Description Data Marilyn rce(s) Supporting Document(s) Laboratory test finding (navigational concept) 17.9 ng/mL 5.2-72.1 [facility] ([facility] Laboratory test finding (navigational concept) Laboratory test resu lt 0.0-5.0 [facility] ([facility] ID Date Data Source [id number] 10/11/2020 10:24:00 AM EST [facility] ([facility] Name Value Range Interpretation Code Description Data Marilyn rce(s) Supporting Document(s) Niacin [Mass/volume] in Serum or Plasma Laboratory test result [facility] ([facility] Pyridoxine [Mass/volume] in Serum or Plasma 5.5 ug/L 5.3-46.7 [facility] ([facility] Specimen Comment: Test(s) 299922-Savjifc amide; 445012-Yfjctahbn Acid; 238477- Specimen Comment: Vitamin B6; 451938-Rel. B1, Whole Blood Specimen Comment: was developed and its performance characteristics Specimen Comment: determined by [facility]. It has not been cleared or approved Specimen Comment: by the Food and Drug Administration. Thiamine [Mass/volume] in Blood 141.9 nmol/L 66.5-200.0 [facility] ([facility] Performed at: [address] [id number] Dewaxer: Alan Tineo MD, Phone: [phone] ID Date Data Source [id number] 10/11/2020 10:24:00 AM EST [facility] ([facility] [...] Little GFR Left</content>
<content>ESRD GFR <15 on V[employer]IN[employer]IRUS [employer]</content>
<content></content> Sodium Level 141 meq/L 136-145 [facility] [...] [facility] ID Date Data Source [id number] 10/11/2020 10:24:00 AM EST [facility] ([facility] [...] % 0.0-3.0 [facility] ([facility] [place] % 9.4 % 0.0-5.0 [facility] ([facility] [...] 10 0.0-0.2 [facility] ([facility] [place] # 0.7 10 0.0-0.8 [facility] ([facility] Eos # 0.3 10 0.0-0.5 [facility] ([facility] ID Date Data Source [id number] 10/11/2020 10:24:00 AM EST [facility] ([facility] [...] [facility] ) Performed at: [address] [id number] Dewaxer: Alan Tineo MD, Phone: [phone] ID Date Data Source [id number] 10/23/2019 11:13:00 [...] results) [facility] ([facility]) Laboratory test finding (navigational concept) 2.1 10 1 .5-5.0 Normal (applies to non-numeric results) [facility] ([facility]) Laboratory test finding (navigational concept) 0.1 10 0 .0-0.2 Normal (applies to non-numeric results) [facility] ([facility]) Laboratory test finding (navigational concept) 0.2 10 0 .0-0.5 Normal (applies to non-numeric results) [facility] ([facility]) Laboratory test finding (navigational concept) 0.7 10 0 .0-0.8 Normal (applies to non-numeric results) [facility] ([facility]) ID Date Data Source [id number] 10/23/2019 11:13:00 AM EST MEDENT ([facility]) Name Value Range Interpretation Code Description Data [...] results) MEDENT ([facility]) Laboratory test finding (navigational concept) 0.0 [...] k g/m2 MEDENT ([facility] [place] body weight 148 [lb_av] 148 [lb_av] MEDEN [...] 136 mm[Hg] EDENT ([facility] [place] body weight 148 [lb_av] 148 [lb_av] MEDEN T ([facility], ) Body mass index (BMI) [Ratio] 25.1 kg/m2 25.1 k g/m2 MEDENT ([facility]) Body weight 160.00 [lb_av] 160.00 [lb_av] MEDEN T ([facility]) Body height 67 [in_i] 67 [in_i] MEDENT ([facility]) 5'7" Respiratory rate 14 /min 14 /min MEDENT ( [facility], ) Heart rate 78 /min 78 /min MEDENT ([facility], ) Diastolic blood pressure 70 mm[Hg] 70 mm[Hg] MEDENT ([facility], ) Systolic blood pressure 100 mm[Hg] 100 mm[Hg] M EDENT ([facility]) Body mass index (BMI) [Ratio] 24.5 kg/m2 24.5 k g/m2 MEDENT ([facility] [place] body weight 148 [lb_av] 148 [lb_av] MEDEN [...] APOLONIA Crow ([facility])
--- NOTE | 2020-11-06 23:54 | CR.PDOC ---
General Date of Consultation: Nov 06, 2020 Referring Provider: Gil Klein MD Consultation REASON FOR CONSULTATION/CHIEF COMPLAINT: AMS, catatonia HISTORY OF PRESENT ILLNESS: Mr. Espinal is a 40 year old male with Bipolar who is here with AMS and catatonia. Patient did not answer my questions. Mother was present in the room and provided the story. Due to the COVID pandemic, he has been under a lot of stress. He lost his job and he has been having trouble paying for bills. Yesterday, his daughter said he was seen crying in the back yard. Around 4:30 PM today, he had called his dad since he was not feeling well. He felt that his eyes were going to bulge out of his eyes. When family saw him, his speech was slow and he could rodriguez talk. He seemed to be confused to the family. Mother said about 2 weeks ago, he had a new PCP. He did not tell the new PCP about his underlying psych history and he was prescribed amitriptyline, hydroxyzine, and Chantix about two weeks ago. Otherwise, Mother says that he had stopped his bipolar medication long ago. He does not follow a psychiatrist, and last seen Dr. Coto in 2018. While in the ED, work up was un-remarkable. No signs of infection. No leukocytosis. UA and CXR were un-remarkable. Renal function and liver function were normal. When I spoke with him, he does follow commands, but he does not want to speak. Otherwise no focal deficits and CN 3-12 grossly intact. Mother said that this has happened to him in the past before. In 2013 and 2015 he had [facility] admission for similar presentation where he becomes catatonic. Last time, mother said it took 2 days before coming out of this state. Patient is medically clear to go to the [facility]. ALLERGIES: Please see below. HOME MEDICATIONS: Please see below. 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 Migraine headaches PAST SURGICAL HISTORY: 1. Vasectomy 2. I&D of left hand and leg FAMILY HISTORY: Father: Alive,Bipolar Mother: Alive, Hypertension SOCIAL HISTORY: Unable to obtain as patient declines to answer REVIEW OF SYSTEMS: Unable to obtain as patient declines to answer. Dose not respond either with nodding or shaking, but can follow some commands PHYSICAL EXAMINATION: VITAL SIGNS: Please see below. GENERAL APPEARANCE: Withdrawn but no distress HEENT: Head normocephalic, atraumatic. Sclera clear RESPIRATORY: Lungs clear to auscultation bilaterally CARDIOVASCULAR: Tachycardic, but regular ABDOMEN: Soft, non-tender, normal bowel sounds EXTREMITIES: No pitting edema NEUROLOGICAL: Able to tract with eyes, EOMI. Muscles strength equal bilaterally PSYCHIATRIC: Depressed LABORATORY DATA: Please see below. ASSESSMENT/PLAN: 1. Bipolar, Depression episode -History of bipolar, has not followed with psychiatry since 2018 -Not taking depakote at this time -Patient in a catatonic state. He has been under a lot of stress. He lost his job due to the COVID pandemic and has been having difficulty paying bills. Daughter saw him crying yesterday. -Being managed in the [facility] 2. Possible polypharmacy -Recently saw a new PCP and was started on Amitriptyline, hydroxyzine, and Varenicline about two weeks ago. Unsure if these medications triggered patient's current psychiatric event 3. Common variable immune deficiency -Previously followed with Dr. Rojas -No active signs of infection There is no contraindication to taking patient to [facility]. Patient is medically clear. Discussed case with ED physician. Thank you for your consultation Vital Signs/I&O Vital Signs Date Time Temp Pulse Resp B/P (MAP) Pulse Ox O2 Delivery O2 Flow Rate FiO2 11/06/20 23:15 152/73 (99) 11/06/20 23:08 106 18 97 Room Air 11/06/20 19:54 98.8 Laboratory Data Labs 24H Laboratory Tests 2 11/06/20 20:52: Bedside Glucose (Misc Panel) 102 11/06/20 20:54: Immature Granulocyte % (Auto) 0.3, Neutrophils (%) (Auto) 67.5H, Lymphocytes (%) (Auto) 20.2L, Monocytes (%) (Auto) 10.0H, Eosinophils (%) (Auto) 1.2, Basophils (%) (Auto) 0.8, Neutrophils # (Auto) 5.2, Lymphocytes # (Auto) 1.6, Monocytes # (Auto) 0.8, Eosinophils # (Auto) 0.1, Basophils # (Auto) 0.1, Nucleated Red Blood Cells % (auto) 0.0, Anion Gap 7L, Glomerular Filtration Rate > 60.0, Lactic Acid Level 0.7, Calcium Level 9.1, Total Bilirubin 0.7, Direct Bilirubin 0.1, Aspartate Amino Transf (AST/SGOT) 15, Alanine Aminotransferase (ALT/SGPT) 40, Alkaline Phosphatase 80, Ammonia 15, Total Creatine Kinase 69, Creatine Kinase MB < 1.0, Creatine Kinase MB Relative Index 1.45, Troponin I < 0.02, Total Protein 7.7, Albumin 4.3, Albumin/Globulin Ratio 1.3, Thyroid Stimulating Hormone (TSH) 1.260, Salicylates Level 4.0L, Acetaminophen Level < 2.0L, Ethyl Alcohol Level 0.006 11/06/20 20:55: Coronavirus (COVID-19)(PCR) NEGATIVE, Influenza Type A (RT-PCR) NEGATIVE, Influenza Type B (RT-PCR) NEGATIVE, Respiratory Syncytial Virus (PCR) NEGATIVE 11/06/20 21:20: Urine Color YELLOW, Urine Appearance HAZY, Urine pH 5.0, Urine Specific [place] 1.020, Urine Protein NEGATIVE, Urine Glucose (UA) NEGATIVE, Urine Ketones TRACEH , Urine Blood NEGATIVE, Urine Nitrite NEGATIVE, Urine Bilirubin NEGATIVE, Urine Urobilinogen 2.0H, Urine Leukocyte Esterase NEGATIVE, Urine WBC (Auto) 1, Urine RBC (Auto) 6H, Urine Hyaline Casts (Auto) 0, Urine Bacteria (Auto) NEGATIVE, Urine Squamous Epithelial Cells 0, Urine Mucus (Auto) SMALL, Urine Sperm (Auto) , Urine Opiates Screen NEGATIVE, Urine Methadone Screen NEGATIVE, Urine Barbiturates Screen NEGATIVE, Urine Phencyclidine Screen NEGATIVE, Urine Amphetamines Screen NEGATIVE, Urine Benzodiazepines Screen NEGATIVE, Urine Cocaine Metabolite Screen NEGATIVE, Urine Cannabinoids Screen NEGATIVE CBC/BMP Laboratory Tests 11/06/20 20:54 Microbiology Microbiology 11/06/20 Blood Culture, Received Pending 11/06/20 Blood Culture, Received Pending Allergies Coded Allergies: Penicillins (Verified Allergy, Unknown, childhood allergy, 11/06/20) Sulfa (Sulfonamide Antibiotics) (Verified Allergy, Unknown, 11/06/20) aspirin (Verified Allergy, Unknown, 11/06/20) clindamycin (Verified Allergy, Unknown, 11/06/20) Home Medications Scheduled Amitriptyline HCl (Amitriptyline HCl) 25 Mg Tablet, 25 MG PO BID, (Reported) Varenicline (Chantix) 1 Mg Tablet, 1 MG PO BID, (Reported) Scheduled PRN Hydroxyzine HCl (Hydroxyzine HCl) 10 Mg Tablet, 10 MG PO TID PRN for ANXIETY, (Reported) Naproxen (Naproxen) 500 Mg Tablet.dr, 500 MG PO BID PRN for HEADACHE, (Reported) Rizatriptan Benzoate (Maxalt Speedometer Mechanic) 10 Mg Tab.rapdis, 10 MG PO BID PRN for MIGRAINE, (Reported) Miscellaneous Medications [Patient Comment] , (Reported) MED REC COMPLETED VIA EXTERNAL MED HISTORY JUAN BOO DO Nov 06, 2020 23:54
[2020-11-07] MEDS ORDERED: PATIENT COMMENT (01:58)
[2020-11-07] MEDS ORDERED: MAXA10TA15 PO (01:58)
[2020-11-07] MEDS ORDERED: AMIT25TA17 PO (01:58)
[2020-11-07] MEDS ORDERED: VARE1TA PO (01:58)
[2020-11-07] MEDS ORDERED: HYDR-643 PO (01:58)
[2020-11-07] MEDS ORDERED: NAPR500T6 PO (01:58)
[2020-11-07] MEDS ORDERED: NICOTINE 21MG/24HR 1 EA TRANSDERMAL TD PRN (02:15)
[2020-11-07] MEDS ORDERED: MOM 30ML SUSPENSION UDC PO PRN (02:15)
[2020-11-07] MEDS ORDERED: OLANZapine ORAL DISINTEGRATING TAB 5MG PO PRN (02:15)
[2020-11-07] MEDS ORDERED: hydrOXYzine 10 MG TAB PO PRN (02:15)
[2020-11-07] MEDS ORDERED: MAALOX 30 ML SUSP *UDC PO PRN (02:15)
[2020-11-07] MEDS: AMITRIPTYLINE 25MG TABLET PO SCH ×2 (02:56→09:00)
[2020-11-07] MEDS: VARENICLINE 1 MG TABLET PO SCH ×2 (02:56→09:00)
--- OUTSIDE RECORDS SUMMARY | 2020-11-07 04:17 | CCD ---
Author Author [facility] Organization [facility] Address Unknown Phone Unavailable Support Name Relationship Address Phone [facility] Next Of Kin [address] [facility] [address] [place] [address] OD GREENS Next Of Kin [address] [place] [address] O.D. HANNON Next Of Kin [address] [place] [address] O.D. HANNON [facility] Next Of Kin [address] [place] [address] OD GREEN Next Of Kin [address] [place] [address] O.D. 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 Next Of Kin [address] [place] [address] OD HANNON Next Of Kin [address] [place] [address] DAVID GARCIA Next Of Kin [address] [place] [id number] David Garcia [place] [id number] GUILHERME CURTISANNE [facility] [address] [place] [address] Unavailable Care Team Providers Care Front Office Director Name Role Phone JAZIEL WELLS MD Unavailable [...] Unavailable Unavailable CHROSTOWSKIJAZIEL MD Unavailable Unavailable CHROSTJAZIEL WOFLE MD Unavailable Unavailable CHROSTJAZIEL WOLFE MD Unavailable Unavailable CHROSTJAZIEL WOLFE MD Unavailable Unavailable CHROSTOWSKILEONORJAZIEL MD Unavailable Unavailable CHROSTOWSKIJAZIEL MD Unavailable Unavailable CHROSTOWSKILEONORJAZIEL MD Unavailable Unavailable CHROSTOWSKIJAZIEL MD Unavailable Unavailable CHROSTJAZIEL WOLFE MD Unavailable Unavailable CHROSTOWSKIJAZIEL MD Unavailable Unavailable CHROSTJAZIEL WOLFE MD Unavailable Unavailable Pleskach, Ericka LITHOGRAPHIC ETCHER Unavailable Unavailable Pleskach, Ericka LITHOGRAPHIC ETCHER Unavailable Unavailable Pleskach, Ericka LITHOGRAPHIC ETCHER Unavailable Unavailable Pleskach, Ericka LITHOGRAPHIC ETCHER Unavailable Unavailable Pleskach, Ericka LITHOGRAPHIC ETCHER Unavailable Unavailable Pleskach, Ericka LITHOGRAPHIC ETCHER Unavailable Unavailable Pleskach, Ericka LITHOGRAPHIC ETCHER Unavailable Unavailable Pleskach, Ericka LITHOGRAPHIC ETCHER Unavailable Unavailable Pleskach, Ericka LITHOGRAPHIC ETCHER Unavailable Unavailable Pleskach, Ericka LITHOGRAPHIC ETCHER Unavailable Unavailable Pleskach, Ericka LITHOGRAPHIC ETCHER Unavailable Unavailable Pleskach, Ericka LITHOGRAPHIC ETCHER Unavailable Unavailable Pleskach, Ericka LITHOGRAPHIC ETCHER Unavailable Unavailable Pleskach, Ericka LITHOGRAPHIC ETCHER Unavailable Unavailable Pleskach, Ericka LITHOGRAPHIC ETCHER Unavailable Unavailable Pleskach, Ericka LITHOGRAPHIC ETCHER Unavailable Unavailable Pleskach, Ericka LITHOGRAPHIC ETCHER Unavailable Unavailable Pleskach, Ericka LITHOGRAPHIC ETCHER Unavailable Unavailable Pleskach, Ericka LITHOGRAPHIC ETCHER Unavailable Unavailable Pleskach, Ericka LITHOGRAPHIC ETCHER Unavailable Unavailable Pleskach, Ericka LITHOGRAPHIC ETCHER Unavailable Unavailable Pleskach, Ericka LITHOGRAPHIC ETCHER Unavailable Unavailable Pleskach, Ericka LITHOGRAPHIC ETCHER Unavailable Unavailable Pleskach, Ericka LITHOGRAPHIC ETCHER Unavailable Unavailable Pleskach, Ericka LITHOGRAPHIC ETCHER Unavailable Unavailable Pleskach, Ericka LITHOGRAPHIC ETCHER Unavailable Unavailable Pleskach, Ericka LITHOGRAPHIC ETCHER Unavailable Unavailable Pleskach, Ericka LITHOGRAPHIC ETCHER Unavailable Unavailable Pleskach, Ericka LITHOGRAPHIC ETCHER Unavailable Unavailable Pleskach, Ericka LITHOGRAPHIC ETCHER Unavailable Unavailable Cuney, L Angella PAPER ROLL MACHINE OPERATOR Unavailable Unavailable Cuney, L Angella PAPER ROLL MACHINE OPERATOR Unavailable Unavailable Cuney, L Angella PAPER ROLL MACHINE OPERATOR Unavailable Unavailable Cuney, L Angella PAPER ROLL MACHINE OPERATOR Unavailable Unavailable Emma, L Angella PAPER ROLL MACHINE OPERATOR Unavailable Unavailable Cuney, L Angella PAPER ROLL MACHINE OPERATOR Unavailable Unavailable Emma, L Angella PAPER ROLL MACHINE OPERATOR Unavailable Unavailable Emma, L Angella PAPER ROLL MACHINE OPERATOR Unavailable Unavailable Emma, L Angella PAPER ROLL MACHINE OPERATOR Unavailable Unavailable Cuney, L Angella PAPER ROLL MACHINE OPERATOR Unavailable Unavailable Emma, L Angella PAPER ROLL MACHINE OPERATOR Unavailable Unavailable Cuney, L Angella PAPER ROLL MACHINE OPERATOR Unavailable Unavailable Emma, L Angella PAPER ROLL MACHINE OPERATOR Unavailable Unavailable Emma, L Angella PAPER ROLL MACHINE OPERATOR Unavailable Unavailable Emma, L Angella PAPER ROLL MACHINE OPERATOR Unavailable Unavailable Emma, L Angella PAPER ROLL MACHINE OPERATOR Unavailable Unavailable Cuney, L Angella PAPER ROLL MACHINE OPERATOR Unavailable Unavailable Emma, L Angella PAPER ROLL MACHINE OPERATOR Unavailable Unavailable Cuney, L Angella PAPER ROLL MACHINE OPERATOR Unavailable Unavailable Cuney, L Angella PAPER ROLL MACHINE OPERATOR Unavailable Unavailable Cuney, L Angella PAPER ROLL MACHINE OPERATOR Unavailable Unavailable Cuney, L Angella PAPER ROLL MACHINE OPERATOR Unavailable Unavailable Emma, L Angella PAPER ROLL MACHINE OPERATOR Unavailable Unavailable Emma, L Angella PAPER ROLL MACHINE OPERATOR Unavailable Unavailable Cuney, L Angella PAPER ROLL MACHINE OPERATOR Unavailable Unavailable Emma, L Angella PAPER ROLL MACHINE OPERATOR Unavailable Unavailable Cuney, L Angella PAPER ROLL MACHINE OPERATOR Unavailable Unavailable Emma, L Angella PAPER ROLL MACHINE OPERATOR Unavailable Unavailable Cuney, L Angella PAPER ROLL MACHINE OPERATOR Unavailable Unavailable Emma, L Angella PAPER ROLL MACHINE OPERATOR Unavailable Unavailable Cuney, L Angella PAPER ROLL MACHINE OPERATOR Unavailable Unavailable Cuney, L Angella PAPER ROLL MACHINE OPERATOR Unavailable Unavailable Cuney, L Angella PAPER ROLL MACHINE OPERATOR Unavailable Unavailable Ali, Cruz MD Unavailable Unavailable [...] is protected by Article 27-F of the [facility] Public Health law. If you continue you may have access to information: Regarding HIV / AIDS; Provided by facilities licensed or operated by the [facility] Office of Mental Health; or Provided by the [facility] Office for People With Developmental Disabilities. If such information is present, then the following [facility] mandated warning applies: This information [...] law may result in a fine or usp sentence or both. A general authorization for the release of medical or other information is NOT sufficient authorization for further disc losure. Family History Family Member Name Family Member Gender Family Member Status Date o f Status Description Data Source(s) Unknown Unknown Problem [facility] ([facility], ) Encounters Encounter Providers Location Date Indications Data Source(s ) Outpatient Attender: Ericka TOLEDOP Main Office 10/24/2020 0 7:45:00 AM EST [facility] ([facility] Outpatient Attender: Cruz Turk MD Main office [facility] [place] 10/08/2020 07:30:00 AM EST MED[facility] ([facility], ) Outpatient Attender: Ericka TOLEDOP [...] EST MED[facility] ([facility]) Medications Medication Brand Name Start Date Product [...] 12:00:00 AM EST ORAL active M EDENT ([facility]) rizatriptan 10 MG Disintegrating Oral Tablet Rizatriptan Jared zoate 10/08/2020 12:00:00 AM EST ORAL active M EDENT ([facility]) rizatriptan 10 MG Disintegrating Oral [...] 10/08/2020 12:00:00 AM EST ORAL active MED[facility] ([facility]) 500 mg 10/08/2020 12:00:00 [...] MED[facility] ( [facility]) Insurance Providers Payer name Policy type / Coverage type Policy ID Covered republican ID Covered republican's relationship to garza Policy Garza Plan Information [facility] [id number] SP [id number] [facility] [id number] SP [id number] MEDICAID [id number] SP [id number] [facility] [id number] Preferred Provider Organization (PPO) [id number] ANSI-Medicaid [id number] ANSI-Commercial [id number] ANSI-Medicaid [id number] ANSI-Not a Secondary Insurance [id number] ANSI-Medicaid [id number] ANSI-Medicaid [id number] ANSI-Commercial [id number] ANSI-Not a Secondary Insurance [id number] ANSI-Medicaid [id number] ANSI-Medicaid [id number] ANSI-Commercial [id number] ANSI-Not a Secondary Insurance [id number] ANSI-Not a Secondary Insurance [id number] ANSI-Medicaid [id number] ANSI-Commercial [id number] ANSI-Medicaid [id number] [facility] [id number] SP [id number] [facility] PLAN [facility] [id number] ANSI-Medicaid [id number] ANSI-Not a Secondary Insurance [id number] ANSI-Medicaid [id number] ANSI-Commercial [id number] ANSI-Not a Secondary Insurance [id number] ANSI-Medicaid [id number] ANSI-Commercial [id number] ANSI-Medicaid [id number] ANSI-Medicaid [id number] ANSI-Not a Secondary Insurance [id number] ANSI-Commercial [id number] ANSI-Medicaid [id number] ANSI-Medicaid [id number] ANSI-Medicaid [id number] ANSI-Commercial [id number] ANSI-Not a Secondary Insurance [id number] ANSI-Not a Secondary Insurance [id number] ANSI-Medicaid [id number] ANSI-Commercial [id number] ANSI-Medicaid [id number] [facility] Health Maintenance Organization (HMO) [id number] Self [id number] [facility] [id number] SP [id number] ANSI-Medicaid [id number] ANSI-Not a Secondary Insurance [id number] ANSI-Commercial [id number] ANSI-Medicaid [id number] MVP MCDO [id number] SP [id number] MVP MCDO [id number] SP [id number] MVP MCDO [id number] SP [id number] 8000 ANSI-Not a Secondary Insurance [id number] ANSI-Medicaid [id number] ANSI-Medicaid [id number] ANSI-Commercial [id number] ANSI-Medicaid [id number] ANSI-Commercial [id number] ANSI-Medicaid [id number] ANSI-Not a Secondary Insurance [id number] [facility] [id number] ANSI-Commercial [id number] ANSI-Not a Secondary Insurance [id number] ANSI-Medicaid [id number] [facility] Health Maintenance Organization (HMO) [id number] Self [id number] MVP Medicaid Health Maintenance Organization ([facility]) [id number] Self [id number] ANSI-Medicaid [id number] ANSI-Not a Secondary Insurance [id number] ANSI-Commercial [id number] ANSI-Commercial [id number] ANSI-Medicaid [id number] ANSI-Not a Secondary Insurance [id number] ANSI-Medicaid [id number] ANSI-Not a Secondary Insurance [id number] ANSI-Commercial [id number] MVP MCDHMO [id number] SP [id number] [facility] O [id number] S [id number] MVP MCDHMO [id number] SP [id number] [facility] [id number] SP [id number] VALUE OPTIONS (MVP) [id number] SP [id number] [employer] PPO O [id number] S [id number] MVP MCDHMO [id number] SP [id number] VALUE OPTIONS (MVP) [id number] SP [id number] VALUE OPTIONS (MVP) [id number] SP [id number] [facility] O [id number] S [id number] [facility] [id number] SP [id number] MVP MCDHMO [id number] SP [id number] [facility] [id number] SP [id number] MVP Commercial [id number] Self [id number] [facility] [id number] SP [id number] [facility] [id number] SP [id number] VALUE OPTIONS (MVP) [id number] SP [id number] [facility] [id number] SP [id number] MVP Commercial [id number] Self [id number] [facility] [id number] SP [id number] [facility] [id number] SP [id number] MVP H [id number] Self [id number] [facility] PHY [id number] SP [id number] MVP H [id number] Self [id number] [employer] [place] PPO 302/307 [id number] [employer] [place] PPO 302/307 [id number] EXCELLUS H [id number] Spouse [id number] EXCELLUS H [id number] Unkn [id number] ITT ADRIANA WORK COMP [id number] SP [id number] EXCELLUS H [id number] Self [id number] BCBS HMO [place] O [id number] O [id number] ITT ADRIANA WORK COMP [id number] SP [id number] Problems, Conditions, and Diagnoses Code Display Name Description Problem Type Effective Dates Data Source(s) 439916549 Low back pain Low back pain Problem 10/08/2020 12:00:00 AM EST MEDENT ([facility] [id number] Spondylolysis Spondylolysis Problem 10/08/2020 12:00:00 AM EST MED[facility] ([facility] ) [id number] Cervico-occipital neuralgia Cervico-occipital neuralgi a Problem 10/08/2020 12:00:00 AM EST [facility] ([facility] ) [id number] Neck pain Neck pain Problem 10/08/2020 12:00:00 AM ES T MED[facility] ([facility] [id number] Chronic tension-type headache Chronic tension-type hea dache Problem 10/08/2020 12:00:00 AM EST [facility] ([facility], ) [id number] Chronic intractable migraine without aur a Chronic intractable migraine without aura Problem 10/08/2020 12:00:00 AM EST MED[facility] ([facility] ) Surgeries/Procedures Procedure Description Date Indications Data Source(s) Brief Emotional/Behav Assessment W/ Scoring Doc Per Standard Inst 09/17/2020 12:00:00 AM EST [facility] ([facility] Results ID Date Data Source [id number] 10/11/2020 10:29:00 AM EST [facility] ([facility] Name Value Range Interpretation Code Description Data Marilyn rce(s) Supporting Document(s) IgG [Mass/volume] in Serum or Plasma 1120 mg/dL [phone] [facility] ([facility] ID Date Data Source [id number] 10/11/2020 10:29:00 AM EST MED[facility] ([facility] [...] Little GFR Left</content>
<content>ESRD GFR <15 on IN FLIGHT REFUELING MANAGER</content>
<content></content> Creatinine For GFR 0.96 mg/dL 0.70-1.30 [...] [facility] ID Date Data Source [id number] 10/11/2020 10:29:00 AM EST MED[facility] ([facility] [...] % 0.0-3.0 [facility] ([facility] Yell % 9.0 % 0.0-5.0 [facility] ([facility] Nucleated Red Blood Cell % 0.0 % 0-0 MED ENT ([facility] Immature Granulocyte % 0.3 % 0-3.0 [facility] ([facility] Baso % 1.1 % 0.0-1.0 [facility] ([facility] Neutrophils # 4.3 10 1.5-8.5 [facility] ([facility] Yell # 0.6 10 0.0-0.8 [facility] ([facility] Lymph # 1.7 10 1.5-5.0 [facility] ([facility] Eos # 0.3 10 0.0-0.5 [facility] ([facility] Baso # 0.1 10 0.0-0.2 [facility] ([facility] ID Date Data Source [id number] 10/11/2020 10:29:00 AM EST MED[facility] ([facility]) Name Value Range Interpretation Code Description Data Marilyn rce(s) Supporting Document(s) IgG [Mass/volume] in Serum or Plasma 1120 mg/dL [phone] Normal (applies to non- numeric results) [facility] ([facility] ) ID Date Data Source [id number] 10/11/2020 10:29:00 AM EST MED[facility] ([facility]) Name Value Range Interpretation Code Description Data [...] [facility] ([facility]) <content>Units are mL/min/1.73 m2</content>
<content></content>
<content>Chronic Kidney Disease Staging per NKF:</content>
<content></content>
<content>Stage I & II GFR >=60 Normal to Mildly Decreased</content>
<content>Stage III GFR 30- 59 Moderately Decreased</content>
<content>Stage IV GFR 15-29 Severely Decreased</content>
<content>Stage V GFR <15 Very Little GFR Left</content>
<content>ESRD GFR <15 on IN FLIGHT REFUELING MANAGER</content>
<content></content> Laboratory test finding (navigational concept) 0.96 [...] [facility] ([facility]) Laboratory test finding (navigational concept) 23 U/L 7 -37 Normal (applies to non-numeric results) [facility] ([facility] Laboratory test finding (navigational concept) 0.5 mg/dL 0 .2-1.0 Normal (applies to non-numeric results) [facility] ([facility]) Laboratory test finding (navigational concept) 75 U/L [...] [facility] ([facility]) Laboratory test finding (navigational concept) 1.3 Normal (applies to non- numeric results) [facility] ([facility] ) ID Date Data Source [id number] 10/11/2020 10:29:00 AM EST MED[facility] ([facility]) Name Value Range Interpretation Code Description Data [...] high normal [facility] ([facility]) Laboratory test finding (navigational concept) 1.7 10 1 .5-5.0 Normal (applies to non-numeric results) [facility] ([facility]) Laboratory test finding (navigational concept) 4.3 10 1 .5-8.5 Normal (applies to non-numeric results) [facility] ([facility]) Laboratory test finding (navigational concept) 0.3 10 0 .0-0.5 Normal (applies to non-numeric results) [facility] ([facility]) Laboratory test finding (navigational concept) 0.1 10 0 .0-0.2 Normal (applies to non-numeric results) [facility] ([facility]) Laboratory test finding (navigational concept) 0.6 10 0 .0-0.8 Normal (applies to non-numeric results) [facility] ([facility]) ID Date Data Source [id number] 10/11/2020 10:24:00 AM EST [facility] ([facility] [...] THAN 211 PG/ML ID Date Data Source [id number] 10/11/2020 10:24:00 AM EST [facility] ([facility] Name Value Range Interpretation Code Description Data Marilyn rce(s) Supporting Document(s) Thyroid Stimulating Hormone 1.010 uIU/ML 0.358-3.740 [facility] ([facility] Free T4 0.99 ng/dL 0.76-1.46 [facility] ([facility] ID Date Data Source [id number] 10/11/2020 10:24:00 AM EST [facility] ([facility] [...] [facility] ID Date Data Source [id number] 10/11/2020 10:24:00 AM EST [facility] ([facility] Name Value Range Interpretation Code Description Data Marilyn rce(s) Supporting Document(s) Laboratory test finding (navigational concept) 17.9 ng/mL 5.2-72.1 [facility] ([facility] Laboratory test finding (navigational concept) Laboratory test resu lt 0.0-5.0 [facility] ([facility] ID Date Data Source [id number] 10/11/2020 10:24:00 AM EST [facility] ([facility] Name Value Range Interpretation Code Description Data Marilyn rce(s) Supporting Document(s) Niacin [Mass/volume] in Serum or Plasma Laboratory test result [facility] ([facility] Pyridoxine [Mass/volume] in Serum or Plasma 5.5 ug/L 5.3-46.7 [facility] ([facility] Specimen Comment: Test(s) 939462-Jcdaght amide; 518730-Iufkdwuhd Acid; 102183- Specimen Comment: Vitamin B6; 106457-Mvw. B1, Whole Blood Specimen Comment: was developed and its performance characteristics Specimen Comment: determined by [facility]. It has not been cleared or approved Specimen Comment: by the Food and Drug Administration. Thiamine [Mass/volume] in Blood 141.9 nmol/L 66.5-200.0 [facility] ([facility] Performed at: [address] [id number] Director Of Mobile Marketing: Alan Tineo MD, Phone: [phone] ID Date Data Source [id number] 10/11/2020 10:24:00 AM EST [facility] ([facility] [...] Little GFR Left</content>
<content>ESRD GFR <15 on IN [employer]</content>
<content></content> Sodium Level 141 meq/L 136-145 [facility] [...] [facility] ID Date Data Source [id number] 10/11/2020 10:24:00 AM EST [facility] ([facility] [...] % 0.0-3.0 [facility] ([facility] Yell % 9.4 % 0.0-5.0 [facility] ([facility] [...] 10 0.0-0.2 [facility] ([facility] Yell # 0.7 10 0.0-0.8 [facility] ([facility] Eos # 0.3 10 0.0-0.5 [facility] ([facility] ID Date Data Source [id number] 10/11/2020 10:24:00 AM EST [facility] ([facility] [facility] [...] [facility] [place] ) Performed at: [address] [id number] Director Of Mobile Marketing: Alan Tineo MD, Phone: [phone] ID Date Data Source [id number] 10/23/2019 11:13:00 [...] results) [facility] ([facility]) Laboratory test finding (navigational concept) 2.1 10 1 .5-5.0 Normal (applies to non-numeric results) [facility] ([facility]) Laboratory test finding (navigational concept) 0.1 10 0 .0-0.2 Normal (applies to non-numeric results) MED[facility] ([facility]) Laboratory test finding (navigational concept) 0.2 10 0 .0-0.5 Normal (applies to non-numeric results) [facility] ([facility]) Laboratory test finding (navigational concept) 0.7 10 0 .0-0.8 Normal (applies to non-numeric results) [facility] ([facility]) ID Date Data Source [id number] 10/23/2019 11:13:00 AM EST MEDENT ([facility]) Name Value Range Interpretation Code Description Data [...] results) [facility] ([facility]) Laboratory test finding (navigational concept) 0.0 % [...] k g/m2 MEDENT ([facility] [place] body weight 148 [lb_av] 148 [lb_av] MEDEN [...] 136 mm[Hg] EDENT ([facility] [place] body weight 148 [lb_av] 148 [lb_av] MEDEN T ([facility], ) Body mass index (BMI) [Ratio] 25.1 kg/m2 25.1 k g/m2 MEDENT ([facility]) Body weight 160.00 [lb_av] 160.00 [lb_av] MEDEN T ([facility]) Body height 67 [in_i] 67 [in_i] MEDENT ([facility]) 5'7" Respiratory rate 14 /min 14 /min MEDENT ( [facility], ) Heart rate 78 /min 78 /min MEDENT ([facility], ) Diastolic blood pressure 70 mm[Hg] 70 mm[Hg] MEDENT ([facility], ) Systolic blood pressure 100 mm[Hg] 100 mm[Hg] M EDENT ([facility]) Body mass index (BMI) [Ratio] 24.5 kg/m2 24.5 k g/m2 MED[facility] ([facility] [place] body weight 148 [lb_av] 148 [lb_av] MEDEN T ([facility] Oxygen saturation in Arterial [...] APOLONIA Crow ([facility])
[2020-11-07 04:34] VITALS: BP 152/73
--- NOTE | 2020-11-07 05:35 | ECGEPIP ---
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
--- NOTE | 2020-11-07 17:31 | HPEPDOC ---
[facility] Medical History & Physical Date of Admission Nov 06, 2020 Date of Service: Nov 07, 2020 History and Physical Chief complaint: Presented to the ER with altered mental status History of present illness: Patient is a 40-year-old male who presented to the emergency room brought in by his mother after he was recently started on amitriptyline and hydroxyzine. Patient was unable to maintain eye contact when questioned while in the emergency room was ambulating very slowly. Patient had initially denied any suicidal ideation or homicidal ideation. He did state I just dont feel good. Patient was ultimately admitted to the inpatient mental health unit under the care of psychiatry. Hospitalist service initially had been consulted in the emergency room, however, is being consulted again for medical screening evaluation. Patient was seen and examined at the bedside. He is not answering any specific questions, is able to follow commands. Not appear to be in any acute pain or discomfort. Past Medical History: - Unable to be obtained as patient is non-verbal Reviewed medical record - Recurrent farunculosis - Hypogammaglobinemia /Common variable immunodeficiency IgG - Migraine headaches Past Surgical History: - Unable to be obtained as patient is non-verbal Reviewed medical record - Vasectomy 04/2012 - Septoplasty 05/2018 -Incision and drainage of L hand / leg Allergies: See below Medications: See below Family History: - Unable to be obtained as patient is non-verbal Reviewed medical record - Mother with history of hypertension, father with a history of bipolar Social History: - Unable to be obtained as patient is non-verbal Review of Systems: Unable to be obtained as patient is nonverbal Physical exam: - Vitals: BP [152/73], HR [106], RR [18], Sat [97%RA], Temp [98.8F] - General: Lying in bed, appears comfortable, awake, but does not answer questions - HEENT: NC, AT, PERRLA - CVS: +S1S2 - Lungs: Fair air entry bilaterally, No appreciable wheezing / rales / rhonchi - Abdomen: Soft, Non-distended, Non-tender - Extremities: No lower extremity edema, No calf tenderness - Neuro: Moving all four extremities - Skin: No visible rashes Labs: See below Imaging: CT head 11/06: No acute intracranial pathology is appreciated. CXR 11/06: No acute findings. Clear lung apple. EKG: See below Assessment and Plan: Bipolar / Depression / Catatonia - Patient has a history of bipolar disorder and has not seen psychiatry since 2018 - Was recently started on medications as an outpatient - Toxicology negative / Ethanol slightly elevated on admission - Currently is admitted to the inpatient mental health unit under the care of psychiatry - Currently being managed by psychiatry Hypogammaglobinemia /Common variable immunodeficiency IgG - No evidence of infection currently - Hemodynamically stable / afebrile - No leukocytosis / lactic acidosis - UA negative - Imaging reviewed - No indications for antibiotics at this time - Will check IgG levels DVT prophylaxis - Will c/w early ambulation 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 Hospitalist service will now sign off. Please reconsult as needed Vital Signs Vital Signs Date Time Temp Pulse Resp B/P (MAP) Pulse Ox O2 Delivery O2 Flow Rate FiO2 11/07/20 04:34 98.8 106 18 152/73 (99) 97 Room Air Laboratory Data Labs 24H Laboratory Tests 2 11/06/20 20:52: Bedside Glucose (Misc Panel) 102 11/06/20 20:54: Immature Granulocyte % (Auto) 0.3, Neutrophils (%) (Auto) 67.5H, Lymphocytes (%) (Auto) 20.2L, Monocytes (%) (Auto) 10.0H, Eosinophils (%) (Auto) 1.2, Basophils (%) (Auto) 0.8, Neutrophils # (Auto) 5.2, Lymphocytes # (Auto) 1.6, Monocytes # (Auto) 0.8, Eosinophils # (Auto) 0.1, Basophils # (Auto) 0.1, Nucleated Red Blood Cells % (auto) 0.0, Anion Gap 7L, Glomerular Filtration Rate > 60.0, Lactic Acid Level 0.7, Calcium Level 9.1, Total Bilirubin 0.7, Direct Bilirubin 0.1, Aspartate Amino Transf (AST/SGOT) 15, Alanine Aminotransferase (ALT/SGPT) 40, Alkaline Phosphatase 80, Ammonia 15, Total Creatine Kinase 69, Creatine Kinase MB < 1.0, Creatine Kinase MB Relative Index 1.45, Troponin I < 0.02, Total Protein 7.7, Albumin 4.3, Albumin/Globulin Ratio 1.3, Thyroid Stimulating Hormone (TSH) 1.260, Salicylates Level 4.0L, Acetaminophen Level < 2.0L, Ethyl Alcohol Level 0.006 11/06/20 20:55: Coronavirus (COVID-19)(PCR) NEGATIVE, Influenza Type A (RT-PCR) NEGATIVE, Influenza Type B (RT-PCR) NEGATIVE, Respiratory Syncytial Virus (PCR) NEGATIVE 11/06/20 21:20: Urine Color YELLOW, Urine Appearance HAZY, Urine pH 5.0, Urine Specific [place] 1.020, Urine Protein NEGATIVE, Urine Glucose (UA) NEGATIVE, Urine Ketones TRACEH, Urine Blood NEGATIVE, Urine Nitrite NEGATIVE, Urine Bilirubin NEGATIVE, Urine Urobilinogen 2.0H, Urine Leukocyte Esterase NEGATIVE, Urine WBC (Auto) 1, Urine RBC (Auto) 6H, Urine Hyaline Casts (Auto) 0, Urine Bacteria (Auto) NEGATIVE, Urine Squamous Epithelial Cells 0, Urine Mucus (Auto) SMALL, Urine Sperm (Auto) , Urine Opiates Screen NEGATIVE, Urine Methadone Screen NEGATIVE, Urine Barbiturates Screen NEGATIVE, Urine Phencyclidine Screen NEGATIVE, Urine Amphetamines Screen NEGATIVE, Urine Benzodiazepines Screen NEGATIVE, Urine Cocaine Metabolite Screen NEGATIVE, Urine Cannabinoids Screen NEGATIVE CBC/BMP Laboratory Tests 11/06/20 20:54 Microbiology Microbiology 11/06/20 Blood Culture, Received Pending 11/06/20 Blood Culture, Received Pending Home Medications Scheduled Amitriptyline HCl (Amitriptyline HCl) 25 Mg Tablet, 25 MG PO BID Varenicline (Chantix) 1 Mg Tablet, 1 MG PO BID Scheduled PRN Hydroxyzine HCl (Hydroxyzine HCl) 10 Mg Tablet, 10 MG PO TID PRN for ANXIETY Naproxen (Naproxen) 500 Mg Tablet.dr, 500 MG PO BID PRN for HEADACHE Rizatriptan Benzoate (Maxalt Frame Cleaner) 10 Mg Tab.rapdis, 10 MG PO BID PRN for MIGRAINE Miscellaneous Medications [Patient Comment] MED REC COMPLETED VIA EXTERNAL MED HISTORY Allergies Coded Allergies: Penicillins (Verified Allergy, Unknown, childhood allergy, 11/06/20) Sulfa (Sulfonamide Antibiotics) (Verified Allergy, Unknown, 11/06/20) aspirin (Verified Allergy, Unknown, 11/06/20) clindamycin (Verified Allergy, Unknown, 11/06/20) LEIGH KEVIN MD Nov 07, 2020 17:31
[2020-11-07 19:21] VITALS: BP 143/75
[2020-11-07] MEDS ORDERED: LORazepam 0.5 MG TAB PO PRN (21:00)
[2020-11-07] MEDS ORDERED: risperiDONE 0.5 MG TAB PO SCH (21:00)
[2020-11-07] MEDS ORDERED: LORazepam 1 MG TAB PO SCH (21:00)
[2020-11-07] MEDS: OLANZapine 5 MG TAB PO SCH (21:46)
--- NOTE | 2020-11-08 12:17 | MHHPE ---
[facility] HISTORY AND PHYSICAL DATE OF ADMISSION: 11/06/2020 CHIEF COMPLAINT: He does not offer a complaint as such and has a difficult time articulating things. SUBJECTIVE: He is 40 years old. Has a daughter. He is brought into the emergency room by his mother, as she had found him to be acting "bizarre" and was not responding appropriately. She had apparently not seen him since Kathleen. The history currently is obtained from the emergency room record. He was thought to be nonverbal in the emergency room (ER) and unable to answer questions, possibly unwilling to do so. It is thought he had started new medicines in the recent past, last few weeks, amitriptyline, hydroxyzine and Chantix. When seen in the emergency room, he was noted to have a shuffling gait, confused at times, answering questions mostly with one word and intermittently. He has a history of bipolar disorder. I used to see him at the outpatient clinic in the past. Was last seen about 2 years ago. He decided not to followup. It should be noted, he was on Depakote at one point at 750 mg daily and had used risperidone with it in the past. Risperidone had been discontinued. He was kept on Depakote but in late 2017 indicated that he had, in fact, not been taking the Depakote for the better part of that year. He would tend to collect the prescriptions but ot take them. He was not following up afterward and was discharged. He also has a gamma globulin disorder. Receives infusions. I think they are once a month. Used to see Dr. Rojas in the past but has not, according to [facility], seen her in recent times. This may be inaccurate. Apparently has received an infusion last month. When doing well, he is coherent with no cognitive difficulties which are apparent, no psychosis, no difficulties with the sensorium. Has had a similar presentation in the past with internal preoccupation and catatonia-like symptoms. PAST PSYCHIATRIC HISTORY: As indicated above, has had previous hospitalizations. Please see previous summaries for details. Has seen me in the outpatient clinic. Used to see Mr. Justice for therapy as well. He was discharged. Decided not to followup, about 2 years or so ago. MEDICAL HISTORY: As indicated above, has a history of hypogammaglobulinemia/common variable immunodeficiency IgG. Has a history of migraine headaches. Was recently given Chantix, amitriptyline, hydroxyzine. The indications are unclear. He stated to staff that he did not feel good. When in the emergency room, was seen by the hospitalist and essentially "medically cleared" from their standpoint and admitted to psychiatry. Has been followed up by the hospitalist here at the inpatient unit. It should be noted toxicology essentially was negative. Alcohol slightly elevated on admission. Has done well in the past on Depakote. Has also had risperidone in combination with it. He was hospitalized for about 10 days in January 2017. Showed catatonic behavior. Would not get up from his bed. Could not talk or drink. Matters cleared after he was put on Zyprexa, discharged on Abilify Maintena. He was also on Ativan at the time, citalopram 10 mg day as well. This was in addition to Depakote, which was at 500 mg twice a day. SOCIAL HISTORY: Please refer to previous summaries. Has a daughter. When I last saw him, daughter was living with him. He had been working in the past, but I understand he had lost his job during the COVID crisis. MENTAL STATUS EXAMINATION: An attempt was made to see him via video. He was lying in bed. He was unkempt. Had his eyes open. Tried to move his lips. Then when I asked him how he was doing, he indicated "okay." Then he said he was good. Then he asked me softly how I was. I asked him if he recognized me. He did not give any indication either way but gave the impression that he understood. Verbal to nod a couple of times. It appeared as if he was trying to vocalize something. Was unable to. He lay in bed throughout and was not able to answer other questions. There was no change of sensorium, however. No agitation. No psychomotor retardation as such. Little in terms of reactivity of affect, mostly blunted. Unable to vocalize whether he wanted to hurt himself or anyone else. It is possible he is internally preoccupied. There did not seem to be a fluctuation of consciousness, but I am unable to ascertain his sense of orientation. He would not be oriented to place or time but seemed to be oriented to self. Judgment and insight by definition at present are deemed to be poor. INVESTIGATIONS: This includes CT scan of the brain, which was essentially within normal limits and indicated no intracranial pathology. Complete blood count essentially within normal limits. except for a slight raise in neutrophils to 67.5%, lymphocytes 20.2, monocytes 10%. Urine toxicology is essentially negative. Metabolic profile within normal limits. ASSESSMENT: Unspecified psychotic disorder. Given past history, the differential includes bipolar disorder, current episode manic with psychotic features or depressed with psychotic features. Delirium another possibility, though less likely given the presentation and the generally clear sensorium. Reacting to recent medications, given that he had been started on amitriptyline and hydroxyzine, which also risk factors for delirium are factors to consider. An impact on his sensorium from the infusion of gamma globulins is also to be considered, though somewhat remote. He last had his infusion about 3 weeks or so ago. PLAN: He is admitted to the inpatient psychiatry unit, placed on relevant precautions. We will start him on lorazepam to titrate upward. We started the lower dose but may need a higher one eventually to help with his current state and possible catatonia. We will start him on risperidone as well, as this has benefitted him in the past but may need to consider switching it to olanzapine. Has been seen by medicine, who asked him to followup with them if there are further concerns. We will look at obtaining collateral information. He is encouraged to participate in activities in the unit as tolerated. He will be discharged with followup once he is stable. I would anticipate a 5-7 day stay. He will be seen later in the day today for a [id number]-[id number] evaluation as well. The assessment has taken 35 minutes.
[2020-11-08] MEDS ORDERED: LORazepam 1 MG TAB PO ONE (15:00)
[2020-11-08 18:42] VITALS: BP 135/89
[2020-11-08] MEDS: OLANZapine 5 MG TAB PO SCH (21:16)
[2020-11-08] MEDS: LORazepam 1 MG TAB PO SCH (21:17)
[2020-11-09 06:33] VITALS: BP 130/62
[2020-11-09] MEDS: LORazepam 1 MG TAB PO SCH ×2 (08:39→20:18)
--- NOTE | 2020-11-09 16:24 | MHHPE ---
[facility] HISTORY AND PHYSICAL DATE OF ADMISSION: 11/06/2020 ADDENDUM: I came to see the patient, the michael, who was in the presence of staff. He was lying down in bed, was not able to communicate verbally, gave the impression he recognized me, blinked his eyes regularly, tried to vocalize. I then asked him questions, which would require yes or no answers and asked him to lift his left arm to indicate a yes or no, as the case may be. He was able to do that. He indicated he had received infusions for the gamma-globulin, indicated he did not see Dr. Rojas, did not go to [place] for the infusions, but did not seem to give a committed answer as to where he went. He indicated he had not been to the bathroom, he had taken fluids. This is all to gestures using the left arm. Possibly appeared internally preoccupied. Cannot vocalize anything. There did not seem to be any fluctuation of consciousness and judgment and insight remains poor. He is not able to indicate where he was or time either. I reiterated the assessment made early on and evoked previous occasion when he had similar presentation about 4 years ago. At that time, Ativan and Zyprexa had seemed to be useful. I informed him that we will look at using Ativan and Zyprexa by mouth if he can and it should be used possibly in preference to the . He was encouraged to follow those recommendations. I discussed by assessment and my recommendation. He seemed to have an understanding of this without vocalizing that he did. Further recommendations will be made depending on the clinical picture. The history and the mental status examination were reiterated
[2020-11-09] MEDS: NAPROXEN 250 MG TAB PO PRN (16:34)
[2020-11-09 18:44] VITALS: BP 154/82
[2020-11-09] MEDS: OLANZapine 5 MG TAB PO SCH (20:18)
[2020-11-10 07:09] VITALS: BP 114/64
[2020-11-10] MEDS: LORazepam 1 MG TAB PO SCH ×2 (08:15→21:02)
[2020-11-10] MEDS: ACETAMINOPHEN TAB 650MG DOSE (2X325MG) PO PRN (13:09)
[2020-11-10 16:59] VITALS: BP 140/80
[2020-11-10] MEDS: OLANZapine 5 MG TAB PO SCH (21:02)
[2020-11-10] MEDS: traZODone 50 MG TAB PO PRN (21:02)
[2020-11-10] MEDS: NAPROXEN 250 MG TAB PO PRN (21:02)
[2020-11-10] MEDS: RIZATRIPTAN MLT 10 MG TAB PO PRN (22:06)
[2020-11-11] MEDS: ACETAMINOPHEN TAB 650MG DOSE (2X325MG) PO PRN ×2 (06:22→12:36)
[2020-11-11 07:05] VITALS: BP 154/82
[2020-11-11] MEDS: LORazepam 1 MG TAB PO SCH ×2 (08:24→21:08)
[2020-11-11 16:29] VITALS: BP 141/81
--- NOTE | 2020-11-11 17:01 | MHIPN ---
[facility] PROGRESS NOTE DATE: 11/08/2020 VITAL SIGNS: Blood pressure 143/75, pulse 99, temperature 98.8. This is a video assessment, he is seen in the presence of staff. CHIEF COMPLAINT: Says does not feel okay. SUBJECTIVE: Seen for followup. He is sitting up, says does not feel okay, but he is unable to elaborate. Is able to answer some questions briefly, one word answers, but coherently. Recognized me, knew my name. He felt he had not slept much. He has not felt like eating. Is able to indicate that he has been getting his gamma globulin infusions, and that he may have got it last just about a week or so ago. Says he arranges them for himself, at home, they are apparently delivered there, he does not go in for them, because of the pandemic. He was able to acknowledge that his daughter possibly assists him with that, though unclear on that. MENTAL STATUS EXAMINATION: Unkempt, cooperative, no agitation, has latency of responses, patient has some thought blocking, but gives brief answers at times, in response to the questions asked. He has a restricted, blunted, affect, possibly internally preoccupied, though this is unclear. No evidence of his wanting to hurt himself or anyone else. He is alert, no fluctuation of consciousness, oriented to person and place, unclear if he is fully oriented to time, I did not formally test him. Judgment and insight are compromised. ASSESSMENT: Unspecified psychotic disorder. Consider bipolar disorder, current episode depressed with psychosis, as part of the differential. Unclear if this is also a feature of his receiving the gamma globulin recently, unlikely. Has had such periods of internal preoccupation, and catatonia, in the past. Collateral information obtained by staff from the mother are detailed in the nurse's note, the nurse working with him, Vesta, informed me of his getting his infusions at home. The patient was able to indicate they are prescribed by a doctor in [place]. PLAN: We will look at obtaining further collateral information, and we will also increase the lorazepam to 1 mg twice a day, while continuing the Zyprexa at 5 mg at night. Will encourage him to eat, and take fluids. Will continue with current observations as well. Further recommendations will be made depending on the clinical picture.
--- NOTE | 2020-11-11 20:50 | MHIPN ---
[facility] PROGRESS NOTE DATE: 11/09/2020 VITAL SIGNS: Blood pressure 130/62, pulse 86, temperature 98.1. CHIEF COMPLAINT: Feels a bit better. SUBJECTIVE: He is seen for followup, he is seen in the presence of staff, on video, we are doing this because of the pandemic. Feels better, he has been up today, out of bed, has walked around the room and the hallway. Staff has noted that he has been more verbal. He says feels better, is not sure how much he slept last night, but thinks he got a couple of hours. He feels less tired, less anxious overall. Says appetite is fair. Does not feel as anxious. Feels his thinking is clearer. He indicates he took his gamma globulin a week ago, takes it every week, says it is subcutaneous, it used to be intravenous, says has been using it subcutaneously for the last at least 6 months, and sees a Dr. Oliveros, located here in [place]. MENTAL STATUS EXAMINATION: He is neater than yesterday, he is cooperative, there is no agitation, some latency of response, but not as prominent as yesterday, he has a restricted affective. He answers questions logically, coherently, briefly, but is more vocal than yesterday. Denies any suicidal thoughts or intents, no evidence of any thoughts of harming anyone else. He is alert, he is oriented to place, person, and time, he could tell me it was 11/09/2020, and took a little while to tell me that it was [facility] Day. He can spell the word house forward and backward. He can recall 3/3 objects after 5 minutes. No fluctuation of consciousness. Judgment and insight, though compromised, are improved. ASSESSMENT: Unspecified psychotic disorder. Possibility of bipolar disorder, with most recent episode, the current one, being depressed with some psychotic features, is also considered. The timing of the injection, and his current symptoms also needs to be taken into consideration, to see if that has had an impact on his mental status. Collateral information was obtained by staff from the patient's mother. It is quite possible the Ativan, he is on 1 mg twice a day, and the nighttime olanzapine may also help. PLAN: We will continue with current care and observations, he is made aware of that. He is to be encouraged to participate in activities in the unit. Further recommendations to be made depending on the clinical picture.
[2020-11-11] MEDS: OLANZapine 5 MG TAB PO SCH (21:08)
[2020-11-11] MEDS: RIZATRIPTAN MLT 10 MG TAB PO PRN (21:08)
[2020-11-11] MEDS: traZODone 50 MG TAB PO PRN (21:09)
[2020-11-11] MEDS: NAPROXEN 250 MG TAB PO PRN (21:09)
--- NOTE | 2020-11-11 21:39 | MHIPN ---
[facility], LATER [facility] PROGRESS NOTE DATE: 11/10/2020 VITAL SIGNS: Blood pressure 140/80, pulse 90, temperature 97.8. This is a video assessment, for followup, he is aware of it, he is seen in the presence of staff. CHIEF COMPLAINT: Feels better. SUBJECTIVE: He is seen for followup. Indicates feels better, and that he slept, felt rested at night. Has been eating better, feels less anxious, and overall improved. 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 He says he and his girlfriend had broken up the previous week, and their relationship has been back and forth for the last few months. They had apparently known each other in the past as well. 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 Began finding it hard to organize his thoughts, increasingly so, says was a bit confused but not much, in that he felt paranoid, others were talking about him, laughing at him, though he could not hear them. Says for a brief while also thought that the police were after him, for no apparent reason. He feels this had been building up, but changed, relatively quickly, within a day or so, a couple of days before he came in. Does not endorse any auditory hallucinations, however. Says when he came in, could understand what was being said, wanted to speak, felt unable to, but knew what he wanted to say. Gets the infusion once a week, that has been the case for quite a while, gets it subcutaneously. MENTAL STATUS EXAMINATION: He is neat, he is cooperative, there is no agitation, no psychomotor retardation, he is less hesitant of speech, is mildly anxious, but less so than he has been in recent past, with a broader affect. He denies any suicidal thoughts or intents, no homicidal ideas or intents, currently no fluctuation of consciousness, he is alert and oriented. Judgment and insight, though compromised, are improved. ASSESSMENT: Unspecified psychotic disorder. Consider bipolar disorder, most recent episode depressed, with psychotic features, and catatonia. Clinically, much improved, the features are not much in keeping with delirium, though they cannot be completely ruled out either. The possibility of his being depressed, anxious, with psychosis, needs to be considered. PLAN: He is to continue with current care, Ativan 1 mg twice a day, as well as the olanzapine at night, currently 5 mg. Will encourage participation in activities as tolerated. Will ask the department of medicine to see the patient, regarding his infusion, and timings, particularly as he has not had any for just over a week. Further recommendations will be made depending on the clinical picture.
[2020-11-12] MEDS: LORazepam 1 MG TAB PO SCH ×2 (08:22→20:35)
[2020-11-12] MEDS: ACETAMINOPHEN TAB 650MG DOSE (2X325MG) PO PRN (10:31)
--- NOTE | 2020-11-12 14:00 | MHIPN ---
[facility] PROGRESS NOTE DATE: 11/11/2020 VITAL SIGNS: Blood pressure 141/81, pulse 94, temperature 98.2. CHIEF COMPLAINT: Feels a bit tired. SUBJECTIVE: Seen for followup. He is seen in the presence of staff. Says feels a bit tired, physically, but that he has been doing okay emotionally. Anxiety is down, moods are better. Has eaten. He feels that he may be tired because of missing on the gamma globulin treatment a couple of days ago, gets it once a week. Says was prescribed amitriptyline for headaches by neurology, sees , and was due to get an MRI of the brain done tomorrow for them. He had a CT scan done on admission here of the brain which was within normal limits. Was given hydroxyzine recently for anxiety. Says took it around about the day that he came in. Was started on Chantix as well, this was just prior to coming in. Says had been stressed, with quite a bit going on, a week or two prior to admission, but does not think that he was depressed. Says felt somewhat tired emotionally. MENTAL STATUS EXAMINATION: Neat, cooperative, coherent. Affect a bit restricted. No agitation. No psychomotor retardation. Denies any thoughts of harming himself or anyone else. No evidence of any psychosis at present. Cognition grossly intact. Judgment and insight improved. ASSESSMENT: 1. Unspecified psychotic disorder. 2. This is most likely bipolar disorder, recent episode depressed, also with psychosis. Feels better, looks less anxious and overall better. PLAN: Continue current care, Ativan 1 mg twice a day, olanzapine at the current dose, 5 mg at night. We will ask the department of medicine regarding the gamma globulin. May need to get information from Dr. Oliveros. Further recommendations will be made depending on the clinical picture. The patient is aware that he may be assigned to a different clinician from tomorrow onwards. When he is discharged, should he wish to be seen here at the clinic at [facility], he can be referred. I would suggest that he see a psychiatrist upon discharge.
[2020-11-12 16:09] VITALS: BP 133/71
--- NOTE | 2020-11-12 17:49 | MHIPNPDOC ---
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 He has not been following outpatient care and was recently under the care of a david doctor, who placed him on amitriptyline 50 mg at night with Atarax and Chantix.. VITAL SIGNS: See below. NEW TEST RESULTS: None. CURRENT MEDICATIONS: See below. MENTAL STATUS EXAMINATION: Patient is a 40-year old male, who is, admitted for anxiety and depression. Speech: Is. Normal. Language skills are intact. Thought processes including: As follows. Thought content:. Describes history of stress. Abstract reasoning, and computation: Intact. Description of associations: Intact. Description of abnormal or psychotic thoughts:. No abnormal or psychotic thoughts noted. Judgment:. Intact. Insight: Good. Orientation: 3. Recent and remote memory: Intact. Attention span and concentration: No difficulties noted. Language: No disturbances. Fund of knowledge: Full. Mood: Euthymic. Affect:, Congruent. DIAGNOSES: 1. Major depression with anxiety. ASSESSMENT: A 40-year-old male who had depression, anxiety and recent stressors would been treated with amitriptyline and Atarax which were not helpful and was hospitalized for reevaluation of medication MANAGEMENT PLAN:. Continue on present medication and make outpatient plan. TIME SPENT: 35 minutes. Vital Signs Vital Signs Date Time Temp Pulse Resp B/P (MAP) Pulse Ox O2 Delivery O2 Flow Rate FiO2 11/12/20 16:09 98.2 80 16 133/71 (91) 100 Room Air Current Medications Current Medications Medications (Trade) Dose Ordered Sig/Tani Route PRN Reason Start Time Stop Time Status Last Admin Dose Admin Acetaminophen (Tylenol Tab) 650 mg Q6HP PRN PO HEADACHE or DISCOMFORT 11/07/20 02:15 11/12/20 10:31 Al Hydrox/Mg Hydrox/Simethicone (Mylanta) 30 ml Q4HP PRN PO HEARTBURN/INDIGESTION 11/07/20 02:15 Amitriptyline HCl (Elavil) 25 mg BID PO 11/06/20 21:00 11/07/20 19:08 DC 11/07/20 02:56 Home Med (Med Rec Complete!) ASDIRECTED XX 11/07/20 02:00 11/07/20 02:02 DC Hydroxyzine HCl (Atarax) 10 mg TID PRN PO ANXIETY 11/07/20 02:15 11/07/20 19:08 DC Lorazepam (Ativan) 0.5 mg BIDP PRN PO ANXIETY 11/07/20 21:00 Cancel Lorazepam (Ativan) 1 mg BID PO 11/08/20 21:00 11/12/20 08:22 Lorazepam (Ativan) 1 mg QHS PO 11/07/20 21:00 11/08/20 14:29 DC 11/07/20 21:46 Magnesium Hydroxide (Milk Of Magnesia) 30 ml DAILYPRN PRN PO CONSTIPATION 11/07/20 02:15 Naproxen (Naprosyn) 500 mg BID PRN PO HEADACHE 11/07/20 02:15 11/11/20 21:09 Nicotine (Nicoderm Cq 21mg) 1 patch DAILY PRN TD Nicotine withdrawal. 11/07/20 02:15 Olanzapine (ZyPREXA ZYDIS) 5 mg Q6HP PRN PO AGITATION 11/07/20 02:15 Olanzapine (ZyPREXA) 5 mg QHS PO 11/07/20 21:00 11/11/20 21:08 Risperidone (RisperDAL) 0.5 mg QHS PO 11/07/20 21:00 Cancel Rizatriptan Benzoate (Maxalt-Siebel Developer) 10 mg BID PRN PO MIGRAINE 11/07/20 02:15 11/11/20 21:08 Trazodone HCl (Desyrel) 50 mg QHSP PRN PO INSOMNIA 11/07/20 02:15 11/11/20 21:09 Varenicline (Chantix) 1 mg BID PO 11/06/20 21:00 11/07/20 19:08 DC 11/07/20 02:56 Allergies Coded Allergies: Penicillins (Verified Allergy, Unknown, childhood allergy, 11/06/20) Sulfa (Sulfonamide Antibiotics) (Verified Allergy, Unknown, 11/06/20) aspirin (Verified Allergy, Unknown, 11/06/20) clindamycin (Verified Allergy, Unknown, 11/06/20) JD GAMBINO MD Nov 12, 2020 17:49
[2020-11-12] MEDS: OLANZapine 5 MG TAB PO SCH (20:35)
[2020-11-12] MEDS: NAPROXEN 250 MG TAB PO PRN (20:36)
[2020-11-13 06:00] VITALS: BP 143/82
[2020-11-13] MEDS: LORazepam 1 MG TAB PO SCH ×2 (08:20→20:51)
--- NOTE | 2020-11-13 11:45 | MHIPNPDOC ---
[facility] Progress Note Progress Note DATE OF SERVICE: 11/13/20 HISTORY: 40-year-old male with history of bipolar disorder and poor compliance and poor follow-up. He is recently become overwhelmed leading to hospitalization with apparent psychotic features. VITAL SIGNS: See below. NEW TEST RESULTS:, None. CURRENT MEDICATIONS: See below. MENTAL STATUS EXAMINATION: Patient is a 40-year old male, who is significantly improving on present medications. Speech: Is. Normal. Language skills are normal. Thought processes including: Future plans. Thought content: Future plans and follow-up. Abstract reasoning, and computation: Able to abstract. Description of associations: Loose association. Description of abnormal or psychotic thoughts:. No psychotic thought noted. Judgment:. Good. Insight: Good. Orientation: 3. Recent and remote memory: Intact. Attention span and concentration: Good Language: No disturbance. Fund of knowledge: Full. Mood: Euthymic. Affect:, Congruent. DIAGNOSES: 1. Bipolar disorder with psychotic features. 2. Immune disease. 3., None. ASSESSMENT: 40-year-old male with history of bipolar disorder and poor compliance and follow-up MANAGEMENT PLAN: Present medications seem adequate and discharge planning will begin. TIME SPENT: 35 minutes. Vital Signs Vital Signs Date Time Temp Pulse Resp B/P (MAP) Pulse Ox O2 Delivery O2 Flow Rate FiO2 11/13/20 06:00 96.7 87 16 143/82 (102) 100 Room Air Current Medications Current Medications Medications (Trade) Dose Ordered Sig/Tani Route PRN Reason Start Time Stop Time Status Last Admin Dose Admin Acetaminophen (Tylenol Tab) 650 mg Q6HP PRN PO HEADACHE or DISCOMFORT 11/07/20 02:15 11/12/20 10:31 Al Hydrox/Mg Hydrox/Simethicone (Mylanta) 30 ml Q4HP PRN PO HEARTBURN/INDIGESTION 11/07/20 02:15 Amitriptyline HCl (Elavil) 25 mg BID PO 11/06/20 21:00 11/07/20 19:08 DC 11/07/20 02:56 Home Med (Med Rec Complete!) ASDIRECTED XX 11/07/20 02:00 11/07/20 02:02 DC Hydroxyzine HCl (Atarax) 10 mg TID PRN PO ANXIETY 11/07/20 02:15 11/07/20 19:08 DC Lorazepam (Ativan) 0.5 mg BIDP PRN PO ANXIETY 11/07/20 21:00 Cancel Lorazepam (Ativan) 1 mg BID PO 11/08/20 21:00 11/13/20 08:20 Lorazepam (Ativan) 1 mg QHS PO 11/07/20 21:00 11/08/20 14:29 DC 11/07/20 21:46 Magnesium Hydroxide (Milk Of Magnesia) 30 ml DAILYPRN PRN PO CONSTIPATION 11/07/20 02:15 Naproxen (Naprosyn) 500 mg BID PRN PO HEADACHE 11/07/20 02:15 11/12/20 20:36 Nicotine (Nicoderm Cq 21mg) 1 patch DAILY PRN TD Nicotine withdrawal. 11/07/20 02:15 Olanzapine (ZyPREXA ZYDIS) 5 mg Q6HP PRN PO AGITATION 11/07/20 02:15 Olanzapine (ZyPREXA) 5 mg QHS PO 11/07/20 21:00 11/12/20 20:35 Risperidone (RisperDAL) 0.5 mg QHS PO 11/07/20 21:00 Cancel Rizatriptan Benzoate (Maxalt-Hardwood Floor Layer) 10 mg BID PRN PO MIGRAINE 11/07/20 02:15 11/11/20 21:08 Trazodone HCl (Desyrel) 50 mg QHSP PRN PO INSOMNIA 11/07/20 02:15 11/11/20 21:09 Varenicline (Chantix) 1 mg BID PO 11/06/20 21:00 11/07/20 19:08 DC 11/07/20 02:56 Allergies Coded Allergies: Penicillins (Verified Allergy, Unknown, childhood allergy, 11/06/20) Sulfa (Sulfonamide Antibiotics) (Verified Allergy, Unknown, 11/06/20) aspirin (Verified Allergy, Unknown, 11/06/20) clindamycin (Verified Allergy, Unknown, 11/06/20) JD GAMBINO MD Nov 13, 2020 11:45
[2020-11-13] MEDS: ACETAMINOPHEN TAB 650MG DOSE (2X325MG) PO PRN (15:41)
[2020-11-13 19:18] VITALS: BP 137/81
[2020-11-13] MEDS: NAPROXEN 250 MG TAB PO PRN (20:52)
[2020-11-13] MEDS: OLANZapine 5 MG TAB PO SCH (20:52)
[2020-11-14 06:34] VITALS: BP 139/65
[2020-11-14] MEDS ORDERED: TRAZ-252 PO (09:24)
[2020-11-14] MEDS ORDERED: OLAN5TAB PO (09:24)
--- NOTE | 2020-11-14 10:06 | MHDSPDOC ---
[facility] Discharge Summary Discharge Summary DATE OF ADMISSION: Nov 06, 2020 at 19:54 DATE OF DISCHARGE: Oct DISCHARGE DIAGNOSES: 1. Atypical psychotic disorder REASON FOR ADMISSION: [COMPLAINT: He does not offer a complaint as such and has a difficult time articulating things.] SUBJECTIVE: He is 40 years old. Has a daughter. He is brought into the emergency room by his mother, as she had found him to be acting "bizarre" and was not responding appropriately. She had apparently not seen him since . The history currently is obtained from the emergency room record. He was thought to be nonverbal in the emergency room (ER) and unable to answer questions, possibly unwilling to do so. It is thought he had started new medicines in the recent past, last few weeks, amitriptyline, hydroxyzine and Chantix. When seen in the emergency room, he was noted to have a shuffling gait, confused at times, answering questions mostly with one word and intermittently. He has a history of bipolar disorder. I used to see him at the outpatient clinic in the past. Was last seen about 2 years ago. He decided not to followup. It should be noted, he was on Depakote at one point at 750 mg daily and had used risperidone with it in the past. Risperidone had been discontinued. He was kept on Depakote but in late 2017 indicated that he had, in fact, not been taking the Depakote for the better part of that year. He would tend to collect the prescriptions but ot take them. He was not following up afterward and was discharged. He also has a gamma globulin disorder. Receives infusions. I think they are once a month. Used to see Dr. Rojas in the past but has not, according to [email or web address], seen her in recent times. This may be inaccurate. Apparently has received an infusion last month. When doing well, he is coherent with no cognitive difficulties which are apparent, no psychosis, no difficulties with the sensorium. Has had a similar presentation in the past with internal preoccupation and catatonia-like symptoms CONSULTANTS INVOLVED: TREATMENT AND PROGRESS ON THE UNIT : The patient improved with treatment under Dr chapa [facility] COURSE: Patient was placed on Zyprexa and trazodone and improved sign ificantly DISCHARGE ASSESSMENT:, Unspecified, psychotic disorder MENTAL STATUS EXAMINATION ON DISCHARGE: Patient is a, 40-year old male, who is, admitted with internal preoccupation and catatonia like symptoms. Speech is. Normal. Language skills are normal. Thought processes including:. Denies hallucinations and delusions, obsessions, compulsions and phobias. Thought content: As above. Abstract reasoning, and computation: Able to extract. Description of associations:, No loose association. Description of abnormal or psychotic thoughts:. No abnormal or psychotic thought. At discharge. Judgment: Improved. Insight:. Improved. Orientation to 3. Recent and remote memory: Intact. Attention span and concentration: Intact. Language:. No disturbance. Fund of knowledge:. Full. Mood: Euthymic. Affect:, Congruent. MEDICATIONS ON DISCHARGE: -, Zyprexa for psychosis -Trazodone for sleep. -Home medications PLAN/FOLLOWUP ARRANGEMENTS: We'll be following with Dr. CHAPA. The amount of time spent in the coordination of care for this patient was approximately 45 minutes. Vital Signs/I&Os Vital Signs Date Time Temp Pulse Resp B/P (MAP) Pulse Ox O2 Delivery O2 Flow Rate FiO2 11/14/20 06:34 97.6 74 16 139/65 (89) 100 Room Air Laboratory Data Microbiology Microbiology 11/06/20 Blood Culture - Final, Complete NO GROWTH AFTER 5 DAYS 11/06/20 Blood Culture - Final, Complete NO GROWTH AFTER 5 DAYS Medications Scheduled Olanzapine (Olanzapine) 5 Mg Tablet, 5 MG PO QHS for Psychosis, #10 Scheduled PRN Naproxen (Naproxen) 500 Mg Tablet.dr, 500 MG PO BID PRN for HEADACHE, (Reported) Rizatriptan Benzoate (Maxalt Halal Meat Packer) 10 Mg Tab.rapdis, 10 MG PO BID PRN for MIGRA INE, (Reported) Trazodone HCl (Trazodone HCl) 50 Mg Tablet, 50 MG PO QHSP PRN for INSOMNIA, #10 Allergies Coded Allergies: Penicillins (Verified Allergy, Unknown, childhood allergy, 11/06/20) Sulfa (Sulfonamide Antibiotics) (Verified Allergy, Unknown, 11/06/20) aspirin (Verified Allergy, Unknown, 11/06/20) clindamycin (Verified Allergy, Unknown, 11/06/20) JD GAMBINO MD Nov 14, 2020 10:06
== END 2020-11-14 10:45 | disposition home or self-care (01) | DRG 753 ==
LOC: M ED 19:53 → M ED INP 19:54 → M PSY 11-07 04:15
PROVIDERS: ADMIT Psychiatry & Neurology Psychiatry; ATTEND Psychiatry & Neurology Child & Adolescent Psychiatry
DX: F31.5 Bipolar disorder, current episode depressed, severe, with psychotic features (principal); D83.9 Common variable immunodeficiency, unspecified; Z79.899 Other long term (current) drug therapy; Z20.822 Contact with and (suspected) exposure to COVID-19; Z88.0 Allergy status to penicillin; Z88.2 Allergy status to sulfonamides; Z88.1 Allergy status to other antibiotic agents; Z88.6 Allergy status to analgesic agent

== ENCOUNTER → 2021-05-16 | Outpatient (CLI) | payer OTHER, MEDICAID ==
[~2021-05-16] MED LIST changes: +AMIT25TA17 PO; -DOXY100C37 PO; +DOXY1CAP62 PO; +HYDR-643 PO; +MAXA10TA15 PO; +NAPR500T6 PO; +OLAN1TAB16 PO; +PATIENT COMMENT; +VARE1TA PO
[2021-05-16 11:47] LABS: BASO # 0.1 10^3/uL (0.0-0.2); BASO % 0.9 % (0.0-1.0); EOS # 0.3 10^3/uL (0.0-0.5); EOS % 2.5 % (0.0-3.0); HEMATOCRIT 45.5 % (42.0-52.0); HEMOGLOBIN 15.6 g/dl (13.5-17.5); LYMPH # 1.9 10^3/uL (1.5-5.0); LYMPH % 18.3 % (24.0-44.0); MEAN CORPUSCULAR HEMOGLOBIN 30.2 pg (27.0-33.0); MEAN CORPUSCULAR HGB CONC 34.3 g/dl (32.0-36.5); MEAN CORPUSCULAR VOLUME 88.2 fl (80.0-96.0); MONO # 0.9 10^3/uL (0.0-0.8); MONO % 8.4 % (2.0-8.0); NEUTROPHILS # 7.2 10^3/uL (1.5-8.5); NEUTROPHILS % 69.6 % (36.0-66.0); PLATELET COUNT, AUTOMATED 257 10^3/uL (150-450); RED BLOOD COUNT 5.16 10^6/uL (4.30-6.10); WHITE BLOOD COUNT 10.3 10^3/uL (4.0-10.0)
[2021-05-16 12:14] LABS: ALBUMIN 3.9 GM/DL (3.2-5.2); ALT/SGPT 33 U/L (12-78); BILIRUBIN,TOTAL 0.6 MG/DL (0.2-1.0); BLOOD UREA NITROGEN 12 MG/DL (7-18); CALCIUM LEVEL 9.4 MG/DL (8.5-10.1); CARBON DIOXIDE LEVEL 30 MEQ/L (21-32); CHLORIDE LEVEL 109 MEQ/L (98-107); CREATININE FOR GFR 0.88 MG/DL (0.70-1.30); GLOMERULAR FILTRATION RATE > 60.0 (>60); GLUCOSE, FASTING 85 MG/DL (70-100); IMMUNOGLOBULIN G 1130 MG/DL (681-1648); POTASSIUM SERUM 4.1 MEQ/L (3.5-5.1); SODIUM LEVEL 140 MEQ/L (136-145); TOTAL PROTEIN 7.2 GM/DL (6.4-8.2)
== END ==
LOC: M LAB 11:16
PROVIDERS: ATTEND Allergy & Immunology Allergy
DX: D83.9 Common variable immunodeficiency, unspecified (principal)

== ENCOUNTER → 2023-05-18 | Outpatient (CLI) | payer OTHER, MEDICAID ==
[~2023-05-18] MED LIST changes: -AMIT25TA17 PO; +AMIT25TA19 PO; +DOXY-443 PO; -DOXY1CAP62 PO; +FLUT50SP17; -FLUTISP; -MAXA10TA15 PO; +RIZA10TA66 PO
[2023-05-18 18:00] LABS: BASO # 0.1 10^3/uL (0.0-0.2); BASO % 1.2 % (0.0-1.0); EOS # 0.1 10^3/uL (0.0-0.5); EOS % 1.9 % (0.0-3.0); HEMATOCRIT 48.3 % (42.0-52.0); HEMOGLOBIN 16.2 g/dl (13.5-17.5); LYMPH # 1.7 10^3/uL (1.5-5.0); LYMPH % 24.9 % (24.0-44.0); MEAN CORPUSCULAR HEMOGLOBIN 29.8 pg (27.0-33.0); MEAN CORPUSCULAR HGB CONC 33.5 g/dl (32.0-36.5); MONO # 0.8 10^3/uL (0.0-0.8); MONO % 11.5 % (2.0-8.0); NEUTROPHILS # 4.1 10^3/uL (1.5-8.5); NEUTROPHILS % 60.2 % (36.0-66.0); PLATELET COUNT, AUTOMATED 245 10^3/uL (150-450); RED BLOOD COUNT 5.43 10^6/uL (4.30-6.10); WHITE BLOOD COUNT 6.8 10^3/uL (4.0-10.0)
[2023-05-18 18:21] LABS: CPK CREATINE PHOSPHOKINASE 63 U/L (46-171); URIC ACID 4.2 MG/DL (3.7-9.2)
[2023-05-18 18:22] LABS: ALBUMIN 3.9 G/DL (3.2-5.2); ALKALINE PHOSPHATASE 115 U/L (46-116); ALT/SGPT 35 U/L (7.0-40); AST/SGOT 21 U/L (<34); BILIRUBIN,TOTAL 0.4 MG/DL (0.3-1.2); BLOOD UREA NITROGEN 10 MG/DL (9-23); CALCIUM LEVEL 9.2 MG/DL (8.5-10.1); CARBON DIOXIDE LEVEL 27 MMOL/L (20-31); CHLORIDE LEVEL 106 MMOL/L (98-107); CREATININE FOR GFR 0.89 MG/DL (0.70-1.30); GLOMERULAR FILTRATION RATE > 60.0 (>60); GLUCOSE, FASTING 95 MG/DL (60-100); POTASSIUM SERUM 4.3 MMOL/L (3.5-5.1); SODIUM LEVEL 140 MMOL/L (136-145); TOTAL PROTEIN 7.1 G/DL (5.7-8.2)
[2023-05-18 18:24] LABS: RHEUMATOID FACTOR QUANT < 3.5 IU/ML (<14)
[2023-05-18 19:12] LABS: ERYTHROCYTE SEDIMENTATION RATE 22 mm/hr (0-15)
== END ==
LOC: M WUC 11:11
PROVIDERS: ATTEND Nurse Practitioner Family
DX: M12.9 Arthropathy, unspecified (principal); M79.10 Myalgia, unspecified site

== ENCOUNTER → 2023-08-17 | Outpatient (CLI) | payer OTHER | LOC: M PLAIMG 06:35 | PROVIDERS: ATTEND Specialist | DX: R20.9 Unspecified disturbances of skin sensation (principal); M50.00 Cervical disc disorder with myelopathy, unspecified cervical region; M50.122 Cervical disc disorder at C5-C6 level with radiculopathy; M25.78 Osteophyte, vertebrae ==

== ENCOUNTER → 2023-10-07 | Outpatient (CLI) | payer OTHER ==
[~2023-10-07] MED LIST changes: -FLUT50SP17; +FLUTISP
== END ==
LOC: M PLARAD 12:46
PROVIDERS: ATTEND Specialist
DX: M48.061 Spinal stenosis, lumbar region without neurogenic claudication (principal); M54.2 Cervicalgia

== ENCOUNTER → 2023-12-01 | Outpatient (CLI) | payer OTHER ==
[~2023-12-01] MED LIST changes: +RISP-105 PO; -RISP-8 PO
[2023-12-01 11:18] LABS: BASO # 0.1 10^3/uL (0.0-0.2); EOS # 0.2 10^3/uL (0.0-0.5); EOS % 2.8 % (0.0-3.0); HEMATOCRIT 49.1 % (42.0-52.0); HEMOGLOBIN 16.8 g/dl (13.5-17.5); LYMPH # 2.2 10^3/uL (1.5-5.0); LYMPH % 27.9 % (24.0-44.0); MEAN CORPUSCULAR HEMOGLOBIN 30.3 pg (27.0-33.0); MEAN CORPUSCULAR HGB CONC 34.2 g/dl (32.0-36.5); MEAN CORPUSCULAR VOLUME 88.5 fl (80.0-96.0); MONO # 0.9 10^3/uL (0.0-0.8); MONO % 11.2 % (2.0-8.0); NEUTROPHILS # 4.4 10^3/uL (1.5-8.5); NEUTROPHILS % 56.7 % (36.0-66.0); PLATELET COUNT, AUTOMATED 259 10^3/uL (150-450); RED BLOOD COUNT 5.55 10^6/uL (4.30-6.10); WHITE BLOOD COUNT 7.8 10^3/uL (4.0-10.0)
== END ==
LOC: M WUC 09:36
PROVIDERS: ATTEND Allergy & Immunology Allergy
DX: D83.9 Common variable immunodeficiency, unspecified (principal)

== ENCOUNTER → 2023-12-01 | Outpatient (CLI) | payer OTHER ==
[2023-12-01 11:52] LABS: ALBUMIN 3.9 G/DL (3.2-5.2); ALKALINE PHOSPHATASE 111 U/L (46-116); ALT/SGPT 33 U/L (7.0-40); AST/SGOT 16 U/L (<34); BILIRUBIN,TOTAL 0.4 MG/DL (0.3-1.2); BLOOD UREA NITROGEN 21 MG/DL (9-23); CALCIUM LEVEL 8.6 MG/DL (8.5-10.1); CARBON DIOXIDE LEVEL 31 MMOL/L (20-31); CHLORIDE LEVEL 110 MMOL/L (98-107); CHOLESTEROL LEVEL 243 MG/DL (<200); CHOLESTEROL RISK RATIO 6.34 (<5); GLOMERULAR FILTRATION RATE > 60.0 (>60); GLUCOSE, FASTING 90 MG/DL (60-100); HDL CHOLESTEROL 38.3 MG/DL (>40); LDL CHOLESTEROL 186.5 MG/DL (<100); NON-HDL-C 204.7 MG/DL; POTASSIUM SERUM 4.1 MMOL/L (3.5-5.1); SODIUM LEVEL 143 MMOL/L (136-145); TRIGLYCERIDES LEVEL 91 MG/DL (<150)
== END ==
LOC: M WUC 09:34
PROVIDERS: ATTEND Nurse Practitioner Family
DX: Z00.00 Encounter for general adult medical examination without abnormal findings (principal)

== ENCOUNTER → 2023-12-28 | Outpatient (CLI) | payer OTHER ==
[2023-12-28 16:51] LABS: APPEARANCE, URINE CLEAR (CLEAR); BACTERIA, URINE AUTO NEGATIVE (NEGATIVE); BILIRUBIN, URINE AUTO NEGATIVE (NEGATIVE); BLOOD, URINE BLOOD NEGATIVE (NEGATIVE); COLOR, URINE YELLOW (YELLOW); GLUCOSE, URINE (UA) AUTO NEGATIVE (NEGATIVE); KETONE, URINE AUTO NEGATIVE (NEGATIVE); LEUKOCYTE ESTERASE, URINE AUTO NEGATIVE (NEGATIVE); NITRITE, URINE AUTO NEGATIVE (NEGATIVE); PROTEIN, URINE AUTO NEGATIVE (NEGATIVE); RBC, URINE AUTO 2 /HPF (0-3); SPECIFIC GRAVITY URINE AUTO 1.012 (1.002-1.035); SQUAMOUS EPITHELIAL CELL UR AU 0 /HPF (0-6); UROBILINOGEN, URINE AUTO 0.2 mg/dL (0.0-2.0); WBC, URINE AUTO 0 /HPF (0-3)
[2023-12-28 16:57] LABS: BASO # 0.1 10^3/uL (0.0-0.2); BASO % 0.9 % (0.0-1.0); EOS # 0.3 10^3/uL (0.0-0.5); EOS % 3.3 % (0.0-3.0); HEMATOCRIT 48.2 % (42.0-52.0); HEMOGLOBIN 16.5 g/dl (13.5-17.5); LYMPH # 2.6 10^3/uL (1.5-5.0); LYMPH % 34.1 % (24.0-44.0); MEAN CORPUSCULAR HEMOGLOBIN 30.6 pg (27.0-33.0); MEAN CORPUSCULAR HGB CONC 34.2 g/dl (32.0-36.5); MEAN CORPUSCULAR VOLUME 89.4 fl (80.0-96.0); MONO # 0.9 10^3/uL (0.0-0.8); MONO % 11.3 % (2.0-8.0); NEUTROPHILS # 3.8 10^3/uL (1.5-8.5); NEUTROPHILS % 50.1 % (36.0-66.0); PLATELET COUNT, AUTOMATED 254 10^3/uL (150-450); RED BLOOD COUNT 5.39 10^6/uL (4.30-6.10); WHITE BLOOD COUNT 7.6 10^3/uL (4.0-10.0)
[2023-12-28 17:15] LABS: BLOOD UREA NITROGEN 14 MG/DL (9-23); CALCIUM LEVEL 9.6 MG/DL (8.5-10.1); CARBON DIOXIDE LEVEL 30 MMOL/L (20-31); CHLORIDE LEVEL 107 MMOL/L (98-107); CREATININE FOR GFR 0.85 MG/DL (0.70-1.30); GLOMERULAR FILTRATION RATE > 60.0 (>60); GLUCOSE, FASTING 106 MG/DL (60-100); POTASSIUM SERUM 4.3 MMOL/L (3.5-5.1); SODIUM LEVEL 138 MMOL/L (136-145)
[2023-12-28 17:21] LABS: INR 0.93; PROTHROMBIN TIME 12.2 SECONDS (12.5-14.5)
== END ==
LOC: M WUC 10:26
PROVIDERS: ATTEND Nurse Practitioner Family
DX: Z01.818 Encounter for other preprocedural examination (principal)

== ENCOUNTER → 2023-12-29 | Outpatient (REF) | payer OTHER | LOC: M LAB REF 13:19 | PROVIDERS: ATTEND Nurse Practitioner Family | DX: Z01.818 Encounter for other preprocedural examination (principal) ==

== ENCOUNTER → 2024-01-10 | Outpatient (REF) | payer OTHER | LOC: M LABWUC 16:17 | PROVIDERS: ATTEND Nurse Practitioner Family | DX: R73.02 Impaired glucose tolerance (oral) (principal) ==

== ENCOUNTER → 2024-03-13 | Outpatient (REF) | payer OTHER ==
[~2024-03-13] MED LIST changes: +DOXY-323 PO; -DOXY-443 PO
[2024-03-13 18:59] LABS: ALBUMIN 3.8 G/DL (3.2-5.2); ALKALINE PHOSPHATASE 121 U/L (46-116); ALT/SGPT 54 U/L (7.0-40); AST/SGOT 26 U/L (<34); BILIRUBIN,TOTAL 0.6 MG/DL (0.3-1.2); BLOOD UREA NITROGEN 15 MG/DL (9-23); CALCIUM LEVEL 9.9 MG/DL (8.5-10.1); CARBON DIOXIDE LEVEL 28 MMOL/L (20-31); CHLORIDE LEVEL 105 MMOL/L (98-107); CHOLESTEROL LEVEL 189 MG/DL (<200); CHOLESTEROL RISK RATIO 4.96 (<5); CREATININE FOR GFR 0.85 MG/DL (0.70-1.30); GLOMERULAR FILTRATION RATE > 60.0 (>60); GLUCOSE, FASTING 95 MG/DL (60-100); HDL CHOLESTEROL 38.1 MG/DL (>40); LDL CHOLESTEROL 127.3 MG/DL (<100); NON-HDL-C 150.9 MG/DL; POTASSIUM SERUM 4.1 MMOL/L (3.5-5.1); SODIUM LEVEL 137 MMOL/L (136-145); TRIGLYCERIDES LEVEL 118 MG/DL (<150)
== END ==
LOC: M LABWUC 16:36
PROVIDERS: ATTEND Nurse Practitioner Family
DX: E78.5 Hyperlipidemia, unspecified (principal)

== ENCOUNTER → 2024-04-25 | Outpatient (REF) | LOC: M PLAIMG 09:31 | PROVIDERS: ATTEND Internal Medicine | DX: R52 Pain, unspecified (principal) ==

== ENCOUNTER → 2024-05-30 | Outpatient (CLI) | payer OTHER ==
[2024-05-30 19:18] LABS: BASO # 0.1 10^3/uL (0.0-0.2); BASO % 1.1 % (0.0-1.0); EOS # 0.4 10^3/uL (0.0-0.5); EOS % 4.6 % (0.0-3.0); HEMATOCRIT 46.3 % (42.0-52.0); HEMOGLOBIN 16.1 g/dl (13.5-17.5); LYMPH # 2.5 10^3/uL (1.5-5.0); LYMPH % 30.6 % (24.0-44.0); MEAN CORPUSCULAR HEMOGLOBIN 30.4 pg (27.0-33.0); MEAN CORPUSCULAR HGB CONC 34.8 g/dl (32.0-36.5); MEAN CORPUSCULAR VOLUME 87.4 fl (80.0-96.0); MONO # 0.9 10^3/uL (0.0-0.8); MONO % 11.1 % (2.0-8.0); NEUTROPHILS # 4.3 10^3/uL (1.5-8.5); NEUTROPHILS % 52.2 % (36.0-66.0); PLATELET COUNT, AUTOMATED 262 10^3/uL (150-450); WHITE BLOOD COUNT 8.3 10^3/uL (4.0-10.0)
== END ==
LOC: M WUC 15:20
PROVIDERS: ATTEND Allergy & Immunology Allergy
DX: D83.9 Common variable immunodeficiency, unspecified (principal)

== ENCOUNTER → 2024-06-21 | Outpatient (CLI) | payer OTHER ==
[~2024-06-21] MED LIST changes: -DOXY-323 PO; +DOXY-441 PO; +NAPR-1405 PO; -NAPR500T6 PO
== END ==
LOC: M PAIN 08:00
PROVIDERS: ATTEND Nurse Practitioner Family
DX: M54.2 Cervicalgia (principal); M79.18 Myalgia, other site; M96.1 Postlaminectomy syndrome, not elsewhere classified; G89.29 Other chronic pain; D83.9 Common variable immunodeficiency, unspecified; F17.210 Nicotine dependence, cigarettes, uncomplicated; Z79.891 Long term (current) use of opiate analgesic; Z79.899 Other long term (current) drug therapy; Z88.0 Allergy status to penicillin; Z88.1 Allergy status to other antibiotic agents; Z88.2 Allergy status to sulfonamides; Z88.6 Allergy status to analgesic agent; Z88.7 Allergy status to serum and vaccine; Z91.048 Other nonmedicinal substance allergy status

== ENCOUNTER → 2024-07-12 | Outpatient (CLI) | payer OTHER ==
[~2024-07-12] MED LIST changes: +TRIAMCINOLONE ACETONIDE SUSP 40MG/ML 1ML VIAL As Ordered ONE; +diazePAM 5MG TABLET As Ordered ONE; +oxyCODONE 5MG TAB As Ordered ONE
== END ==
LOC: M PAIN 14:00
PROVIDERS: ATTEND Anesthesiology
DX: M79.12 Myalgia of auxiliary muscles, head and neck (principal); F17.290 Nicotine dependence, other tobacco product, uncomplicated; Z79.891 Long term (current) use of opiate analgesic; Z79.899 Other long term (current) drug therapy; Z88.0 Allergy status to penicillin; Z88.1 Allergy status to other antibiotic agents; Z88.6 Allergy status to analgesic agent; Z88.7 Allergy status to serum and vaccine; Z91.048 Other nonmedicinal substance allergy status; G89.29 Other chronic pain
CPT/HCPCS: 20552; J0665; J3301

== ENCOUNTER → 2024-08-01 | Outpatient (REF) | payer OTHER ==
[~2024-08-01] MED LIST changes: +B-2100TA PO; +DULO1CAP6 PO; +EMGA120I; +GABA-284 PO; +LISI20TA37 PO; +MAGN400C PO; +PROP40TA62 PO; +RIZA5TAB2; +TIZA10TA PO; -TRIAMCINOLONE ACETONIDE SUSP 40MG/ML 1ML VIAL As Ordered ONE; -diazePAM 5MG TABLET As Ordered ONE; -oxyCODONE 5MG TAB As Ordered ONE
[2024-08-12 23:28] LABS: ALDOS/RENIN RATIO 1.5 Ratio (0.9-28.9); RENIN ACTIVITY 5.2 ng/mL/h (0.25-5.82)
== END ==
LOC: M LAB REF 11:07
PROVIDERS: ATTEND Internal Medicine Nephrology
DX: I10 Essential (primary) hypertension (principal)

== ENCOUNTER → 2024-08-14 | Outpatient (CLI) | payer OTHER ==
[~2024-08-14] MED LIST changes: -B-2100TA PO; -DULO1CAP6 PO; -EMGA120I; -GABA-284 PO; -LISI20TA37 PO; -MAGN400C PO; -PROP40TA62 PO; -RIZA5TAB2; -TIZA10TA PO
== END ==
LOC: M SOG 07:50
PROVIDERS: ATTEND Physician Assistant
DX: M79.644 Pain in right finger(s) (principal)

== ENCOUNTER → 2024-08-17 | Outpatient (CLI) | payer OTHER | LOC: M PAIN 11:15 | PROVIDERS: ATTEND Nurse Practitioner Family | DX: M50.122 Cervical disc disorder at C5-C6 level with radiculopathy (principal); M96.1 Postlaminectomy syndrome, not elsewhere classified; M47.812 Spondylosis without myelopathy or radiculopathy, cervical region; G89.29 Other chronic pain; D83.9 Common variable immunodeficiency, unspecified; F17.210 Nicotine dependence, cigarettes, uncomplicated; Z79.891 Long term (current) use of opiate analgesic; Z88.0 Allergy status to penicillin; Z88.2 Allergy status to sulfonamides; Z88.1 Allergy status to other antibiotic agents; Z88.7 Allergy status to serum and vaccine; Z91.048 Other nonmedicinal substance allergy status ==

== ENCOUNTER 2024-09-07 07:03 | Day surgery (SDC) | payer OTHER ==
[~2024-09-07] VITALS: Ht 170.2 cm; Wt 94.8 kg
[~2024-09-07 07:03] MED LIST changes: +B-2100TA PO; +DULO1CAP6 PO; +EMGA120I; +GABA-284 PO; +LISI20TA37 PO; +MAGN400C PO; +PROP40TA62 PO; +RIZA5TAB2; +TIZA10TA PO
[2024-09-07] MEDS ORDERED: SODIUM BICARBONATE 8.4% INJ 50MEQ 50ML VIAL XX ONE (09:00)
[2024-09-07] MEDS ORDERED: LIDOCAINE 1% SDV 30ML VIAL XX ONE (09:00)
[2024-09-07] MEDS: BACITRACIN OINTMENT 30GM TUBE As Ordered ONE (09:50)
[2024-09-07 10:00] VITALS: TEMP 97.4; O2SAT 100
[2024-09-07 10:47] VITALS: BP 224/120
[2024-09-07] MEDS: lisinopriL 40MG TAB PO STA (10:47)
[2024-09-07 11:35] VITALS: BP 150/100
== END 2024-09-07 11:45 | disposition home or self-care (01) ==
LOC: M SDC 07:03
PROVIDERS: ATTEND Orthopaedic Surgery Hand Surgery
DX: L72.0 Epidermal cyst (principal); I10 Essential (primary) hypertension; Z88.0 Allergy status to penicillin; Z88.2 Allergy status to sulfonamides; Z88.1 Allergy status to other antibiotic agents; Z88.6 Allergy status to analgesic agent; Z79.899 Other long term (current) drug therapy; F17.210 Nicotine dependence, cigarettes, uncomplicated

== ENCOUNTER → 2024-09-13 | Outpatient (CLI) | payer OTHER ==
[2024-09-18 00:06] LABS: AMPHETAMINE SCREEN, URINE Negative ng/mL (Cutoff=1000); BARBITURATES SCREEN, URINE Negative ng/mL (Cutoff=200); BENZODIAZEPINES, URINE SCREEN Negative ng/mL (Cutoff=200); CANNABINOID SCREEN, URINE Negative ng/mL (Cutoff=20); COCAINE SCREEN, URINE Negative ng/mL (Cutoff=300); CREATININE, URINE 103.9 mg/dL (20.0-300.0); METHADONE, URINE SCREEN Negative ng/mL (Cutoff=300); OPIATE SCREEN, URINE Negative ng/mL (Cutoff=300); OXYCODONE, SCREEN, URINE Negative ng/mL (Cutoff=100); PCP SCREEN, URINE Negative ng/mL (Cutoff=25); SPECIFIC GRAVITY, URINE 1.024 (.); pH, URINE 6.3 (4.5-8.9)
== END ==
LOC: M WUC 12:55
PROVIDERS: ATTEND Internal Medicine Rheumatology
DX: M15.0 Primary generalized (osteo)arthritis (principal); Z79.899 Other long term (current) drug therapy; Z79.891 Long term (current) use of opiate analgesic

== ENCOUNTER → 2024-09-27 | Outpatient (CLI) | payer OTHER ==
[~2024-09-27] MED LIST changes: +PROHANCE 279.3MG/ML 15ML VIAL ONE; +PROHANCE 279.3MG/ML 5ML VIAL ONE
== END ==
LOC: M PLAIMG 12:07
PROVIDERS: ATTEND Nurse Practitioner Family
DX: M96.1 Postlaminectomy syndrome, not elsewhere classified (principal)
CPT/HCPCS: 72156; A9576

== ENCOUNTER → 2024-10-08 | Outpatient (CLI) | payer OTHER ==
[~2024-10-08] MED LIST changes: -PROHANCE 279.3MG/ML 15ML VIAL ONE; -PROHANCE 279.3MG/ML 5ML VIAL ONE
== END ==
LOC: M PAIN 16:45
PROVIDERS: ATTEND Nurse Practitioner Family
DX: M50.10 Cervical disc disorder with radiculopathy, unspecified cervical region (principal); M96.1 Postlaminectomy syndrome, not elsewhere classified; G89.29 Other chronic pain; D83.9 Common variable immunodeficiency, unspecified; F17.210 Nicotine dependence, cigarettes, uncomplicated; Z79.891 Long term (current) use of opiate analgesic; Z88.0 Allergy status to penicillin; Z88.1 Allergy status to other antibiotic agents; Z88.2 Allergy status to sulfonamides; Z88.7 Allergy status to serum and vaccine; Z91.048 Other nonmedicinal substance allergy status

== ENCOUNTER → 2024-10-30 | Outpatient (CLI) | payer OTHER | LOC: M PAIN 14:30 | PROVIDERS: ATTEND Anesthesiology | DX: M96.1 Postlaminectomy syndrome, not elsewhere classified (principal); M47.812 Spondylosis without myelopathy or radiculopathy, cervical region; M54.2 Cervicalgia; F17.210 Nicotine dependence, cigarettes, uncomplicated; Z79.899 Other long term (current) drug therapy; Z88.0 Allergy status to penicillin; Z88.1 Allergy status to other antibiotic agents; Z88.2 Allergy status to sulfonamides; Z88.6 Allergy status to analgesic agent; Z88.7 Allergy status to serum and vaccine; Z91.048 Other nonmedicinal substance allergy status ==

== ENCOUNTER → 2025-05-09 | Outpatient (CLI) | payer OTHER ==
[~2025-05-09] MED LIST changes: -ABIL400I IM; +ARIP400S IM; -PROZ20CA11 PO; +PROZ20CA12 PO
[2025-05-09 18:17] LABS: BASO # 0.1 10^3/uL (0.0-0.2); BASO % 1.4 % (0.0-1.0); EOS # 0.3 10^3/uL (0.0-0.5); EOS % 3.9 % (0.0-3.0); LYMPH # 2.1 10^3/uL (1.5-5.0); LYMPH % 33.3 % (24.0-44.0); MONO # 0.6 10^3/uL (0.0-0.8); MONO % 9.5 % (2.0-8.0); NEUTROPHILS # 3.3 10^3/uL (1.5-8.5); NEUTROPHILS % 51.6 % (36.0-66.0); PLATELET COUNT, AUTOMATED 276 10^3/uL (150-450)
== END ==
LOC: M PLALAB 16:00
PROVIDERS: ATTEND Nurse Practitioner Family
DX: D83.9 Common variable immunodeficiency, unspecified (principal)